=== PATIENT | male | born 1955 | race African-American/Black ===

== ENCOUNTER 2018-07-09 00:34 | Observation (INO) | payer OTHER, SELFPAY ==
[2018-07-09] MEDS ORDERED: Nitroglycerin 0.4 MG TAB (25 Tab Bottle) ONE (00:59)
[2018-07-09] MEDS ORDERED: Morphine 4 MG/ML VIAL ONE (01:02)
[2018-07-09] MEDS ORDERED: Clopidogrel Bisulfate 75 MG TAB ONE (01:02)
[2018-07-09 01:05] LABS: #Eosinphils 0.1 thou/uL (0.0-0.7); #Lymphocytes 1.8 thou/uL (1.20-3.40); #Monocytes 0.4 thou/uL (0.11-0.59); #Neutrophils 2.1 thou/uL (1.40-6.50); %Basophils 0.6 % (0.0-1.0); %Eosinophils 1.6 % (0.0-10.0); %Lymphocytes 41.5 % (21.0-51.0); %Monocytes 8.9 % (0.0-10.0); %Neutrophils 47.4 % (42.0-75.0); Hemoglobin 11.4 g/dL (14.0-18.0); Mean Corpuscular HGB CONC 32.1 g/dL (32.0-36.0); Mean Corpuscular Hemoglobin 27.7 pg (27.0-31.0); Mean Corpuscular Volume 86.1 fL (78.0-98.0); Mean Platelet Volume 6.5 fL (7.4-10.4); Platelet Count 224 thou/uL (130-400); Red Blood Cell (RBC) Count 4.12 mill/uL (4.70-6.10); White Blood Cell (WBC) Count 4.4 thou/uL (4.8-10.8)
[2018-07-09 01:28] LABS: ALT (SGPT) Less than 7 U/L (8-55); AST (SGOT) 12 U/L (5-34); Albumin 3.5 g/dL (3.5-5.0); Alkaline Phosphatase 55 U/L (40-150); Anion Gap 11 mmol/L (10-20); BUN (Urea Nitrogen) 24 mg/dL (8.4-25.7); Bilirubin, Total 0.3 mg/dL (0.2-1.2); CK (CPK) 67 U/L (30-200); Calc. Creatinine Clearance 0 mL/min (70-130); Calcium 8.9 mg/dL (7.8-10.44); Carbon Dioxide 25 mmol/L (22-29); Chloride 107 mmol/L (98-107); Estimated GFR-MDRD 43; Globulin 3.2 g/dL (2.4-3.5); Glucose 168 mg/dL (70-105); Lipase 33 U/L (8-78); Protein, Total 6.7 g/dL (6.0-8.3); Sodium 139 mmol/L (136-145)
[2018-07-09 01:40] LABS: Troponin I Less than 0.010 ng/mL (< 0.028)
[2018-07-09] MEDS ORDERED: Acetaminophen 325 MG TAB PO PRN ×2 (03:43→09:34)
[2018-07-09] MEDS ORDERED: Nitroglycerin 0.4 MG TAB (25 Tab Bottle) SL PRN (03:44)
[2018-07-09] MEDS ORDERED: Ondansetron HCl/PF 4 MG/2 ML Vial IVP PRN (03:47)
[2018-07-09] MEDS ORDERED: hydrALAZINE 20 MG/ML VIAL SLOW IVP PRN ×2 (03:47→09:48)
[2018-07-09 03:58] VITALS: BMI 27.9
[2018-07-09 04:50] LABS: Cardiac Risk 5.1 (Less than 4.5)
[2018-07-09 04:55] LABS: Troponin I Less than 0.010 ng/mL (< 0.028)
[2018-07-09 07:37] LABS: Troponin I Less than 0.010 ng/mL (< 0.028)
--- NOTE | 2018-07-09 08:26 | RAD ---
CHEST 1 VIEW: HISTORY: Chest pain. COMPARISON: 02/19/17. FINDINGS: Cardiac silhouette is magnified by projection. Pulmonary vasculature upper limits of normal. Medias tinum is midline. No lobar consolidation or evidence of pneumothorax. IMPRESSION: No active cardiopulmonary abnormalities are demonstrated. POS: [facility]
[2018-07-09] MEDS ORDERED: Pantoprazole 40 MG VIAL IVP SCH (09:00)
[2018-07-09] MEDS ORDERED: Nitroglycerin 0.4 MG TAB (25 Tab Bottle) PO PRN (09:34)
[2018-07-09] MEDS ORDERED: Sodium Chloride 0.9% 1,000 ML IV SCH (09:45)
[2018-07-09] MEDS ORDERED: Dextrose 5% in Water 1,000 ML IV PRN (09:45)
[2018-07-09] MEDS ORDERED: HumaLOG 300 UNITS/3 ML VIAL SC PRN (09:45)
[2018-07-09] MEDS ORDERED: Dextrose 50% Abboject 50 ML SYRINGE SLOW IVP PRN (09:45)
[2018-07-09] MEDS: Heparin 5,000 UNITS/ML VIAL SC SCH ×2 (14:37→21:46)
[2018-07-09] MEDS ORDERED: Amlodipine 5 MG TAB PO SCH (14:45)
--- NOTE | 2018-07-09 16:05 | PRG ---
DATE OF SERVICE: 07/09/2018 REASON FOR CONSULTATION: Recurrent chest pain. Mr. Rayshawn Richards is a delightful 62-year-old gentleman. He was seen here in 2017 with chest estrada n, found to have minimal coronary atherosclerosis as will be outlined below. He is readmitted with c hest pain. Mr. Richards recently had a stroke and he was in [place] at that time where he lives primarily. His w gill on the phone tells me that the patient's blood pressure was elevated as well and he was on lisino pril and the dose was increased. He came into the hospital. He has left lower lateral chest pain du plicated with palpation. There is no substernal chest pain, pressure, heaviness or squeezing, really nothing to suggest angina. In view of his past history, he was brought to the hospital for observat ion and possible admission. MEDICATIONS: 1. He takes aspirin 81 mg a day. 2. He is not on a statin. 3. Metoprolol 50 mg twice daily. 4. Lisinopril 40 mg a day. He lists aspirin as an allergy, but he is not allergic as he is taking 81 mg a daily. REVIEW OF SYSTEMS: CONSTITUTIONAL: No significant weight gain or loss. VISION: No changes. HEARING: No changes. PULMONARY: No cough or wheezing. GASTROINTESTINAL: No nausea, vomiting, diarrhea. SKIN: No rashes. NEUROLOGIC: No unilateral weakness or numbness. PSYCHIATRIC: No unusual depression or anxiety. PHYSICAL EXAMINATION: GENERAL: This is a pleasant gentleman, in no distress. VITAL SIGNS: Blood pressure is still high, earlier it was 190/112, now 164/100, pulse 87 regular. EYES: Sclerae nonicteric. Mouth, mucous membranes moist. NECK: Supple. No lymphadenopathy. LUNGS: Clear. CARDIAC: Normal S1, normal S2. There is no murmur, rub or gallop. ABDOMEN: Soft, nontender. EXTREMITIES: No clubbing or cyanosis. He has no edema. He has very strong dorsalis pedis pulses bi laterally. DIAGNOSTIC DATA: EKG sinus rhythm, some nonspecific T-wave changes in V5 and V6, all the cardiac enz ymes were negative. I reviewed cardiac catheterization report, there was a very distal lesion in the distal LAD near the apex. ASSESSMENT: 1. Noncardiac chest pain, rib pain. 2. Recent stroke. 3. Hypertension. 4. Worsening renal function on increased lisinopril dose. PLAN: 1. Continue intravenous hydration. 2. Would add amlodipine 5 mg today, then increase to 10 mg daily if needed. 3. Reduce lisinopril to 10 mg a day. 4. We will be able to release him tomorrow. 5. He needs to be on a statin. 6. He can take aspirin 81 mg a day which he has been taking at home. Dr. Shaw to see if needed tomorrow. The patient should be able to be released home tomorrow. I wo uld also recommend consideration for giving him nitroglycerin if needed. I explained to him that thi s is for substernal squeezing chest pain, not the left lower lateral pain that he has been having. H is coronary artery disease should be treated medically.
--- NOTE | 2018-07-09 16:15 | HP ---
PRIMARY CARE PROVIDER: Dr. Silverio Newman. CHIEF COMPLAINT: Chest pain. HISTORY OF PRESENT ILLNESS: Mr. Richards is a pleasant 62-year-old gentleman who was seen at [facility] on 07/09/2018. He was able to provide some history. His son who was by the bedside was also able to provide some co llateral history. Additional history was obtained from review of medical records and from discussion with the emergency room physician. The pain reportedly started last night while he was sitting at his house. According to the son, the patient kept falling asleep and was lethargic. He also appeared confused at times that has improved since then. The patient describes it as left-sided chest pain, sharp, 10/10, constant, accompanied b y lightheadedness. He denies any cough, fevers or chills. He denies any nausea or vomiting. He den ies any shortness of breath or diaphoresis. The pain was nonradiating. REVIEW OF SYSTEMS: All other systems reviewed and found to be negative. PAST MEDICAL HISTORY: Coronary artery disease, he had a cardiac catheterization in 02/2017, at which time he was found to have severe distal LAD disease, small vessel 1.5 mm, mild left circumflex and R CA disease and elevated LVEDP. He also has a history of diabetes mellitus type 2, hypertension, and cerebrovascular accident. PAST SURGICAL HISTORY: Abscess on the back, status post incision and drainage. FAMILY HISTORY: Coronary artery disease in his parents. SOCIAL HISTORY: The patient denies tobacco use, alcohol use or recreational drug use. ALLERGIES: ASPIRIN. CURRENT MEDICATIONS: Glipizide 10 mg 2 times a day, lisinopril 20 mg daily, metformin 1000 mg 2 time s a day. PHYSICAL EXAMINATION: GENERAL: Mr. Richards is awake and alert, not in acute distress. VITAL SIGNS: Blood pressure is 156/89, pulse 89, respiratory rate 16, and oxygen saturation 94% on r oom air. He is afebrile. EYES: No scleral icterus. No conjunctival pallor. ENT: Dry mucosal membranes. No oropharyngeal erythema or exudates. NECK: Supple, nontender. Trachea is midline. RESPIRATORY: Accessory muscles of breathing are not active. Chest wall movements are symmetric bila terally. LUNGS: Clear to auscultation without wheeze, rhonchi or crepitations. CARDIOVASCULAR: S1 and S2 are heard, regular. Peripheral pulses palpable. No carotid bruit, no per icardial rub. ABDOMEN: Soft, nontender, bowel sounds heard, no hepatomegaly, no splenomegaly. NEUROLOGIC: Cranial nerves II-XII intact. Deep tendon reflexes 2+. MUSCULOSKELETAL: Power is 5/5 in all 4 extremities. SKIN: No rashes or subcutaneous nodules. LYMPHATIC: No cervical lymphadenopathy. PSYCHIATRIC: Normal mood, normal affect. The patient is oriented to person, place, and time. DATABASE: Mr. Richards's labs and investigations were reviewed. I reviewed his electrocardiogram, w hich shows normal sinus rhythm, no ST changes to suggest an acute coronary syndrome. I also reviewed his chest x-ray, which does not show any pulmonary infiltrates. He has a leukopenia with 4400 white cells, normocytic anemia with hemoglobin 11.4, normal platelet count, normal electrolytes, elevated creatinine of 1.92, last known creatinine 1.36 on 02/21/2017, normal blood urea nitrogen, unremarkabl e liver profile and normal lipase. Troponin I is negative x2. ASSESSMENT AND PLAN: Mr. Richards is a pleasant 62-year-old gentleman who was seen at [facility] on 07/09/2018. His problem list includes: 1. Chest pain: Differential is wide at this point. Given the findings from coronary angiography la [facility] May, it is unlikely to be one of the major cardiac vessels. Known coronary artery disease in dist al LAD was not amenable to treatment. I will consult Cardiology Service for opinion and help with kathleen vargas. 2. Acute on chronic kidney disease. He has a normal BUN. I will hold metformin for now. We will a lso hold lisinopril for now. We will recheck creatinine in the morning. We will provide him intrave nous fluids. 3. Hypertension: Monitor vital signs, titrate antihypertensives as needed. As mentioned earlier, l isinopril to be held for now. 4. Leukopenia: No evidence of any infection at this time. He will have his white count rechecked i n the morning. If it is persistent, he will need to be rechecked as an outpatient through his primar y care provider's office in a week or two and further management depending on the result. Many thanks for allowing me to participate in your patient's care. Please feel free to contact me wi th any questions or concerns. LEVEL OF RISK: High. LEVEL OF COMPLEXITY: High.
[2018-07-09] MEDS: Sodium Chloride 0.9% 1,000 ML IV SCH ×2 (16:44→21:45)
[2018-07-09] MEDS ORDERED: Atorvastatin Calcium 20 MG TAB PO SCH (21:00)
[2018-07-09] MEDS: Metoprolol Tartrate 50 MG TAB PO SCH (21:46)
[2018-07-10] MEDS ORDERED: Labetalol HCl 100 MG/20 ML VIAL SLOW IVP PRN (01:29)
[2018-07-10 05:40] LABS: #Eosinphils 0.1 thou/uL (0.0-0.7); #Lymphocytes 1.6 thou/uL (1.20-3.40); #Monocytes 0.3 thou/uL (0.11-0.59); #Neutrophils 2.9 thou/uL (1.40-6.50); %Basophils 0.5 % (0.0-1.0); %Eosinophils 1.4 % (0.0-10.0); %Lymphocytes 32.3 % (21.0-51.0); %Monocytes 6.8 % (0.0-10.0); %Neutrophils 59.1 % (42.0-75.0); Hemoglobin 11.8 g/dL (14.0-18.0); Mean Corpuscular HGB CONC 32.6 g/dL (32.0-36.0); Mean Corpuscular Hemoglobin 27.8 pg (27.0-31.0); Mean Corpuscular Volume 85.4 fL (78.0-98.0); Mean Platelet Volume 6.4 fL (7.4-10.4); Platelet Count 248 thou/uL (130-400); Red Blood Cell (RBC) Count 4.24 mill/uL (4.70-6.10)
[2018-07-10 05:49] LABS: Anion Gap 11 mmol/L (10-20); BUN (Urea Nitrogen) 14 mg/dL (8.4-25.7); Calc. Creatinine Clearance 80 mL/min (70-130); Calcium 8.7 mg/dL (7.8-10.44); Carbon Dioxide 23 mmol/L (22-29); Chloride 109 mmol/L (98-107); Estimated GFR-MDRD 73; Glucose 95 mg/dL (70-105); Potassium 3.5 mmol/L (3.5-5.1); Sodium 139 mmol/L (136-145)
[2018-07-10] MEDS: Metoprolol Tartrate 50 MG TAB PO SCH (06:35)
[2018-07-10] MEDS: Heparin 5,000 UNITS/ML VIAL SC SCH (08:07)
[2018-07-10 08:18] VITALS: BP 133/70; TEMP 98.3
[2018-07-10] MEDS ORDERED: Amlodipine 5 MG TAB PO SCH (09:00)
[2018-07-10] MEDS ORDERED: Lisinopril 10 MG TAB PO SCH (09:00)
[2018-07-10] MEDS ORDERED: Aspirin 81 mg Enteric Coated Tablet PO SCH (09:00)
[2018-07-10] MEDS ORDERED: Pioglitazone HCl 15 MG TAB PO SCH (09:00)
[2018-07-10] MEDS: Sodium Chloride 0.9% 1,000 ML IV SCH (10:33)
--- NOTE | 2018-07-10 12:49 | DIS ---
PRIMARY CARE PHYSICIAN: Dr. Silverio Newman in [place] DATE OF ADMISSION: 07/09/2018 DATE OF DISCHARGE: 07/10/2018 DISCHARGE DIAGNOSES: 1. Chest pain. 2. Probable musculoskeletal etiology for chest pain. 3. Acute renal insufficiency. CONDITION OF PATIENT ON THE DAY OF DISCHARGE: Stable. I assessed Mr. Richards on the day of dischar . He denies any chest pain at this time. Vital signs are stable. S1 and S2 are heard, regular. Lungs are clear to auscultation bilaterally. DISCHARGE MEDICATIONS: Glipizide 10 mg 2 times a day, metformin 1000 mg 2 times daily, Lopressor 50 mg 2 times a day, pioglitazone 30 mg daily, nitroglycerin 0.4 mg every 5 minutes as needed, patient t o seek medical help if not improving after 3 doses, amlodipine 5 mg daily, can be increased to 10 mg daily, started during this hospitalization, aspirin 81 mg daily, Lipitor 20 mg at bedtime, started du ring this hospitalization, lisinopril dose decreased to 10 mg daily. CONSULTATIONS DURING THIS HOSPITALIZATION: Dr. Taylor from Cardiology. HOSPITAL COURSE: Mr. Richards is a pleasant 62-year-old gentleman who was admitted to [facility] on 07/09/2018 for chest pain and acute renal insufficiency. Please refer to my h istory and physical note dated 07/09/2018 for further details. He was seen by Cardiology Service. I t was felt that his chest pain was likely musculoskeletal. He has been started on statin. His lisin opril dose was decreased due to renal insufficiency. He also received intravenous hydration. Creati nine improved to 1.23 on 07/10/2018, down from 1.92 on the day of admission. He had triglycerides 14 7, cholesterol 152, LDL cholesterol 93 and his total cholesterol 30. He has been started on statin. He had a D-dimer that was less than 0.27. His chest pain resolved. He is being discharged home in a stable condition. He had unremarkable ko er function test during this hospitalization. He is advised to follow up with his primary care provi delvin for monitoring of LFTs and for side effects from statin. On the day of discharge, he has white count 5000, hemoglobin 11.8, and platelet count 248,000. Sodiu m is 139, potassium 3.5, creatinine 1.23. Many thanks for allowing me to participate in your patient's care. Please feel free to contact me wi th any questions or concerns. DISCHARGE DESTINATION: Home.
--- NOTE | 2018-07-11 17:37 | EKG ---
Test Reason : CHESTPAIN Blood Pressure : / mmHG Vent. Rate : 080 BPM Atrial Rate : 080 BPM P-R Int : 148 ms QRS Dur : 082 ms QT Int : 378 ms P-R-T Axes : 036 -10 157 degrees QTc Int : 435 ms Normal sinus rhythm Abnormal ECG Confirmed by BIMAL VILLARREAL, WALT ([id number]), multimedia editor SOHAN HURST ([id number]) on 07/11/2018 5:36:53 PM Referred By: BIMAL Confirmed By:WALT WALLIS MD
== END 2018-07-10 14:30 | disposition home or self-care (01) ==
LOC: ERS 00:34 → 2SW 01:52
PROVIDERS: ADMIT Internal Medicine; ATTEND Internal Medicine
DX: R07.89 Other chest pain (principal); I12.9 Hypertensive chronic kidney disease with stage 1 through stage 4 chronic kidney disease, or unspecified chronic kidney disease; E11.22 Type 2 diabetes mellitus with diabetic chronic kidney disease; N18.9 Chronic kidney disease, unspecified; N17.9 Acute kidney failure, unspecified; I25.10 Atherosclerotic heart disease of native coronary artery without angina pectoris; D72.819 Decreased white blood cell count, unspecified; Z86.73 Personal history of transient ischemic attack (TIA), and cerebral infarction without residual deficits; Z79.82 Long term (current) use of aspirin; Z79.84 Long term (current) use of oral hypoglycemic drugs; Z79.899 Other long term (current) drug therapy
CPT/HCPCS: 36415; 36416; 71045; 80048; 80053; 80061; 82550; 83690; 83880; 84484; 85025; 85379; 90471; 90686; 93005; 96361; 96374; 96375; 96376; C9113; G0008; G0378; J0360; J1644; J2270; J2405

== ENCOUNTER 2018-09-16 18:37 | Emergency (ER) | payer OTHER ==
[2018-09-16] MEDS ORDERED: Fentanyl 100 MCG/2 ML VIAL ONE (18:47)
[2018-09-16] MEDS ORDERED: Ondansetron PF 4 MG/2 ML Vial ONE (18:47)
[2018-09-16 19:07] LABS: #Eosinphils 0.1 thou/uL (0.0-0.7); #Lymphocytes 2.4 thou/uL (1.20-3.40); #Monocytes 0.4 thou/uL (0.11-0.59); #Neutrophils 2.7 thou/uL (1.40-6.50); %Basophils 0.5 % (0.0-1.0); %Eosinophils 1.5 % (0.0-10.0); %Lymphocytes 43.1 % (21.0-51.0); %Monocytes 6.3 % (0.0-10.0); %Neutrophils 48.6 % (42.0-75.0); Hemoglobin 12.1 g/dL (14.0-18.0); Mean Corpuscular HGB CONC 31.5 g/dL (32.0-36.0); Mean Corpuscular Hemoglobin 27.2 pg (27.0-31.0); Mean Corpuscular Volume 86.5 fL (78.0-98.0); Mean Platelet Volume 6.8 fL (7.4-10.4); Platelet Count 313 thou/uL (130-400); Red Blood Cell (RBC) Count 4.45 mill/uL (4.70-6.10); White Blood Cell (WBC) Count 5.5 thou/uL (4.8-10.8)
[2018-09-16 19:16] LABS: Prothrombin Time 13.4 SEC (12.0-14.7)
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
[2018-09-16 20:01] LABS: ALT (SGPT) 11 U/L (8-55); AST (SGOT) 16 U/L (5-34); Alkaline Phosphatase 108 U/L (40-150); Anion Gap 14 mmol/L (10-20); BUN (Urea Nitrogen) 21 mg/dL (8.4-25.7); Bilirubin, Total 0.3 mg/dL (0.2-1.2); Calc. Creatinine Clearance 0 mL/min (70-130); Calcium 9.1 mg/dL (7.8-10.44); Carbon Dioxide 22 mmol/L (22-29); Chloride 108 mmol/L (98-107); Estimated GFR-MDRD 41; Globulin 4.3 g/dL (2.4-3.5); Glucose 190 mg/dL (70-105); Potassium 4.3 mmol/L (3.5-5.1); Protein, Total 8.3 g/dL (6.0-8.3); Sodium 140 mmol/L (136-145)
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
[2018-09-16] MEDS ORDERED: Lisinopril 10 MG TAB ONE (20:31)
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
--- NOTE | 2018-09-19 13:36 | EKG ---
Test Reason : TRAUMA Blood Pressure : / mmHG Vent. Rate : 091 BPM Atrial Rate : 091 BPM P-R Int : 192 ms QRS Dur : 082 ms QT Int : 356 ms P-R-T Axes : 053 017 -22 degrees QTc Int : 437 ms Normal sinus rhythm Confirmed by MARIO MCGUIRE DO ([id number]), acquisitions editor CANELO CARBONE ([id number]) on 09/19/2018 1:35:30 PM Referred By: MAYNOR Confirmed By:MARIO MCGUIRE DO
== END 2018-09-16 23:56 | disposition home or self-care (01) ==
LOC: ERS 18:37
DX: S70.02XA Contusion of left hip, initial encounter (principal); S70.311A Abrasion, right thigh, initial encounter; S80.212A Abrasion, left knee, initial encounter; E11.9 Type 2 diabetes mellitus without complications; I10 Essential (primary) hypertension; Z79.84 Long term (current) use of oral hypoglycemic drugs; Z79.899 Other long term (current) drug therapy; W17.89XA Other fall from one level to another, initial encounter
CPT/HCPCS: 36415; 70450; 71260; 72125; 72170; 74177; 80053; 85025; 85610; 86850; 86900; 86901; 93005; 96361; 96374; 96375; G0390; J2405; J3010

== ENCOUNTER 2020-03-31 20:00 | Inpatient (IN) | payer MEDICARE, MEDICAID, OTHER ==
[2020-03-31] MEDS ORDERED: Morphine 4 MG/ML VIAL ONE (21:15)
[2020-03-31] MEDS ORDERED: Ondansetron PF 4 MG/2 ML Vial ONE (21:15)
[2020-03-31 21:33] LABS: #Lymphocytes 0.9 thou/uL (1.20-3.40); #Monocytes 0.3 thou/uL (0.11-0.59); #Neutrophils 2.7 thou/uL (1.40-6.50); %Basophils 1.1 % (0.0-1.0); %Eosinophils 0.3 % (0.0-10.0); %Monocytes 8.5 % (0.0-10.0); Hemoglobin 11.1 g/dL (14.0-18.0); Mean Corpuscular HGB CONC 32.1 g/dL (32.0-36.0); Mean Corpuscular Hemoglobin 27.4 pg (27.0-31.0); Mean Corpuscular Volume 85.2 fL (78.0-98.0); Platelet Count 135 thou/uL (130-400); RBC Distribution Width 12.6 % (11.5-14.5); Red Blood Cell (RBC) Count 4.03 mill/uL (4.70-6.10)
[2020-03-31 21:55] LABS: ALT (SGPT) 11 U/L (8-55); AST (SGOT) 17 U/L (5-34); Albumin 3.1 g/dL (3.4-4.8); Alkaline Phosphatase 67 U/L (40-110); Anion Gap 11 mmol/L (10-20); BUN (Urea Nitrogen) 46 mg/dL (8.4-25.7); Bilirubin, Total 0.3 mg/dL (0.2-1.2); Calc. Creatinine Clearance 0 mL/min (70-130); Calcium 7.7 mg/dL (7.8-10.44); Carbon Dioxide 23 mmol/L (23-31); Chloride 106 mmol/L (98-107); Estimated GFR-MDRD 11; Globulin 3.6 g/dL (2.4-3.5); Glucose 145 mg/dL (80-115); Lipase 77 U/L (8-78); Potassium 4.3 mmol/L (3.5-5.1); Protein, Total 6.7 g/dL (5.8-8.1); Sodium 136 mmol/L (136-145)
[2020-03-31 22:19] LABS: Bacteria/HPF None Seen HPF (None Seen); Bilirubin Negative (Negative); Blood, Urine 2+ (Negative); Clarity Clear (Clear); Glucose, Urine (Dipstick) 200 mg/dL (Negative); Ketone, Urine Negative (Negative); Leukocyte Negative Leu/uL (Negative); Nitrite Negative (Negative); Protein, Urine (Dipstick) 600 mg/dL (Neg-Trace); Specific Gravity, Urine 1.021 (1.002-1.036); Squamous Epithelial 0-3 HPF (0-3); Urobilinogen Normal mg/dL (Less than 2); WBC/HPF 0-3 HPF (0-3); pH, Urine 6.5 (5.0-9.0)
--- NOTE | 2020-03-31 22:22 | CT ---
CT OF THE ABDOMEN AND PELVIS WITHOUT IV CONTRAST INDICATION: Generalized abdominal pain COMPARISON: January 11, 2020 FINDINGS: The lack of IV contrast limits evaluation of the solid organs of the abdomen and pelvis. ABDOMEN: Lung bases: There are patchy peripheral airspace opacities within both lungs suspicious for pneumonia . Liver: No focal lesion. Gallbladder: Normal appearing. Pancreas: Normal. Adrenal glands: Normal. Spleen: Normal. Kidneys and ureters: Normal. No hydronephrosis. Vasculature: There are mild vascular calcifications seen involving the visualized vasculature. Lymph nodes:No lymphadenopathy. Free fluid in abdomen:No free fluid is evident. PELVIS: Small and large bowel: There is a moderate amount retained stool within the colon. The small bowel is of normal caliber. Appendix:Normal Bladder: Small amount of intraluminal gas is seen within the bladder. Rectal and perirectal soft tissues:Normal. Reproductive structures: Normal. Free fluid in pelvis: No free fluid is evident. Lymphadenopathy pelvis: No lymphadenopathy is evident. Osseous structures: There is a hemangioma within the right aspect of L3. There is scattered degenera tive and osteoarthritic changes. Soft tissues:Normal. IMPRESSION: 1. Patchy peripheral subpleural groundglass opacities are suspicious for pneumonia. This is a pattern that can be seen with atypical infectious processes such as viral pneumonia. Would recommend consideration for Covid testing as this is a pattern that can be seen with a Covid respiratory illnes s. 2. Small amount of intraluminal gas within the bladder. Recommend correlation for recent instrumentat ion. UTIs not excluded. Recommend correlation clinical examination and urinary laboratories.
[2020-04-01] MEDS ORDERED: hydrALAZINE 20 MG/ML VIAL ONE (01:52)
[2020-04-01] MEDS ORDERED: cefTRIAXone\\ROCEPHIN 1 GM VIAL ONE (01:52)
[2020-04-01] MEDS ORDERED: Azithromycin 500 MG VIAL ONE (02:30)
[2020-04-01] MEDS ORDERED: HYDROcodone/Acetaminophen 5/325 mg Tablet PO PRN (02:30)
[2020-04-01] MEDS ORDERED: Acetaminophen 325 MG TAB PO PRN ×2 (02:30→04:29)
[2020-04-01] MEDS ORDERED: Labetalol HCl 100 MG/20 ML VIAL SLOW IVP PRN ×2 (02:30→04:30)
[2020-04-01] MEDS ORDERED: Ondansetron PF 4 MG/2 ML Vial IVP PRN ×3 (02:30→04:30)
[2020-04-01] MEDS ORDERED: Promethazine HCl 12.5 MG in Sodium Chloride 0.9% 50 ML IVPB PRN (02:30)
[2020-04-01] MEDS ORDERED: Azithromycin 500 MG in Syringe 0 ML IVPB ONE (02:30)
[2020-04-01] MEDS ORDERED: cloNIDine 0.1 MG TAB PO PRN (02:30)
[2020-04-01] MEDS ORDERED: hydrALAZINE 20 MG/ML VIAL SLOW IVP PRN (02:30)
[2020-04-01] MEDS ORDERED: Guaifenesin DM 100-10/5 ML UDCUP PO PRN ×2 (02:30→04:30)
[2020-04-01] MEDS ORDERED: Dextrose 5% in Water 1,000 ML IV PRN ×2 (02:32→04:31)
[2020-04-01] MEDS ORDERED: Dextrose 50% Abboject 50 ML SYRINGE SLOW IVP PRN ×2 (02:32→04:32)
[2020-04-01] MEDS ORDERED: Insulin Regular 300 UNITS/3 ML VIAL SC PRN (02:32)
--- NOTE | 2020-04-01 02:33 | PDOC.HHP ---
Hospitalist HPI - History of Present Illness Abdominal pain History of Present Illness: Patient is a 64 year old male with PMH HTN, CKD who presents to the ED for abdominal pain beginning today, he reports it is diffuse but worse in the RLQ and he admits to nausea and vomiting, denies diarrhea, denies chest pain or shortness of breath or fever. Denies dysuria, denies flank pain or back tenderness. He has been unable to take PO. NTG and zofran given by EMS without relief. He does not have a PCP. He has CKD, normal baseline Cr in 3-4 range, in ED labs revealed Cr of 6.13, with CO2 and K within normal limits. UA positve for erythrocytes, glucose, protein. He was febrile in ED to 100.3. He has recent exposure to covid, his sister [address] abdomen in ED concerning for bilateral pneumonia/COVID based on visible sections of lungs, CXR ordered and pending. Hospitalist ROS - Review of Systems Constitutional: denies: fever, chills, sweats, weakness, malaise, other Eyes: denies: pain, vision change, conjunctivae inflammation, eyelid inflammation, redness, other Respiratory: denies: cough, dry, shortness of breath, hemoptysis, SOB with excertion, pleuritic pain, sputum, wheezing, other Cardiovascular: denies: chest pain, palpitations, orthopnea, paroxysmal noc. dyspnea, edema, light headedness, other Gastrointestinal: reports: nausea, vomiting, abdominal pain. denies: diarrhea, constipation, melena, hematochezia, other Genitourinary: denies: dysuria, frequency, incontinence, hematuria, retention, other Musculoskeletal: denies: neck pain, shoulder pain, arm pain, back pain, hand pain, leg pain, foot pain, other Skin: denies: rash, lesions, santosh, bruising, other Neurological: denies: weakness, numbness, incoordination, change in speech, confusion, seizures, other All other systems reviewed; all pertinent +/- noted in HPI/Subj Hospitalist History - Past Medical History Other Medical History: HTN CKD DM stroke 2016 - Past Surgical History Other Surgical History: back surgery - Family History Family History: reports: no pertinent history - Social History Smoking Status: Never smoker Alcohol: reports: None Drugs: reports: none - Exam General Appearance: NAD, awake alert Eye: PERRL, anicteric sclera ENT: normocephalic atraumatic, no oropharyngeal lesions, moist mucosa Neck: supple, symmetric, no JVD, no thyromegaly, no lymphadenopathy, no carotid bruit Heart: RRR, no murmur, no gallops, no rubs, normal peripheral pulses Respiratory: CTAB, no wheezes, no rales, no ronchi, normal chest expansion, no tachypnea, normal percussion Gastrointestinal: soft, non-distended, normal bowel sounds, no palpable masses, no hepatomegaly, no splenomegaly, no bruit Gastrointestinal - other findings: TTP in RLQ, no guarding or rebound Extremities: no cyanosis, no clubbing, no edema Skin: normal turgor, no lesions, no rashes Neurological: cranial nerve grossly intact, normal sensation to touch, no weakness, no focal deficits, no new deficit Musculoskeletal: normal tone, normal strength, no muscle wasting Psychiatric: normal affect, normal behavior, A&O x 3 Hospitalist Results - Labs Result Diagrams: 03/31/20 21:19 03/31/20 21:19 Lab results: WBC 4.0 thou/uL (4.8-10.8) L 03/31/20 21:19 Hgb 11.1 g/dL (14.0-18.0) L 03/31/20 21:19 Hct 34.4 % (42.0-52.0) L 03/31/20 21:19 MCV 85.2 fL (78.0-98.0) 03/31/20 21:19 Plt Count 135 thou/uL (130-400) 03/31/20 21:19 Neutrophils % 68.0 % (42.0-75.0) 03/31/20 21:19 Sodium 136 mmol/L (136-145) 03/31/20 21:19 Potassium 4.3 mmol/L (3.5-5.1) 03/31/20 21:19 Chloride 106 mmol/L (98-107) 03/31/20 21:19 Carbon Dioxide 23 mmol/L (23-31) 03/31/20 21:19 BUN 46 mg/dL (8.4-25.7) H 03/31/20 21:19 Creatinine 6.13 mg/dL (0.7-1.3) H 03/31/20 21:19 Glucose 145 mg/dL (80-115) H 03/31/20 21:19 Calcium 7.7 mg/dL (7.8-10.44) L 03/31/20 21:19 Total Bilirubin 0.3 mg/dL (0.2-1.2) 03/31/20 21:19 AST 17 U/L (5-34) 03/31/20 21: ALT 11 U/L (8-55) 03/31/20 21:19 Alkaline Phosphatase 67 U/L (40-110) 03/31/20 21:19 Serum Total Protein 6.7 g/dL (5.8-8.1) 03/31/20 21: Albumin 3.1 g/dL (3.4-4.8) L 03/31/20 21: Lipase 77 U/L (8-78) 03/31/20 21:19 Urine Ketones Negative mg/dL (Negative) 03/31/20 22:02 Urine Blood 2+ (Negative) A 03/31/20 22:02 Urine Nitrite Negative (Negative) 03/31/20 22:02 Ur Leukocyte Esterase Negative Tad/uL (Negative) 03/31/20 22:02 Urine RBC 7-10 HPF (0-3) A 03/31/20 22:02 Urine WBC 0-3 HPF (0-3) 03/31/20 22:02 Ur Squamous Epith Cells 0-3 HPF (0-3) 03/31/20 22:02 Urine Bacteria None Seen HPF (None Seen) 03/31/20 22:02 Additional comment: VITAL SIGNS Sat Apr 01, 2020 02:31 DINH Oleary, Becka BP: 178/104 Pulse: 89 Resp: 16 Temp: 98.6 (Oral) Pain: 7 O2 sat: 97 on (Room Air) Time: 04/01/2020 02:31. VITAL SIGNS Sat Apr 01, 2020 03:00 DINH Oleary Rachel BP: 169/104 Pulse: 89 Resp: 17 O2 sat: 97 on (Room Air) Time: 04/01/2020 03:00. Imaging reveiwed including abdominal CT report Hospitalist H&P A/P - Plan Plan: Patient is a 64 year old male with PMH HTN, CKD who presents to the ED for abdominal pain beginning today. # acute renal failure on CKD 4 - baseline Cr in 2-3 range, now 6.13, possibly secondary to uncontrolled HTN vs sepsis - treat HTN as below - trend BMP - I/Os, bladder scan to rule out retention - consult nephrology # abdominal pain, borderline febrile, concern for developing sepsis - suspect etiology COVID or other pneumonia given lung findings seen on abdominal CT - covid test ordered, follow up results and final CXR findings, will start empiric azithromycin and ceftriaxone in the meantime # HTN - resume home meds, prn medications ordered as well. # DM - continue glipizide, hold other home meds, SSI # history of stroke - noted, no focal changes neurologically # DVT ppx - heparin # GI ppx
[2020-04-01] MEDS ORDERED: Ondansetron ODT 4 MG TAB SL PRN (03:49)
[2020-04-01] MEDS: HYDROcodone/Acetaminophen 5/325 mg Tablet PO PRN ×2 (04:37→08:32)
[2020-04-01] MEDS: hydrALAZINE 20 MG/ML VIAL SLOW IVP PRN ×2 (04:38→11:49)
--- NOTE | 2020-04-01 07:40 | RAD ---
PORTABLE CHEST: HISTORY: Fever. COMPARISON: 07/09/2018. FINDINGS: Lungs are well aerated. There is a questioned hazy infiltrate in the left lower lung which may be si gnificant given history of possible COVID. No confluent consolidation. Lungs otherwise are clear an d unchanged. Heart and mediastinum unremarkable and stable. IMPRESSION: Hazy ground-glass infiltrate in the left lower lung cannot be excluded. POS: [facility]
[2020-04-01] MEDS: Polyethylene Glycol 3350 17 GM Packet PO SCH (08:24)
[2020-04-01] MEDS: Amlodipine 5 MG TAB PO SCH (08:28)
[2020-04-01] MEDS: Heparin 5,000 UNITS/ML VIAL SC SCH ×2 (08:28→19:27)
[2020-04-01] MEDS: Azithromycin 250 MG TAB PO SCH (08:28)
[2020-04-01] MEDS: Metoprolol Tartrate 50 MG TAB PO SCH ×2 (08:28→19:27)
[2020-04-01] MEDS: Famotidine 20 MG TAB PO SCH (08:32)
[2020-04-01] MEDS ORDERED: Famotidine 20 MG TAB PO SCH (09:00)
[2020-04-01] MEDS ORDERED: Polyethylene Glycol 3350 17 GM Packet PO SCH (09:00)
[2020-04-01] MEDS ORDERED: Azithromycin 250 MG TAB PO SCH (09:00)
[2020-04-01] MEDS ORDERED: Heparin 5,000 UNITS/ML VIAL SC SCH (09:00)
[2020-04-01 09:05] LABS: #Lymphocytes 0.8 thou/uL (1.20-3.40); #Monocytes 0.3 thou/uL (0.11-0.59); #Neutrophils 3.3 thou/uL (1.40-6.50); %Basophils 0.7 % (0.0-1.0); %Eosinophils 0.2 % (0.0-10.0); %Lymphocytes 17.3 % (21.0-51.0); %Monocytes 7.4 % (0.0-10.0); %Neutrophils 74.4 % (42.0-75.0); Hemoglobin 11.4 g/dL (14.0-18.0); Mean Corpuscular HGB CONC 33.5 g/dL (32.0-36.0); Mean Corpuscular Hemoglobin 28.3 pg (27.0-31.0); Mean Corpuscular Volume 84.3 fL (78.0-98.0); Platelet Count 133 thou/uL (130-400); RBC Distribution Width 12.7 % (11.5-14.5); Red Blood Cell (RBC) Count 4.05 mill/uL (4.70-6.10); White Blood Cell (WBC) Count 4.4 thou/uL (4.8-10.8)
[2020-04-01 09:19] LABS: Anion Gap 16 mmol/L (10-20); BUN (Urea Nitrogen) 47 mg/dL (8.4-25.7); Calc. Creatinine Clearance 16 mL/min (70-130); Calcium 7.8 mg/dL (7.8-10.44); Carbon Dioxide 18 mmol/L (23-31); Chloride 108 mmol/L (98-107); Estimated GFR-MDRD 11; Glucose 160 mg/dL (80-115); Potassium 4.5 mmol/L (3.5-5.1); Sodium 137 mmol/L (136-145)
--- NOTE | 2020-04-01 10:35 | PDOC.HOSPP ---
- Subjective Encounter Date: 04/01/20 (f/u pneumonia) Encounter Time: 10:32 Subjective: Pt was admitted overnight for abdominal pain, and presentation concerning for COVID. Pt reports the nausea now is intermittent, the pain is 6/10 in the RUQ. He had some vomiting earlier and feels hungry now. Some dry cough, denies any cp or dyspnea. - Objective Vital Signs & Weight: Vital Signs (12 hours) Temp Pulse Resp BP Pulse Ox 04/01/20 08:50 98.3 F 99 15 165/101 H 98 04/01/20 04:38 98 04/01/20 03:59 98.2 F 98 25 H 176/106 H 97 Weight Weight 199 lb 8 oz Result Diagrams: 04/01/20 08:43 04/01/20 08:43 Additional Labs: Accuchecks 04/01/20 06:17 POC Glucose 142 H EKG Reviewed by me: Yes (tele -sinus 90-100's) Hospitalist ROS - Medication Medications: Active Medications Generic Name Dose Route Start Last Admin Trade Name Freq PRN Reason Stop Dose Admin Hydrocodone Bitart/Acetaminophen 1 tab 04/01/20 04:30 04/01/20 08:32 [place] 5/325 PO 1 tab Q4H PRN Administration Moderate Pain (4-6) Amlodipine Besylate 5 mg 04/01/20 09:00 04/01/20 08:28 Norvasc PO 5 mg DAILY DIDIER Administration Azithromycin 250 mg 04/01/20 09:00 04/01/20 08:28 Zithromax PO 04/04/20 09:01 250 mg DAILY DIDIER Administration Famotidine 20 mg 04/01/20 09:00 04/01/20 08:32 Pepcid PO 20 mg QAM DIDIER Administration Heparin Sodium (Porcine) 5,000 units 04/01/20 09:00 04/01/20 08:28 Heparin SC 5,000 units BID DIDIER Administration Hydralazine HCl 10 mg 04/01/20 04:30 04/01/20 04:38 Apresoline SLOW IVP 10 mg Q6H PRN Administration SBP GREATER THAN 160 Metoprolol Tartrate 50 mg 04/01/20 09:00 04/01/20 08:28 Lopressor PO 50 mg BID DIDIER Administration Polyethylene Glycol 17 gm 04/01/20 09:00 04/01/20 08:24 Miralax PO Not Given DAILY DIDIER - Exam General Appearance: NAD Heart: RRR, no murmur Respiratory: no wheezes, no rales, no ronchi Respiratory - other findings: decreased BS at bases bilateral Gastrointestinal: soft, non-distended, normal bowel sounds Extremities: no cyanosis, no clubbing, no edema Psychiatric: normal affect Hosp A/P (1) Acute on chronic renal failure Code(s): N17.9 - ACUTE KIDNEY FAILURE, UNSPECIFIED; N18.9 - CHRONIC KIDNEY DISEASE, UNSPECIFIED Status: Acute Qualifiers: Chronic kidney disease stage: stage 4 (severe) (2) Pneumonia Code(s): J18.9 - PNEUMONIA, UNSPECIFIED ORGANISM Status: Acute Qualifiers: Laterality: bilateral Lung location: lower lobe of lung (3) Dyslipidemia Code(s): E78.5 - HYPERLIPIDEMIA, UNSPECIFIED Status: Chronic (4) History of stroke Code(s): Z86.73 - PRSNL HX OF TIA (TIA), AND CEREB INFRC W/O RESID DEFICITS Status: Chronic (5) Diabetes mellitus Code(s): E11.9 - TYPE 2 DIABETES MELLITUS WITHOUT COMPLICATIONS Status: Chronic Qualifiers: Diabetes mellitus type: type 2 Diabetes mellitus complication status: with kidney complications Diabetes mellitus complication detail: with chronic kidney disease Chronic kidney disease stage: stage 4 (severe) (6) HTN (hypertension) Code(s): I10 - ESSENTIAL (PRIMARY) HYPERTENSION Status: Chronic Qualifiers: Hypertension type: essential hypertension Qualified Code(s): I10 - Essential (primary) hypertension (7) Abdominal pain Code(s): R10.9 - UNSPECIFIED ABDOMINAL PAIN Status: Acute Qualifiers: Abdominal location: right upper quadrant Qualified Code(s): R10.11 - Right upper quadrant pain - Plan COVID rule out - sx are suspicious for this infection Acute on Chronic kidney disease - pt with volume depletion - will start low rate IVF - renal diet - clear liquids, advance as tolerated - Nephrology consult - monitor UOP Pneumonia - continue ABX - obtain COVID result DM - d/c glipizide and use ISS for now Dyslipidemia - continue statin and zetia dvt prophy - heparin gi prophy - on famotidine code status full reviewed plan of care with patient, no qustions or further needs at end of eval pt remains at high risk in current condition
[2020-04-01] MEDS: Sodium Chloride 0.9% 1,000 ML IV SCH (11:26)
[2020-04-01] MEDS: Insulin Regular 300 UNITS/3 ML VIAL SC PRN (11:38)
[2020-04-01] MEDS: cloNIDine 0.1 MG TAB PO PRN (13:20)
--- NOTE | 2020-04-01 13:26 | CON ---
DATE OF CONSULTATION: 04/01/2020 CONSULTING PHYSICIAN: Juan Gore MD REASON FOR CONSULTATION: Acute kidney injury. REASON FOR ADMISSION: Abdominal pain. HISTORY OF PRESENT ILLNESS: This is a 64-year-old male with history of hypertension and CKD, who came to the hospital with abdominal pain and is being evaluated. His creatinine was elevated from 3 to 4 range to 6.13. He was started on IV fluids this morning. He is also being tested for COVID and is on isolation. PAST MEDICAL HISTORY: Positive for hypertension, CKD, type 2 diabetes, stroke. PAST SURGICAL HISTORY: Back surgery. HOME MEDICATIONS: Reviewed. ALLERGIES: ASPIRIN. SOCIAL HISTORY: No smoking, alcohol, or illicit drugs. FAMILY HISTORY: No history of kidney disease. REVIEW OF SYSTEMS: Could not be obtained. PHYSICAL EXAMINATION: GENERAL: on COVID isolation. VITAL SIGNS: Temperature 98.3, pulse 85, respiratory rate 20, blood pressure 191/105. LABORATORY DATA: Potassium 4.5, BUN is 47, and creatinine is 6.2. Chest x-ray with hazy ground-glass appearance of the left lower lung. CT abdomen with no hydronephrosis. ASSESSMENT AND PLAN: 1. Acute kidney injury on chronic kidney disease, stage 3. Agree with IV fluids. Avoid nephrotoxins. 2. Chronic anemia. 3. History of hypertension. 4. Acidosis, mild. Avoid nephrotoxins. Renally dose the medications. Continue IV fluids. We will monitor. No hydronephrosis reported. Agree with normal saline at 50 mL/hr. Thank you for the consult. Plan discussed with . Job ID: [id number] ABIMAEL
[2020-04-01] MEDS: Promethazine HCl 12.5 MG in Sodium Chloride 0.9% 50 ML IVPB PRN (18:08)
[2020-04-01] MEDS: Atorvastatin Calcium 40 MG TAB PO SCH (19:27)
[2020-04-01] MEDS ORDERED: Atorvastatin Calcium 20 MG TAB PO SCH (21:00)
[2020-04-02] MEDS ORDERED: cefTRIAXone\\ROCEPHIN 1 GM in Sodium Chloride 0.9% 100 ML IVPB SCH (02:30)
[2020-04-02] MEDS: cefTRIAXone\\ROCEPHIN 1 GM in Sodium Chloride 0.9% 100 ML IVPB SCH (02:48)
[2020-04-02 05:38] LABS: #Lymphocytes 1.1 thou/uL (1.20-3.40); #Monocytes 0.4 thou/uL (0.11-0.59); #Neutrophils 2.8 thou/uL (1.40-6.50); %Basophils 0.4 % (0.0-1.0); %Eosinophils 0.4 % (0.0-10.0); %Lymphocytes 25.5 % (21.0-51.0); %Neutrophils 64.7 % (42.0-75.0); Hemoglobin 10.5 g/dL (14.0-18.0); Mean Corpuscular Hemoglobin 28.1 pg (27.0-31.0); Mean Corpuscular Volume 85.1 fL (78.0-98.0); Mean Platelet Volume 8.1 fL (7.4-10.4); Platelet Count 160 thou/uL (130-400); RBC Distribution Width 12.9 % (11.5-14.5); Red Blood Cell (RBC) Count 3.76 mill/uL (4.70-6.10); White Blood Cell (WBC) Count 4.4 thou/uL (4.8-10.8)
[2020-04-02] MEDS: Sodium Chloride 0.9% 1,000 ML IV SCH ×3 (05:59→19:52)
[2020-04-02 06:00] LABS: Anion Gap 14 mmol/L (10-20); BUN (Urea Nitrogen) 54 mg/dL (8.4-25.7); Calc. Creatinine Clearance 14 mL/min (70-130); Calcium 7.5 mg/dL (7.8-10.44); Carbon Dioxide 20 mmol/L (23-31); Chloride 108 mmol/L (98-107); Estimated GFR-MDRD 9; Glucose 103 mg/dL (80-115); Potassium 4.5 mmol/L (3.5-5.1); Sodium 137 mmol/L (136-145)
[2020-04-02] MEDS: Heparin 5,000 UNITS/ML VIAL SC SCH (08:53)
[2020-04-02] MEDS: Metoprolol Tartrate 50 MG TAB PO SCH ×2 (08:54→19:52)
[2020-04-02] MEDS: Azithromycin 250 MG TAB PO SCH (08:54)
[2020-04-02] MEDS: Ezetimibe 10 MG TAB PO SCH (08:54)
[2020-04-02] MEDS: Amlodipine 5 MG TAB PO SCH (08:54)
[2020-04-02] MEDS: Polyethylene Glycol 3350 17 GM Packet PO SCH (08:55)
[2020-04-02] MEDS: Famotidine 20 MG TAB PO SCH (08:55)
[2020-04-02] MEDS ORDERED: Non-Formulary Item 1 EACH (Atorvastatin Calcium [Lipitor] 80 MG) PO SCH (09:00)
[2020-04-02] MEDS ORDERED: Ezetimibe 10 MG TAB PO SCH (09:00)
[2020-04-02] MEDS: Promethazine HCl 12.5 MG in Sodium Chloride 0.9% 50 ML IVPB PRN (09:16)
[2020-04-02] MEDS ORDERED: Amlodipine 5 MG TAB PO SCH (10:00)
--- NOTE | 2020-04-02 10:01 | PDOC.HOSPP ---
- Subjective Encounter Date: 04/02/20 (f/u EDITH with CKD) Encounter Time: 09:59 Subjective: Pt reports feeling about the same - some nausea/vomiting. Denies abd pain, denies diarrhea. States he had some chest pain associated with abd sx. Denies any cough/difficulty breathing or other new sx. He reports urine output has picked up 'quite a bit', nursing staff recorded about 600 ml in past 24 hours. - Objective Vital Signs & Weight: Vital Signs (12 hours) Temp Pulse Resp BP Pulse Ox 04/02/20 09:20 99.3 F 84 18 176/101 H 95 04/02/20 03:00 98.8 F 77 16 145/89 H 95 04/02/20 00:25 149/93 H Weight Admit Weight 199 lb 8 oz Weight 199 lb 8 oz I&O: 04/01/20 04/02/20 04/03/20 06:59 06:59 06:59 Intake Total 1170 Output Total 350 Balance 820 Result Diagrams: 04/02/20 05:13 04/02/20 05:13 Additional Labs: Accuchecks 04/02/20 04/01/20 04/01/20 06:09 19:44 18:16 POC Glucose 96 124 H 134 H 04/01/20 11:41 POC Glucose 175 H EKG Reviewed by me: Yes (tele - sinus 80's, pvcs) Hospitalist ROS - Medication Medications: Active Medications Generic Name Dose Route Start Last Admin Trade Name Freq PRN Reason Stop Dose Admin Hydrocodone Bitart/Acetaminophen 1 tab 04/01/20 04:30 04/01/20 08:32 [place] 5/325 PO 1 tab Q4H PRN Administration Moderate Pain (4-6) Atorvastatin Calcium 80 mg 04/01/20 21:00 04/01/20 19:27 Lipitor PO 80 mg HS DIDIER Administration Azithromycin 250 mg 04/01/20 09:00 04/02/20 08:54 Zithromax PO 04/04/20 09:01 250 mg DAILY DIDIER Administration Clonidine 0.1 mg 04/01/20 04:30 04/01/20 13:20 Catapres PO 0.1 mg BID PRN Administration SBP > 160 use second Ezetimibe 10 mg 04/02/20 09:00 04/02/20 08:54 Zetia PO 10 mg DAILY DIDIER Administration Famotidine 20 mg 04/01/20 09:00 04/02/20 08:55 Pepcid PO 20 mg QAM DIDIER Administration Heparin Sodium (Porcine) 5,000 units 04/01/20 09:00 04/02/20 08:53 Heparin SC 5,000 units BID DIDIER Administration Hydralazine HCl 10 mg 04/01/20 04:30 04/01/20 11:49 Apresoline SLOW IVP 10 mg Q6H PRN Administration SBP GREATER THAN 160 Promethazine HCl 12.5 mg/ 50.5 mls @ 202 mls/hr 04/01/20 04:31 04/02/20 09:16 Sodium Chloride IVPB 50.5 mls Q6H PRN Administration Nausea/vomiting use second Ceftriaxone Sodium 1 gm/ 100 mls @ 200 mls/hr 04/02/20 02:30 04/02/20 02:48 Sodium Chloride IVPB 04/05/20 04:30 100 mls Q24HR DIDIER Administration Insulin Human Regular 0 units 04/01/20 04:32 04/01/20 11:38 Humulin R SC 2 unit .MILD SLIDING SCALE PRN Administration Mild Correctional Scale Labetalol HCl 20 mg 04/01/20 04:30 04/01/20 14:51 Normodyne SLOW IVP 4 ml Q4H PRN Administration SBP > 160 use third Metoprolol Tartrate 50 mg 04/01/20 09:00 04/02/20 08:54 Lopressor PO 50 mg BID DIDIER Administration Polyethylene Glycol 17 gm 04/01/20 09:00 04/02/20 08:55 Miralax PO 17 gm DAILY DIDIER Administration Sodium Chloride 10 ml 04/01/20 04:32 04/01/20 19:28 Flush - Normal Saline IVF 10 ml PRN PRN Administration Saline Flush - Exam General Appearance: NAD Heart: RRR, no murmur Respiratory: CTAB, no wheezes, no rales, no ronchi Gastrointestinal: soft, non-tender, non-distended, normal bowel sounds Extremities: no cyanosis, no clubbing, no edema Psychiatric: normal affect Hosp A/P (1) Acute on chronic renal failure Code(s): N17.9 - ACUTE KIDNEY FAILURE, UNSPECIFIED; N18.9 - CHRONIC KIDNEY DISEASE, UNSPECIFIED Status: Acute Qualifiers: Chronic kidney disease stage: stage 4 (severe) (2) Pneumonia Code(s): J18.9 - PNEUMONIA, UNSPECIFIED ORGANISM Status: Acute Qualifiers: Laterality: bilateral Lung location: lower lobe of lung (3) Dyslipidemia Code(s): E78.5 - HYPERLIPIDEMIA, UNSPECIFIED Status: Chronic (4) History of stroke Code(s): Z86.73 - PRSNL HX OF TIA (TIA), AND CEREB INFRC W/O RESID DEFICITS Status: Chronic (5) Diabetes mellitus Code(s): E11.9 - TYPE 2 DIABETES MELLITUS WITHOUT COMPLICATIONS Status: Chronic Qualifiers: Diabetes mellitus type: type 2 Diabetes mellitus complication status: with kidney complications Diabetes mellitus complication detail: with chronic kidney disease Chronic kidney disease stage: stage 4 (severe) (6) HTN (hypertension) Code(s): I10 - ESSENTIAL (PRIMARY) HYPERTENSION Status: Chronic Qualifiers: Hypertension type: essential hypertension Qualified Code(s): I10 - Essential (primary) hypertension (7) Abdominal pain Code(s): R10.9 - UNSPECIFIED ABDOMINAL PAIN Status: Acute Qualifiers: Abdominal location: right upper quadrant Qualified Code(s): R10.11 - Right upper quadrant pain (8) Anemia Code(s): D64.9 - ANEMIA, UNSPECIFIED Status: Chronic Qualifiers: Anemia type: due to chronic kidney disease - Plan COVID rule out - sx are suspicious for this infection Acute on Chronic kidney disease - pt continues to appear volume depleted - appreciate Neprhology recs - increase NS to 100 ml/hr and monitor UOP - obtain renal US - advance diet to carb consistent/renal HTN - not optimally controlled - increase amlodipine and continue metoprolol Pneumonia - continue ABX - obtain COVID result DM - ISS for now, hold home meds Dyslipidemia - continue statin and zetia dvt prophy - heparin gi prophy - on famotidine code status full reviewed plan of care with patient, no qustions or further needs at end of eval pt remains at high risk in current condition
[2020-04-02] MEDS ORDERED: Nitroglycerin 0.4 MG TAB (25 Tab Bottle) SL PRN (12:41)
--- NOTE | 2020-04-02 12:44 | PDOC.EVN ---
Event Note - Event Note Event Note: Called by RN for pt c/o chest pain 05/15 that started after coughing. Current bp 170's systolic. Ordered nitroglycerin tabs, stat ecg and troponin x 3. Pt is on telemetry monitoring now. ECG reviewed - sinus rhythm, normal axis, normal UT and QRS intervals. QTc 488. T wave inversions in V3-V6. Will repeat ecg when pain free to evaluate for dynamic changes. With prolonged QT interval - d/c zofran and phenergan and use prn reglan instead. Troponin x 3 pending. RN reports resolution of chest pain with 1 dose of nitro SL Addendum at 14:24 - reviewed pain free ECG and essentially unchanged. Reviewed chart and pt has an aspirin allergy, is already on a beta-nette. Holding on formal cardiology consult due to high suspicion for COVID and test is pending. Informal discussion - will fully anti-coagulate with heparin gtt/ cardiac protocol due to risk of hypercoagulable state with COVID. Hold on plavix as pt has been c/o n/v/abd pain. Blood pressures are elevated - will add nitropaste and monitor bp's and patient's ability to tolerate medication. D/c azithromycin as well due to prolonged QT interval. Will continue Rocephin.
[2020-04-02 15:04] LABS: SARS-CoV-2 MS2 Positive; SARS-CoV-2 N Gene Positive; SARS-CoV-2 S Gene Positive; SARS-CoV-2 orf1ab Positive
[2020-04-02] MEDS ORDERED: Nitroglycerin 2% Ointment 1 INCH/1 GM Packet TOP SCH (15:15)
[2020-04-02 16:14] LABS: Hemoglobin 11.1 g/dL (14.0-18.0); Platelet Count 146 thou/uL (130-400)
--- NOTE | 2020-04-02 16:15 | PRG ---
DATE OF SERVICE: SUBJECTIVE: The patient is on COVID isolation. OBJECTIVE: VITAL SIGNS: Temperature 98.4, pulse 82, respiratory rate 18, blood pressure 182/90. LABORATORY DATA: Potassium 4.5, bicarb 20, BUN 54, creatinine is 7.1. ASSESSMENT AND PLAN: 1. Acute kidney injury on chronic kidney disease stage 3. Worsening labs with poor prognosis. He is COVID positive too. 2. COVID-19 infection. 3. Acidosis. 4. Edema. 5. History of hypertension. 6. Anemia of chronic disease. 7. No acute indication for dialysis, but if renal function continues to get worse, might need renal replacement therapy. No acute indication for dialysis today. Job ID: [id number]
[2020-04-02 16:30] LABS: Troponin I 0.227 ng/mL (< 0.028)
[2020-04-02] MEDS: hydrALAZINE 20 MG/ML VIAL SLOW IVP PRN (16:53)
[2020-04-02] MEDS: Heparin 25,000 units/D5W 500 ML IVPB SCH (16:54)
[2020-04-02] MEDS: Heparin 10,000 UNITS/ 10 ML VIAL SLOW IVP SCH (16:58)
[2020-04-02 18:47] LABS: Troponin I 0.197 ng/mL (< 0.028)
[2020-04-02] MEDS: Atorvastatin Calcium 40 MG TAB PO SCH (19:51)
[2020-04-02] MEDS: Nitroglycerin 2% Ointment 1 INCH/1 GM Packet TOP SCH (19:52)
[2020-04-02] MEDS: cloNIDine 0.1 MG TAB PO PRN (19:52)
[2020-04-02 23:03] LABS: PTT 201.6 sec (22.9-36.1)
[2020-04-03] MEDS: hydrALAZINE 20 MG/ML VIAL SLOW IVP PRN (00:18)
[2020-04-03 01:05] LABS: PTT 133.8 sec (22.9-36.1)
[2020-04-03] MEDS: cefTRIAXone\\ROCEPHIN 1 GM in Sodium Chloride 0.9% 100 ML IVPB SCH (01:31)
[2020-04-03 04:32] LABS: #Lymphocytes 0.8 thou/uL (1.20-3.40); #Monocytes 0.3 thou/uL (0.11-0.59); #Neutrophils 3.7 thou/uL (1.40-6.50); %Eosinophils 0.3 % (0.0-10.0); %Lymphocytes 16.2 % (21.0-51.0); %Monocytes 6.4 % (0.0-10.0); %Neutrophils 77.1 % (42.0-75.0); Hemoglobin 10.4 g/dL (14.0-18.0); Mean Corpuscular HGB CONC 31.9 g/dL (32.0-36.0); Mean Corpuscular Volume 84.4 fL (78.0-98.0); Mean Platelet Volume 7.9 fL (7.4-10.4); Platelet Count 165 thou/uL (130-400); RBC Distribution Width 12.9 % (11.5-14.5); Red Blood Cell (RBC) Count 3.84 mill/uL (4.70-6.10); White Blood Cell (WBC) Count 4.8 thou/uL (4.8-10.8)
[2020-04-03 04:48] LABS: Anion Gap 12 mmol/L (10-20); BUN (Urea Nitrogen) 55 mg/dL (8.4-25.7); Calc. Creatinine Clearance 13 mL/min (70-130); Calcium 6.8 mg/dL (7.8-10.44); Carbon Dioxide 19 mmol/L (23-31); Chloride 109 mmol/L (98-107); Estimated GFR-MDRD 9; Glucose 126 mg/dL (80-115); Potassium 4.1 mmol/L (3.5-5.1); Sodium 136 mmol/L (136-145)
[2020-04-03] MEDS: Nitroglycerin 2% Ointment 1 INCH/1 GM Packet TOP SCH ×2 (05:20→15:13)
[2020-04-03] MEDS: Sodium Chloride 0.9% 1,000 ML IV SCH (05:30)
[2020-04-03] MEDS: Ezetimibe 10 MG TAB PO SCH (08:54)
[2020-04-03] MEDS: Famotidine 20 MG TAB PO SCH (08:54)
[2020-04-03] MEDS: Metoprolol Tartrate 50 MG TAB PO SCH ×2 (08:54→19:31)
[2020-04-03] MEDS: Polyethylene Glycol 3350 17 GM Packet PO SCH (08:54)
[2020-04-03] MEDS ORDERED: Amlodipine 5 MG TAB PO SCH (09:00)
--- NOTE | 2020-04-03 14:00 | PRG ---
DATE OF SERVICE: 04/03/2020 SUBJECTIVE: A 64-year-old gentleman, being seen for acute kidney injury. The patient denied any nausea, vomiting, or chest pain. OBJECTIVE: GENERAL: The patient is awake and alert. VITAL SIGNS: Afebrile, pulse 84, breathing at 16, blood pressure 132/79. HEENT: Head normocephalic and atraumatic. Eyes intact, no ulcers. Nose intact, no ulcers. Ears intact, no ulcers. NECK: Supple. No JVD. CHEST: Symmetrical and clear. CARDIOVASCULAR: Shows S1 and S2, no rub, no murmur. GASTROINTESTINAL: Abdomen is soft, bowel sounds positive. EXTREMITIES: Show no edema or ulcers. SKIN: Shows no rash or petechiae. MUSCULOSKELETAL: Shows no joint swelling or stiffness. GENITOURINARY: Shows no Waterman or CVA tenderness. NEUROLOGIC: Motor intact. Cranial nerves intact. LABORATORY DATA: Labs showed hemoglobin 10.4. Creatinine 7.4. ASSESSMENT AND PLAN: 1. Chronic kidney disease, stage 5 with acute kidney injury. Plan dialysis. 2. Hypertension, stable. 3. Anemia, stable. 4. Medication based on GFR appropriate. COVID positive. Job ID: [id number]
[2020-04-03] MEDS ORDERED: Sodium Chloride 0.9% 1,000 ML IV SCH (14:53)
--- NOTE | 2020-04-03 14:55 | PDOC.HOSPP ---
- Subjective Encounter Date: 04/03/20 (f/u COVID pneumonia) Encounter Time: 14:53 Subjective: Pt today states he feels a little better. Denies any further chest pain. Denies SOB, n/.v/abd pain. Denies any other new sx. - Objective Vital Signs & Weight: Vital Signs (12 hours) Temp Pulse Resp BP Pulse Ox 04/03/20 12:00 97.5 F L 84 16 132/79 93 L 04/03/20 08:53 93 04/03/20 08:45 99.4 F 90 20 178/91 H 94 L 04/03/20 04:15 99.2 F 93 20 151/84 H 93 L Weight Admit Weight 199 lb 8 oz Weight 199 lb 8 oz I&O: 04/02/20 04/03/20 04/04/20 06:59 06:59 06:59 Intake Total 1170 3140 Output Total 350 950 Balance 820 2190 Result Diagrams: 04/03/20 03:53 04/03/20 03:53 Additional Labs: Accuchecks 04/02/20 04/02/20 04/02/20 20:02 16:21 11:42 POC Glucose 171 H 111 H 87 COVID positive EKG Reviewed by me: Yes (tele - sinus 70-100's) Hospitalist ROS - Medication Medications: Active Medications Generic Name Dose Route Start Last Admin Trade Name Freq PRN Reason Stop Dose Admin Acetaminophen 650 mg 04/01/20 04:29 04/02/20 18:25 Tylenol PO 650 mg Q4H PRN Administration Headache/Fever/Mild Pain (1-3) Hydrocodone Bitart/Acetaminophen 1 tab 04/01/20 04:30 04/01/20 08:32 [place] 5/325 PO 1 tab Q4H PRN Administration Moderate Pain (4-6) Amlodipine Besylate 10 mg 04/03/20 09:00 04/03/20 08:53 Norvasc PO 10 mg DAILY DIDIER Administration Atorvastatin Calcium 80 mg 04/01/20 21:00 04/02/20 19:51 Lipitor PO 80 mg HS DIDIER Administration Clonidine 0.1 mg 04/01/20 04:30 04/01/20 13:20 Catapres PO 0.1 mg BID PRN Administration SBP > 160 use second Ezetimibe 10 mg 04/02/20 09:00 04/03/20 08:54 Zetia PO 10 mg DAILY DIDIER Administration Famotidine 20 mg 04/01/20 09:00 04/03/20 08:54 Pepcid PO 20 mg QAM DIDIER Administration Heparin Sodium (Porcine) 0 units 04/02/20 15:00 04/02/20 16:58 Heparin 1,000 Units/Ml (10 Ml) SLOW IVP 4 ml ASDIR DIDIER Administration Protocol Hydralazine HCl 10 mg 04/01/20 04:30 04/03/20 00:18 Apresoline SLOW IVP 10 mg Q6H PRN Administration SBP GREATER THAN 160 Heparin Sodium/Dextrose 500 mls @ 0 mls/hr 04/02/20 15:00 04/02/20 16:54 Heparin 25,000 Units/D5w IVPB 500 mls INF DIDIER Administration Protocol Per Protocol Insulin Human Regular 0 units 04/01/20 04:32 04/01/20 11:38 Humulin R SC 2 unit .MILD SLIDING SCALE PRN Administration Mild Correctional Scale Labetalol HCl 20 mg 04/01/20 04:30 04/01/20 14:51 Normodyne SLOW IVP 4 ml Q4H PRN Administration SBP > 160 use third Metoprolol Tartrate 50 mg 04/01/20 09:00 04/03/20 08:54 Lopressor PO 50 mg BID DIDIER Administration Nitroglycerin 0.4 mg 04/02/20 12:41 04/02/20 13:11 Nitrostat SL 0.4 mg Q5MIN PRN Administration Chest Pain Polyethylene Glycol 17 gm 04/01/20 09:00 04/03/20 08:54 Miralax PO 17 gm DAILY DIDIER Administration Sodium Chloride 10 ml 04/01/20 04:32 04/03/20 08:54 Flush - Normal Saline IVF 10 ml PRN PRN Administration Saline Flush - Exam General Appearance: NAD Heart: RRR, no murmur Respiratory: no wheezes, no rales, no ronchi Respiratory - other findings: decreased breath sounds at the bases Gastrointestinal: soft, non-tender, non-distended, normal bowel sounds Extremities: no cyanosis, no clubbing, no edema Psychiatric: normal affect Hosp A/P (1) COVID-19 Code(s): U07.1 - COVID-19 Status: Acute (2) Acute on chronic renal failure Code(s): N17.9 - ACUTE KIDNEY FAILURE, UNSPECIFIED; N18.9 - CHRONIC KIDNEY DISEASE, UNSPECIFIED Status: Acute Qualifiers: Chronic kidney disease stage: stage 4 (severe) (3) Pneumonia Code(s): J18.9 - PNEUMONIA, UNSPECIFIED ORGANISM Status: Acute Qualifiers: Laterality: bilateral Lung location: lower lobe of lung (4) Dyslipidemia Code(s): E78.5 - HYPERLIPIDEMIA, UNSPECIFIED Status: Chronic (5) History of stroke Code(s): Z86.73 - PRSNL HX OF TIA (TIA), AND CEREB INFRC W/O RESID DEFICITS Status: Chronic (6) Diabetes mellitus Code(s): E11.9 - TYPE 2 DIABETES MELLITUS WITHOUT COMPLICATIONS Status: Chronic Qualifiers: Diabetes mellitus type: type 2 Diabetes mellitus complication status: with kidney complications Diabetes mellitus complication detail: with chronic kidney disease Chronic kidney disease stage: stage 4 (severe) (7) HTN (hypertension) Code(s): I10 - ESSENTIAL (PRIMARY) HYPERTENSION Status: Chronic Qualifiers: Hypertension type: essential hypertension Qualified Code(s): I10 - Essential (primary) hypertension (8) Abdominal pain Code(s): R10.9 - UNSPECIFIED ABDOMINAL PAIN Status: Acute Qualifiers: Abdominal location: right upper quadrant Qualified Code(s): R10.11 - Right upper quadrant pain (9) Anemia Code(s): D64.9 - ANEMIA, UNSPECIFIED Status: Chronic Qualifiers: Anemia type: due to chronic kidney disease (10) Chest pain Code(s): R07.9 - CHEST PAIN, UNSPECIFIED Status: Acute Qualifiers: Chest pain type: unspecified Qualified Code(s): R07.9 - Chest pain, unspecified (11) Prolonged QT interval Code(s): R94.31 - ABNORMAL ELECTROCARDIOGRAM [ECG] [EKG] Status: Acute - Plan COVID positive with pneumonia. - was on Rocephin/azithro - azithro d/c yesterday due to prolonged QT interval - plan for 5 days total of antibiotics - no indication for steroids Chest pain with indeterminant troponin - started on heparin gtt for cardiac protocol = pt may have hypercoagulable state with COVID Acute on Chronic kidney disease - improved volume status - appreciate Neprhology recs - lower NS rate to 50 ml/hr and monitor UOP - unable to obtain ultrasound at this time - no emergency situation requiring it HTN - change nitropaste to Imdur and monitor - if still elevated, will add hydralazine DM - ISS for now, hold home meds Dyslipidemia - continue statin and zetia Prolonged qt interval - avoid medications which can worsen this. Anti-emetic changed to reglan dvt prophy - heparin/cardiac protocol for concern of hypercoagulable state gi prophy - on famotidine code status full reviewed plan of care with patient, no qustions or further needs at end of eval pt remains at high risk in current condition
[2020-04-03] MEDS: Heparin 25,000 units/D5W 500 ML IVPB SCH (16:01)
[2020-04-03] MEDS: Atorvastatin Calcium 40 MG TAB PO SCH (19:31)
[2020-04-03] MEDS: cloNIDine 0.1 MG TAB PO PRN (19:31)
[2020-04-03] MEDS: hydrALAZINE 10 MG TAB PO SCH (20:23)
[2020-04-04 04:56] LABS: #Lymphocytes 1.1 thou/uL (1.20-3.40); #Monocytes 0.3 thou/uL (0.11-0.59); #Neutrophils 3.5 thou/uL (1.40-6.50); %Basophils 0.1 % (0.0-1.0); %Eosinophils 0.1 % (0.0-10.0); %Lymphocytes 21.5 % (21.0-51.0); %Monocytes 6.8 % (0.0-10.0); %Neutrophils 71.4 % (42.0-75.0); Hemoglobin 9.6 g/dL (14.0-18.0); Mean Corpuscular HGB CONC 32.8 g/dL (32.0-36.0); Mean Corpuscular Hemoglobin 27.6 pg (27.0-31.0); Mean Corpuscular Volume 84.3 fL (78.0-98.0); Mean Platelet Volume 7.7 fL (7.4-10.4); Platelet Count 168 thou/uL (130-400); RBC Distribution Width 12.8 % (11.5-14.5); Red Blood Cell (RBC) Count 3.48 mill/uL (4.70-6.10); White Blood Cell (WBC) Count 4.9 thou/uL (4.8-10.8)
[2020-04-04 05:18] LABS: Anion Gap 15 mmol/L (10-20); BUN (Urea Nitrogen) 61 mg/dL (8.4-25.7); Calc. Creatinine Clearance 13 mL/min (70-130); Carbon Dioxide 15 mmol/L (23-31); Chloride 107 mmol/L (98-107); Estimated GFR-MDRD 9; Glucose 117 mg/dL (80-115); Potassium 4.2 mmol/L (3.5-5.1); Sodium 133 mmol/L (136-145)
[2020-04-04] MEDS: hydrALAZINE 10 MG TAB PO SCH ×3 (09:33→22:13)
[2020-04-04] MEDS: Amlodipine 10 MG TAB PO SCH (09:33)
[2020-04-04] MEDS: Famotidine 20 MG TAB PO SCH (09:34)
[2020-04-04] MEDS: cefTRIAXone\\ROCEPHIN 1 GM in Sodium Chloride 0.9% 100 ML IVPB SCH (09:34)
[2020-04-04] MEDS: Ezetimibe 10 MG TAB PO SCH (09:34)
[2020-04-04] MEDS: Metoprolol Tartrate 50 MG TAB PO SCH ×2 (09:34→22:13)
[2020-04-04] MEDS: Polyethylene Glycol 3350 17 GM Packet PO SCH (09:35)
--- NOTE | 2020-04-04 09:40 | PDOC.HOSPP ---
- Subjective Encounter Date: 04/04/20 (f/u COVID pneumonia) Encounter Time: 09:37 Subjective: 64 y/o male with CKD admitted for worsening renal function, found to be COVID positive, and experienced chest pain with indeterminant troponins now on heparin gtt. Pt without complaints today - reports his energy feels a little better. He reports his urine output is low - maybe 1/2 urinal yesterday. He denies any sob /n/v/abd pain/cough. - Objective Vital Signs & Weight: Vital Signs (12 hours) Temp Pulse Resp BP BP Pulse Ox 04/04/20 03:18 99.6 F 82 20 139/77 93 L 04/03/20 23:50 99.8 F H 86 20 143/84 H 94 L Weight Admit Weight 199 lb 8 oz Weight 199 lb 8 oz I&O: 04/03/20 04/04/20 04/05/20 06:59 06:59 06:59 Intake Total 3140 2340 Output Total 950 1100 Balance 2190 1240 Result Diagrams: 04/04/20 15:18 04/04/20 04:33 Additional Labs: Accuchecks 04/03/20 04/03/20 04/03/20 21:04 16:16 12:08 POC Glucose 152 H 184 H 140 H 04/03/20 04/03/20 04/03/20 12:08 12:08 12:08 POC Glucose 140 H 140 H 140 H 04/03/20 12:08 POC Glucose 140 H EKG Reviewed by me: Yes (tele - sinus 80-90's) Hospitalist ROS - Medication Medications: Active Medications Generic Name Dose Route Start Last Admin Trade Name Freq PRN Reason Stop Dose Admin Acetaminophen 650 mg 04/01/20 04:29 04/02/20 18:25 Tylenol PO 650 mg Q4H PRN Administration Headache/Fever/Mild Pain (1-3) Hydrocodone Bitart/Acetaminophen 1 tab 04/01/20 04:30 04/01/20 08:32 [place] 5/325 PO 1 tab Q4H PRN Administration Moderate Pain (4-6) Amlodipine Besylate 10 mg 04/04/20 09:00 04/04/20 09:33 Norvasc PO 10 mg DAILY DIDIER Administration Atorvastatin Calcium 80 mg 04/01/20 21:00 04/03/20 19:31 Lipitor PO 80 mg HS DIDIER Administration Clonidine 0.1 mg 04/01/20 04:30 04/03/20 19:31 Catapres PO 0.1 mg BID PRN Administration SBP > 160 use second Ezetimibe 10 mg 04/02/20 09:00 04/04/20 09:34 Zetia PO 10 mg DAILY DIDIER Administration Famotidine 20 mg 04/01/20 09:00 04/04/20 09:34 Pepcid PO 20 mg QAM DIDIER Administration Heparin Sodium (Porcine) 0 units 04/02/20 15:00 04/02/20 16:58 Heparin 1,000 Units/Ml (10 Ml) SLOW IVP 4 ml ASDIR DIDIER Administration Protocol Hydralazine HCl 10 mg 04/01/20 04:30 04/03/20 00:18 Apresoline SLOW IVP 10 mg Q6H PRN Administration SBP GREATER THAN 160 Hydralazine HCl 10 mg 04/03/20 21:00 04/04/20 09:33 Apresoline PO 10 mg TID DIDIER Administration Heparin Sodium/Dextrose 500 mls @ 0 mls/hr 04/02/20 15:00 04/03/20 16:01 Heparin 25,000 Units/D5w IVPB 500 mls INF DIDIER Administration Protocol Per Protocol Ceftriaxone Sodium 1 gm/ 100 mls @ 200 mls/hr 04/04/20 09:00 04/04/20 09:34 Sodium Chloride IVPB 04/05/20 12:00 100 mls 0900 DIDIER Administration Sodium Chloride 1,000 mls @ 50 mls/hr 04/03/20 14:53 04/03/20 16:01 Normal Saline 0.9% IV 1,000 mls .Q20H DIDIER Administration Insulin Human Regular 0 units 04/01/20 04:32 04/01/20 11:38 Humulin R SC 2 unit .MILD SLIDING SCALE PRN Administration Mild Correctional Scale Isosorbide Mononitrate 30 mg 04/04/20 09:00 04/04/20 09:33 Imdur Er PO 30 mg DAILY DIDIER Administration Labetalol HCl 20 mg 04/01/20 04:30 04/01/20 14:51 Normodyne SLOW IVP 4 ml Q4H PRN Administration SBP > 160 use third Metoprolol Tartrate 50 mg 04/01/20 09:00 04/04/20 09:34 Lopressor PO 50 mg BID DIDIER Administration Nitroglycerin 0.4 mg 04/02/20 12:41 04/02/20 13:11 Nitrostat SL 0.4 mg Q5MIN PRN Administration Chest Pain Polyethylene Glycol 17 gm 04/01/20 09:00 04/04/20 09:35 Miralax PO 17 gm DAILY DIDIER Administration Sodium Chloride 10 ml 04/01/20 04:32 04/04/20 09:33 Flush - Normal Saline IVF 10 ml PRN PRN Administration Saline Flush - Exam General Appearance: NAD Heart: RRR, no murmur Respiratory: no wheezes, no rales, no ronchi Respiratory - other findings: decreased breath sounds at the bases Hosp A/P (1) COVID-19 Code(s): U07.1 - COVID-19 Status: Acute (2) Acute on chronic renal failure Code(s): N17.9 - ACUTE KIDNEY FAILURE, UNSPECIFIED; N18.9 - CHRONIC KIDNEY DISEASE, UNSPECIFIED Status: Acute Qualifiers: Chronic kidney disease stage: stage 4 (severe) (3) Pneumonia Code(s): J18.9 - PNEUMONIA, UNSPECIFIED ORGANISM Status: Acute Qualifiers: Laterality: bilateral Lung location: lower lobe of lung (4) Dyslipidemia Code(s): E78.5 - HYPERLIPIDEMIA, UNSPECIFIED Status: Chronic (5) History of stroke Code(s): Z86.73 - PRSNL HX OF TIA (TIA), AND CEREB INFRC W/O RESID DEFICITS Status: Chronic (6) Diabetes mellitus Code(s): E11.9 - TYPE 2 DIABETES MELLITUS WITHOUT COMPLICATIONS Status: Chronic Qualifiers: Diabetes mellitus type: type 2 Diabetes mellitus complication status: with kidney complications Diabetes mellitus complication detail: with chronic kidney disease Chronic kidney disease stage: stage 4 (severe) (7) HTN (hypertension) Code(s): I10 - ESSENTIAL (PRIMARY) HYPERTENSION Status: Chronic Qualifiers: Hypertension type: essential hypertension Qualified Code(s): I10 - Essential (primary) hypertension (8) Abdominal pain Code(s): R10.9 - UNSPECIFIED ABDOMINAL PAIN Status: Acute Qualifiers: Abdominal location: right upper quadrant Qualified Code(s): R10.11 - Right upper quadrant pain (9) Anemia Code(s): D64.9 - ANEMIA, UNSPECIFIED Status: Chronic Qualifiers: Anemia type: due to chronic kidney disease (10) Chest pain Code(s): R07.9 - CHEST PAIN, UNSPECIFIED Status: Acute Qualifiers: Chest pain type: unspecified Qualified Code(s): R07.9 - Chest pain, unspecified (11) Prolonged QT interval Code(s): R94.31 - ABNORMAL ELECTROCARDIOGRAM [ECG] [EKG] Status: Acute - Plan COVID positive with pneumonia - pt with minimal respiratory symptoms. - Azithro d/c due to Prolonged QT interval - Continue rocephin for 5 days total Chest pain with indeterminant troponin 2 days ago - continue heparin gtt for cardiac protocol = pt may have hypercoagulable state with COVID - echo and Cards consult on hold for now due to COVID status Acute on Chronic kidney disease - improved volume status - appreciate Neprhology recs - on NS rate to 50 ml/hr - will ask about adding bicarb to fluids as worsening metabolic acidosis today. HTN - improved with addition of Imdur and hydralazine - will continue to titrate DM - ISS for now, hold home meds Dyslipidemia - continue statin and zetia Prolonged qt interval - avoid medications which can worsen this. Reglan prn nausea. dvt prophy - heparin/cardiac protocol for concern of hypercoagulable state gi prophy - on famotidine code status full reviewed plan of care with patient, no qustions or further needs at end of eval pt remains at high risk in current condition
[2020-04-04] MEDS: Sodium Bicarbonate 150 MEQ in Dextrose 5% in Water 1,000 ML IV SCH (11:41)
[2020-04-04] MEDS: Insulin Regular 300 UNITS/3 ML VIAL SC PRN ×2 (11:55→16:37)
--- NOTE | 2020-04-04 13:47 | PRG ---
DATE OF SERVICE: 04/04/2020 SUBJECTIVE: A 64-year-old male, being seen for acute kidney injury. The patient denies any nausea, vomiting, or chest pain. OBJECTIVE: GENERAL: The patient is awake and alert. VITAL SIGNS: Afebrile, pulse 82, breathing at 16, blood pressure 139/77. HEENT: Head normocephalic and atraumatic. Eyes intact, no ulcers. Nose intact, no ulcers. Ears intact, no ulcers. NECK: Supple. No JVD. CHEST: Symmetrical and clear. CARDIOVASCULAR: Shows S1 and S2, no rub, no murmur. GASTROINTESTINAL: Abdomen is soft, bowel sounds positive. EXTREMITIES: Show no edema or ulcers. SKIN: Shows no rash or petechiae. MUSCULOSKELETAL: Shows no joint swelling or stiffness. GENITOURINARY: Shows no Waterman or CVA tenderness. NEUROLOGIC: Motor intact. Cranial nerves intact. LABORATORY DATA: Show hemoglobin 9.6. Creatinine 7.69. ASSESSMENT AND PLAN: 1. Acute kidney injury with chronic kidney disease, stage 5. No urgent indication for dialysis. 2. Hypertension, stable. 3. Anemia, stable. 4. Medication based on GFR, appropriate. We will follow the patient's renal function closely. Job ID: [id number]
[2020-04-04 15:33] LABS: Platelet Count 168 thou/uL (130-400)
[2020-04-04] MEDS: Atorvastatin Calcium 40 MG TAB PO SCH (22:12)
[2020-04-05] MEDS: Heparin 25,000 units/D5W 500 ML IVPB SCH (03:30)
[2020-04-05] MEDS: Metoclopramide HCl 10 MG/2 ML VIAL IVP PRN ×2 (03:31→15:49)
[2020-04-05 05:13] LABS: #Lymphocytes 0.8 thou/uL (1.20-3.40); #Monocytes 0.4 thou/uL (0.11-0.59); #Neutrophils 3.6 thou/uL (1.40-6.50); %Eosinophils 0.3 % (0.0-10.0); %Lymphocytes 16.9 % (21.0-51.0); %Monocytes 8.5 % (0.0-10.0); %Neutrophils 74.4 % (42.0-75.0); Hemoglobin 10.4 g/dL (14.0-18.0); Mean Corpuscular HGB CONC 31.8 g/dL (32.0-36.0); Mean Corpuscular Hemoglobin 26.6 pg (27.0-31.0); Mean Corpuscular Volume 83.5 fL (78.0-98.0); Mean Platelet Volume 7.7 fL (7.4-10.4); Platelet Count 201 thou/uL (130-400); RBC Distribution Width 12.8 % (11.5-14.5); Red Blood Cell (RBC) Count 3.92 mill/uL (4.70-6.10); White Blood Cell (WBC) Count 4.8 thou/uL (4.8-10.8)
[2020-04-05 05:29] LABS: Anion Gap 15 mmol/L (10-20); BUN (Urea Nitrogen) 64 mg/dL (8.4-25.7); Calc. Creatinine Clearance 13 mL/min (70-130); Calcium 7.2 mg/dL (7.8-10.44); Carbon Dioxide 18 mmol/L (23-31); Chloride 104 mmol/L (98-107); Estimated GFR-MDRD 9; Glucose 142 mg/dL (80-115); Potassium 3.9 mmol/L (3.5-5.1); Sodium 133 mmol/L (136-145)
[2020-04-05] MEDS: cefTRIAXone\\ROCEPHIN 1 GM in Sodium Chloride 0.9% 100 ML IVPB SCH (08:25)
[2020-04-05] MEDS: Metoprolol Tartrate 50 MG TAB PO SCH ×2 (08:26→21:12)
[2020-04-05] MEDS: hydrALAZINE 10 MG TAB PO SCH (08:26)
[2020-04-05] MEDS: Ezetimibe 10 MG TAB PO SCH (08:26)
[2020-04-05] MEDS: Polyethylene Glycol 3350 17 GM Packet PO SCH (08:26)
[2020-04-05] MEDS: Famotidine 20 MG TAB PO SCH (08:26)
[2020-04-05] MEDS: Amlodipine 10 MG TAB PO SCH (08:26)
--- NOTE | 2020-04-05 10:32 | PRG ---
DATE OF SERVICE: 04/05/2020 SUBJECTIVE: A 64-year-old gentleman, being seen for acute kidney injury. The patient denies any nausea, vomiting, or chest pain OBJECTIVE: GENERAL: The patient is awake and alert. VITAL SIGNS: Afebrile, pulse 93, breathing at 16, blood pressure 146/76. Urine output is 99 mL. HEENT: Head normocephalic and atraumatic. Eyes intact, no ulcers. Nose intact, no ulcers. Ears intact, no ulcers. NECK: Supple. No JVD. CHEST: Symmetrical and clear. CARDIOVASCULAR: Shows S1 and S2, no rub, no murmur. GASTROINTESTINAL: Abdomen is soft, bowel sounds positive. EXTREMITIES: Show no edema or ulcers. SKIN: Shows no rash or petechiae. MUSCULOSKELETAL: Shows no joint swelling or stiffness. GENITOURINARY: Shows no Waterman or CVA tenderness. NEUROLOGIC: Motor intact. Cranial nerves intact. LABORATORY DATA: Show hemoglobin 10.4. Creatinine 7.7. ASSESSMENT AND RECOMMENDATIONS: 1. Chronic kidney disease, stage 5, stable. 2. Acute kidney injury, nonoliguric, stable. 3. Metabolic acidosis, improved. 4. No indication for dialysis. Job ID: [id number]
[2020-04-05] MEDS: Sodium Bicarbonate 150 MEQ in Dextrose 5% in Water 1,000 ML IV SCH (10:41)
[2020-04-05] MEDS: Insulin Regular 300 UNITS/3 ML VIAL SC PRN ×2 (13:03→18:12)
--- NOTE | 2020-04-05 13:11 | PDOC.HOSPP ---
- Subjective Encounter Date: 04/05/20 (f/u covid pneumonia) Encounter Time: 13:08 Subjective: Pt was admitted for acute on chronic renal failure, found to be COVID positive. During this hospitalization, he experienced chest pain, had indeterminant troponins, and was placed on a heparin gtt. His renal function has slightly worsened, and he continues to produce urine. Nephrology following. Cardiology has not been consulted formally due to COVID. Pt is without complaints today. Nursing staff reports that he is coughing up thick secretions and gagging on it. Pt reports some n/v earlier that resolved. He denies any n/v/abd pain now. Denies any cp/sob. - Objective Vital Signs & Weight: Vital Signs (12 hours) Temp Pulse Resp BP BP Pulse Ox 04/05/20 10:56 98.3 F 73 18 143/85 H 92 L 04/05/20 08:26 93 L 04/05/20 07:10 98.7 F 83 17 146/76 H 93 L 04/05/20 04:00 98 F 88 18 175/92 H 92 L Weight Admit Weight 199 lb 8 oz Weight 199 lb 8 oz I&O: 04/04/20 04/05/20 04/06/20 06:59 06:59 06:59 Intake Total 2340 2327.5 Output Total 1100 1930 Balance 1240 397.5 Result Diagrams: 04/05/20 04:51 04/05/20 04:51 Additional Labs: Accuchecks 04/05/20 04/04/20 04/04/20 12:45 22:23 16:34 POC Glucose 199 H 138 H 216 H EKG Reviewed by me: Yes (tele - sinus 70-80's) Hospitalist ROS - Medication Medications: Active Medications Generic Name Dose Route Start Last Admin Trade Name Freq PRN Reason Stop Dose Admin Acetaminophen 650 mg 04/01/20 04:29 04/02/20 18:25 Tylenol PO 650 mg Q4H PRN Administration Headache/Fever/Mild Pain (1-3) Hydrocodone Bitart/Acetaminophen 1 tab 04/01/20 04:30 04/01/20 08:32 [place] 5/325 PO 1 tab Q4H PRN Administration Moderate Pain (4-6) Amlodipine Besylate 10 mg 04/04/20 09:00 04/05/20 08:26 Norvasc PO 10 mg DAILY DIDIER Administration Atorvastatin Calcium 80 mg 04/01/20 21:00 04/04/20 22:12 Lipitor PO 80 mg HS DIDIER Administration Clonidine 0.1 mg 04/01/20 04:30 04/03/20 19:31 Catapres PO 0.1 mg BID PRN Administration SBP > 160 use second Ezetimibe 10 mg 04/02/20 09:00 04/05/20 08:26 Zetia PO 10 mg DAILY DIDIER Administration Famotidine 20 mg 04/01/20 09:00 04/05/20 08:26 Pepcid PO 20 mg QAM DIDIER Administration Heparin Sodium (Porcine) 0 units 04/02/20 15:00 04/02/20 16:58 Heparin 1,000 Units/Ml (10 Ml) SLOW IVP 4 ml ASDIR DIDIER Administration Protocol Hydralazine HCl 10 mg 04/01/20 04:30 04/03/20 00:18 Apresoline SLOW IVP 10 mg Q6H PRN Administration SBP GREATER THAN 160 Hydralazine HCl 10 mg 04/03/20 21:00 04/05/20 08:26 Apresoline PO 10 mg TID DIDIER Administration Heparin Sodium/Dextrose 500 mls @ 0 mls/hr 04/02/20 15:00 04/05/20 03:30 Heparin 25,000 Units/D5w IVPB 500 mls INF DIDIER Administration Protocol Per Protocol Sodium Bicarbonate 150 meq/ 1,150 mls @ 50 mls/hr 04/04/20 10:00 04/05/20 10: 41 Dextrose/Water IV 1,150 mls .Q23H DIDIER Administration Insulin Human Regular 0 units 04/01/20 04:32 04/05/20 13:03 Humulin R SC 2 unit .MILD SLIDING SCALE PRN Administration Mild Correctional Scale Isosorbide Mononitrate 30 mg 04/04/20 09:00 04/05/20 08:26 Imdur Er PO 30 mg DAILY DIDIER Administration Labetalol HCl 20 mg 04/01/20 04:30 04/01/20 14:51 Normodyne SLOW IVP 4 ml Q4H PRN Administration SBP > 160 use third Metoclopramide HCl 10 mg 04/02/20 13:31 04/05/20 03:31 Reglan IVP 10 mg Q6H PRN Administration Nausea/Vomiting Metoprolol Tartrate 50 mg 04/01/20 09:00 04/05/20 08:26 Lopressor PO 50 mg BID DIDIER Administration Nitroglycerin 0.4 mg 04/02/20 12:41 04/02/20 13:11 Nitrostat SL 0.4 mg Q5MIN PRN Administration Chest Pain Polyethylene Glycol 17 gm 04/01/20 09:00 04/05/20 08:26 Miralax PO 17 gm DAILY DIDIER Administration Sodium Chloride 10 ml 04/01/20 04:32 04/05/20 08:27 Flush - Normal Saline IVF 10 ml PRN PRN Administration Saline Flush - Exam General Appearance: NAD Heart: RRR, no murmur Respiratory - other findings: decreased breath sounds at bases, no audible w/r/r Gastrointestinal: soft, non-tender, non-distended, normal bowel sounds Psychiatric: normal affect Hosp A/P (1) COVID-19 Code(s): U07.1 - COVID-19 Status: Acute (2) Acute on chronic renal failure Code(s): N17.9 - ACUTE KIDNEY FAILURE, UNSPECIFIED; N18.9 - CHRONIC KIDNEY DISEASE, UNSPECIFIED Status: Acute Qualifiers: Chronic kidney disease stage: stage 4 (severe) (3) Pneumonia Code(s): J18.9 - PNEUMONIA, UNSPECIFIED ORGANISM Status: Acute Qualifiers: Laterality: bilateral Lung location: lower lobe of lung (4) Dyslipidemia Code(s): E78.5 - HYPERLIPIDEMIA, UNSPECIFIED Status: Chronic (5) History of stroke Code(s): Z86.73 - PRSNL HX OF TIA (TIA), AND CEREB INFRC W/O RESID DEFICITS Status: Chronic (6) Diabetes mellitus Code(s): E11.9 - TYPE 2 DIABETES MELLITUS WITHOUT COMPLICATIONS Status: Chronic Qualifiers: Diabetes mellitus type: type 2 Diabetes mellitus complication status: with kidney complications Diabetes mellitus complication detail: with chronic kidney disease Chronic kidney disease stage: stage 4 (severe) (7) HTN (hypertension) Code(s): I10 - ESSENTIAL (PRIMARY) HYPERTENSION Status: Chronic Qualifiers: Hypertension type: essential hypertension Qualified Code(s): I10 - Essential (primary) hypertension (8) Abdominal pain Code(s): R10.9 - UNSPECIFIED ABDOMINAL PAIN Status: Acute Qualifiers: Abdominal location: right upper quadrant Qualified Code(s): R10.11 - Right upper quadrant pain (9) Anemia Code(s): D64.9 - ANEMIA, UNSPECIFIED Status: Chronic Qualifiers: Anemia type: due to chronic kidney disease (10) Chest pain Code(s): R07.9 - CHEST PAIN, UNSPECIFIED Status: Acute Qualifiers: Chest pain type: unspecified Qualified Code(s): R07.9 - Chest pain, unspecified (11) Prolonged QT interval Code(s): R94.31 - ABNORMAL ELECTROCARDIOGRAM [ECG] [EKG] Status: Acute - Plan COVID positive with pneumonia - pt with minimal respiratory symptoms. - Azithro d/c due to Prolonged QT interval - pt received 2 doses (04/01-04/02) - 5 days of Rocephin - completed today - add guafenisin for prn use Chest pain with indeterminant troponin now 3 days ago - continue heparin gtt for cardiac protocol = pt may have hypercoagulable state with COVID - echo and Cards consult on hold for now due to COVID status Acute on Chronic kidney disease - improved volume status - appreciate Nephrology recs - Fluids changed to D5 with 3 amps bicarb yesterday for metabolic acidosis, running at low rate. HTN - bp 140's systolic now - goal is around 130 systolic for both heart and kidneys. Will continue to adjust medications DM - ISS for now, hold home meds - pt has a device in his left arm. He states it was placed by his diabetes doctor and is to be on for a few weeks. I asked if we can remove it - he declines. Monitor for any changes in the skin. pt is uncertain of what this device is intended to do. Dyslipidemia - continue statin and zetia Prolonged qt interval - avoid medications which can worsen this. Reglan prn nausea. dvt prophy - heparin/cardiac protocol for concern of hypercoagulable state gi prophy - on famotidine code status full reviewed plan of care with patient, no qustions or further needs at end of eval pt remains at high risk in current condition Addendum- this evening, pt's nurse stated that when he is up and moving around, he vomits x 1. Noticed with PT, and getting up to the shower. Monitor this - uncertain etiology, and may be related to his heart. Will start a PPI. If this persists, may need evaluation or recommendations from GI vs Cardiology.
[2020-04-05] MEDS: Diabetic Tussin 200 MG/10 ML UDCUP PO PRN ×2 (15:28→21:11)
[2020-04-05] MEDS: hydrALAZINE 25 MG TAB PO SCH ×2 (15:28→21:11)
[2020-04-05] MEDS: Atorvastatin Calcium 40 MG TAB PO SCH (21:11)
[2020-04-06 05:16] LABS: #Monocytes 0.5 thou/uL (0.11-0.59); #Neutrophils 3.4 thou/uL (1.40-6.50); %Basophils 0.5 % (0.0-1.0); %Eosinophils 0.3 % (0.0-10.0); %Lymphocytes 19.7 % (21.0-51.0); %Monocytes 9.4 % (0.0-10.0); %Neutrophils 70.1 % (42.0-75.0); Hemoglobin 11.2 g/dL (14.0-18.0); Mean Corpuscular HGB CONC 32.6 g/dL (32.0-36.0); Mean Corpuscular Volume 82.8 fL (78.0-98.0); Mean Platelet Volume 7.3 fL (7.4-10.4); Platelet Count 242 thou/uL (130-400); RBC Distribution Width 12.9 % (11.5-14.5); Red Blood Cell (RBC) Count 4.13 mill/uL (4.70-6.10); White Blood Cell (WBC) Count 4.9 thou/uL (4.8-10.8)
[2020-04-06 05:42] LABS: Anion Gap 17 mmol/L (10-20); BUN (Urea Nitrogen) 63 mg/dL (8.4-25.7); Calc. Creatinine Clearance 13 mL/min (70-130); Calcium 7.2 mg/dL (7.8-10.44); Carbon Dioxide 19 mmol/L (23-31); Chloride 102 mmol/L (98-107); Estimated GFR-MDRD 8; Glucose 142 mg/dL (80-115); Potassium 3.5 mmol/L (3.5-5.1); Sodium 134 mmol/L (136-145)
[2020-04-06] MEDS: Polyethylene Glycol 3350 17 GM Packet PO SCH (07:59)
[2020-04-06] MEDS: Metoprolol Tartrate 50 MG TAB PO SCH ×2 (08:00→19:57)
[2020-04-06] MEDS: Amlodipine 10 MG TAB PO SCH (08:00)
[2020-04-06] MEDS: Ezetimibe 10 MG TAB PO SCH (08:00)
[2020-04-06] MEDS: hydrALAZINE 25 MG TAB PO SCH ×3 (08:00→19:57)
--- NOTE | 2020-04-06 08:21 | PDOC.HOSPP ---
- Subjective Encounter Date: 04/06/20 Encounter Time: 11:00 Subjective: Patient a bit nauseated. Able to eat some breakfast but spit up some mucus later. Lots of post nasal drip. Getting some medication right now. - Objective Vital Signs & Weight: Vital Signs (12 hours) Temp Pulse Resp BP BP BP Pulse Ox 04/06/20 04:38 98.6 F 87 18 153/78 H 95 04/05/20 23:53 98.3 F 83 16 150/88 H 95 04/05/20 21:21 98.3 F 88 16 157/95 H 92 L Weight Admit Weight 199 lb 8 oz Weight 208 lb 14.4 oz I&O: 04/05/20 04/06/20 04/07/20 06:59 06:59 06:59 Intake Total 2327.5 2014.5 Output Total 1930 600 Balance 397.5 1414.5 Result Diagrams: 04/06/20 04:59 04/06/20 04:59 Additional Labs: Accuchecks 04/05/20 04/05/20 04/05/20 21:21 16:05 12:45 POC Glucose 156 H 184 H 199 H Hospitalist ROS - Review of Systems Constitutional: denies: fever, chills Respiratory: denies: cough, shortness of breath Cardiovascular: denies: chest pain, palpitations Gastrointestinal: reports: nausea. denies: abdominal pain - Medication Medications: Active Medications Generic Name Dose Route Start Last Admin Trade Name Freq PRN Reason Stop Dose Admin Acetaminophen 650 mg 04/01/20 04:29 04/02/20 18:25 Tylenol PO 650 mg Q4H PRN Administration Headache/Fever/Mild Pain (1-3) Hydrocodone Bitart/Acetaminophen 1 tab 04/01/20 04:30 04/01/20 08:32 [place] 5/325 PO 1 tab Q4H PRN Administration Moderate Pain (4-6) Amlodipine Besylate 10 mg 04/04/20 09:00 04/06/20 08:00 Norvasc PO 10 mg DAILY DIDIER Administration Atorvastatin Calcium 80 mg 04/01/20 21:00 04/05/20 21:11 Lipitor PO 80 mg HS DIDIER Administration Clonidine 0.1 mg 04/01/20 04:30 04/03/20 19:31 Catapres PO 0.1 mg BID PRN Administration SBP > 160 use second Ezetimibe 10 mg 04/02/20 09:00 04/06/20 08:00 Zetia PO 10 mg DAILY DIDIER Administration Guaifenesin 200 mg 04/05/20 13:08 04/05/20 21:11 Robitussin Sf PO 200 mg Q4H PRN Administration Cough Heparin Sodium (Porcine) 0 units 04/02/20 15:00 04/02/20 16:58 Heparin 1,000 Units/Ml (10 Ml) SLOW IVP 4 ml ASDIR DIDIER Administration Protocol Hydralazine HCl 10 mg 04/01/20 04:30 04/03/20 00:18 Apresoline SLOW IVP 10 mg Q6H PRN Administration SBP GREATER THAN 160 Hydralazine HCl 25 mg 04/05/20 15:00 04/06/20 08:00 Apresoline PO 25 mg TID DIDIER Administration Heparin Sodium/Dextrose 500 mls @ 0 mls/hr 04/02/20 15:00 04/05/20 03:30 Heparin 25,000 Units/D5w IVPB 500 mls INF DIDIER Administration Protocol Per Protocol Sodium Bicarbonate 150 meq/ 1,150 mls @ 50 mls/hr 04/04/20 10:00 04/05/20 10: 41 Dextrose/Water IV 1,150 mls .Q23H DIDIER Administration Insulin Human Regular 0 units 04/01/20 04:32 04/05/20 18:12 Humulin R SC 2 unit .MILD SLIDING SCALE PRN Administration Mild Correctional Scale Isosorbide Mononitrate 30 mg 04/04/20 09:00 04/06/20 08:00 Imdur Er PO 30 mg DAILY DIDIER Administration Labetalol HCl 20 mg 04/01/20 04:30 04/01/20 14:51 Normodyne SLOW IVP 4 ml Q4H PRN Administration SBP > 160 use third Metoclopramide HCl 10 mg 04/02/20 13:31 04/05/20 15:49 Reglan IVP 10 mg Q6H PRN Administration Nausea/Vomiting Metoprolol Tartrate 50 mg 04/01/20 09:00 04/06/20 08:00 Lopressor PO 50 mg BID DIDIER Administration Nitroglycerin 0.4 mg 04/02/20 12:41 04/02/20 13:11 Nitrostat SL 0.4 mg Q5MIN PRN Administration Chest Pain Pantoprazole Sodium 40 mg 04/06/20 09:00 04/06/20 08:00 Protonix PO 40 mg DAILY DIDIER Administration Polyethylene Glycol 17 gm 04/01/20 09:00 04/06/20 07:59 Miralax PO 17 gm DAILY DIDIER Administration Sodium Chloride 10 ml 04/01/20 04:32 04/05/20 08:27 Flush - Normal Saline IVF 10 ml PRN PRN Administration Saline Flush - Exam General Appearance: NAD, awake alert ENT: moist mucosa Heart: RRR, no murmur, no gallops, no rubs Respiratory: CTAB, no wheezes, no rales, no ronchi Gastrointestinal: soft, non-tender, non-distended, normal bowel sounds Psychiatric: normal affect, normal behavior, A&O x 3 Hosp A/P (1) Pneumonia due to COVID-19 virus Code(s): U07.1 - COVID-19; J12.89 - OTHER VIRAL PNEUMONIA Status: Acute (2) Acute on chronic renal failure Code(s): N17.9 - ACUTE KIDNEY FAILURE, UNSPECIFIED; N18.9 - CHRONIC KIDNEY DISEASE, UNSPECIFIED Status: Acute Qualifiers: Chronic kidney disease stage: stage 4 (severe) (3) Abdominal pain Code(s): R10.9 - UNSPECIFIED ABDOMINAL PAIN Status: Acute Qualifiers: Abdominal location: right upper quadrant Qualified Code(s): R10.11 - Right upper quadrant pain (4) Chest pain Code(s): R07.9 - CHEST PAIN, UNSPECIFIED Status: Acute Qualifiers: Chest pain type: unspecified Qualified Code(s): R07.9 - Chest pain, unspecified (5) Prolonged QT interval Code(s): R94.31 - ABNORMAL ELECTROCARDIOGRAM [ECG] [EKG] Status: Acute (6) Dyslipidemia Code(s): E78.5 - HYPERLIPIDEMIA, UNSPECIFIED Status: Chronic (7) History of stroke Code(s): Z86.73 - PRSNL HX OF TIA (TIA), AND CEREB INFRC W/O RESID DEFICITS Status: Chronic (8) DM type 2 (diabetes mellitus, type 2) Status: Chronic (9) HTN (hypertension) Code(s): I10 - ESSENTIAL (PRIMARY) HYPERTENSION Status: Chronic Qualifiers: Hypertension type: essential hypertension Qualified Code(s): I10 - Essential (primary) hypertension - Plan COVID positive with pneumonia - pt with minimal respiratory symptoms. - Azithro d/c due to Prolonged QT interval - pt received 2 doses (04/01-04/02) - 5 days of Rocephin - completed - added guaifenesin for prn use Chest pain with indeterminant troponin now 4 days ago - continue heparin gtt for cardiac protocol = pt may have hypercoagulable state with COVID - echo and Cards consult on hold for now due to COVID status Acute on Chronic kidney disease - improved volume status - appreciate Nephrology recs - Fluids changed to D5 with 3 amps bicarb yesterday for metabolic acidosis, running at low rate. HTN - bp 150's systolic now - goal is around 130 systolic for both heart and kidneys. Will continue to adjust medications DM - ISS for now, hold home meds - pt has a device in his left arm. He states it was placed by his diabetes doctor and is to be on for a few weeks. I asked if we can remove it - he declines. Monitor for any changes in the skin. pt is uncertain of what this device is intended to do. Dyslipidemia - continue statin and zetia Prolonged qt interval - avoid medications which can worsen this. Reglan prn nausea. dvt prophy - heparin/cardiac protocol for concern of hypercoagulable state gi prophy - on famotidine code status full reviewed plan of care with patient, no qustions or further needs at end of eval pt remains at high risk in current condition
--- NOTE | 2020-04-06 10:55 | PRG ---
DATE OF SERVICE: 04/06/2020 SUBJECTIVE: A 64-year-old gentleman being seen for acute kidney injury. The patient denies any nausea, vomiting or chest pain. PHYSICAL EXAMINATION: General: The patient is awake and alert. Vital Signs: Afebrile, pulse 92, breathing at 16, blood pressure 122/67. HEENT: Head normocephalic and atraumatic. Eyes intact, no ulcers. Nose intact, no ulcers. Ears intact, no ulcers. Neck: Supple. No JVD. Chest: Symmetrical and clear. Cardiovascular: Shows S1 and S2, no rub, no murmur. Gastrointestinal: Abdomen is soft, bowel sounds positive. Extremities: Show no edema or ulcers. Skin: Shows no rash or petechiae. Musculoskeletal: Shows no joint swelling or stiffness. Genitourinary: Shows no Waterman or CVA tenderness. Neurologic: Motor intact. Cranial nerves intact. LABORATORY DATA: Labs reviewed. IMPRESSION: 1. Acute kidney injury with chronic kidney disease stage 5. The patient is nonoliguric. No indication for dialysis. 2. Hypertension, stable. 3. Anemia, stable. We will follow renal function closely and we will evaluate dialysis. Job ID: [id number]
[2020-04-06] MEDS: Metoclopramide HCl 10 MG/2 ML VIAL IVP PRN (11:35)
[2020-04-06] MEDS: Heparin 25,000 units/D5W 500 ML IVPB SCH (11:35)
[2020-04-06] MEDS: Sodium Bicarbonate 150 MEQ in Dextrose 5% in Water 1,000 ML IV SCH (11:35)
[2020-04-06] MEDS: Insulin Regular 300 UNITS/3 ML VIAL SC PRN ×2 (11:49→16:13)
[2020-04-06 13:01] LABS: 24 Hr Creatinine 670.88 mg/24 hr (950-2490); Creatinine, Urine 107.34 mg/dL (63-166)
[2020-04-06 14:53] LABS: Platelet Count 278 thou/uL (130-400)
[2020-04-06] MEDS: Diabetic Tussin 200 MG/10 ML UDCUP PO PRN (19:55)
[2020-04-06] MEDS: Atorvastatin Calcium 40 MG TAB PO SCH (19:57)
[2020-04-07] MEDS: Heparin 10,000 UNITS/ 10 ML VIAL SLOW IVP SCH (07:59)
[2020-04-07] MEDS: hydrALAZINE 25 MG TAB PO SCH ×3 (08:01→20:36)
[2020-04-07] MEDS: Ezetimibe 10 MG TAB PO SCH (08:01)
[2020-04-07] MEDS: Metoprolol Tartrate 50 MG TAB PO SCH ×2 (08:01→20:36)
[2020-04-07] MEDS: Amlodipine 10 MG TAB PO SCH (08:01)
[2020-04-07] MEDS: Polyethylene Glycol 3350 17 GM Packet PO SCH (08:02)
[2020-04-07 09:30] LABS: Anion Gap 19 mmol/L (10-20); BUN (Urea Nitrogen) 62 mg/dL (8.4-25.7); Calc. Creatinine Clearance 12 mL/min (70-130); Calcium 6.9 mg/dL (7.8-10.44); Carbon Dioxide 21 mmol/L (23-31); Chloride 98 mmol/L (98-107); Estimated GFR-MDRD 8; Glucose 171 mg/dL (80-115); Potassium 3.5 mmol/L (3.5-5.1); Sodium 134 mmol/L (136-145)
[2020-04-07] MEDS: Sodium Bicarbonate 150 MEQ in Dextrose 5% in Water 1,000 ML IV SCH (11:31)
[2020-04-07] MEDS: Metoclopramide HCl 10 MG/2 ML VIAL IVP PRN (11:35)
--- NOTE | 2020-04-07 11:42 | PRG ---
DATE OF SERVICE: 04/07/2020 SUBJECTIVE: A 64-year-old male, being seen for acute kidney injury. Denies nausea, vomiting, or chest pain. OBJECTIVE: GENERAL: The patient is awake and alert. VITAL SIGNS: Afebrile, pulse 99, breathing at 16, blood pressure 149/89. HEENT: Head normocephalic and atraumatic. Eyes intact, no ulcers. Nose intact, no ulcers. Ears intact, no ulcers. NECK: Supple. No JVD. CHEST: Symmetrical and clear. CARDIOVASCULAR: Shows S1 and S2, no rub, no murmur. GASTROINTESTINAL: Abdomen is soft, bowel sounds positive. EXTREMITIES: Show no edema or ulcers. SKIN: Shows no rash or petechiae. MUSCULOSKELETAL: Shows no joint swelling or stiffness. GENITOURINARY: Shows no Waterman or CVA tenderness. NEUROLOGIC: Motor intact. Cranial nerves intact. LABORATORY DATA: Show hemoglobin 11. Creatinine 8.5. ASSESSMENT AND RECOMMENDATIONS: 1. Acute kidney injury with chronic kidney disease, stage 5. Creatinine is worsening. The patient is nonoliguric. Continue gentle hydration. We will follow renal function closely. 2. Metabolic acidosis, stable. 3. Anemia, stable. 4. No urgent indication for dialysis, but if the patient becomes anuric, we will consider dialysis. Job ID: [id number]
--- NOTE | 2020-04-07 12:43 | PDOC.HOSPP ---
- Subjective Encounter Date: 04/07/20 Subjective: Patient seen and examined bedside this morning report feeling somewhat better denying any chest pain fever chills or vomiting no significant overnight events patient remains on heparin drip complaint of nonproductive cough - Objective Vital Signs & Weight: Vital Signs (12 hours) Temp Pulse Resp BP BP BP Pulse Ox 04/07/20 10:52 130/72 04/07/20 08:29 98.3 F 99 20 185/91 H 95 04/07/20 03:01 97.4 F L 94 17 149/89 H 95 Weight Admit Weight 199 lb 8 oz Weight 210 lb 11.2 oz I&O: 04/06/20 04/07/20 04/08/20 06:59 06:59 06:59 Intake Total 2014.5 3817.6 Output Total 600 240 Balance 1414.5 3577.6 Result Diagrams: 04/06/20 14:46 04/07/20 08:53 Additional Labs: Accuchecks 04/07/20 04/07/20 04/06/20 12:05 06:01 20:10 POC Glucose 198 H 147 H 195 H 04/06/20 16:15 POC Glucose 191 H Hospitalist ROS - Medication Medications: Active Medications Generic Name Dose Route Start Last Admin Trade Name Freq PRN Reason Stop Dose Admin Acetaminophen 650 mg 04/01/20 04:29 04/02/20 18:25 Tylenol PO 650 mg Q4H PRN Administration Headache/Fever/Mild Pain (1-3) Hydrocodone Bitart/Acetaminophen 1 tab 04/01/20 04:30 04/01/20 08:32 [place] 5/325 PO 1 tab Q4H PRN Administration Moderate Pain (4-6) Amlodipine Besylate 10 mg 04/04/20 09:00 04/07/20 08:01 Norvasc PO 10 mg DAILY DIDIER Administration Atorvastatin Calcium 80 mg 04/01/20 21:00 04/06/20 19:57 Lipitor PO 80 mg HS DIDIER Administration Clonidine 0.1 mg 04/01/20 04:30 04/03/20 19:31 Catapres PO 0.1 mg BID PRN Administration SBP > 160 use second Ezetimibe 10 mg 04/02/20 09:00 04/07/20 08:01 Zetia PO 10 mg DAILY DIDIER Administration Guaifenesin 200 mg 04/05/20 13:08 04/06/20 19:55 Robitussin Sf PO 200 mg Q4H PRN Administration Cough Heparin Sodium (Porcine) 0 units 04/02/20 15:00 04/07/20 07:59 Heparin 1,000 Units/Ml (10 Ml) SLOW IVP 2.7 ml ASDIR DIDIER Administration Protocol Hydralazine HCl 10 mg 04/01/20 04:30 04/03/20 00:18 Apresoline SLOW IVP 10 mg Q6H PRN Administration SBP GREATER THAN 160 Hydralazine HCl 50 mg 04/06/20 15:00 04/07/20 08:01 Apresoline PO 50 mg TID DIDIER Administration Heparin Sodium/Dextrose 500 mls @ 0 mls/hr 04/02/20 15:00 04/06/20 11:35 Heparin 25,000 Units/D5w IVPB 500 mls INF DIDIER Administration Protocol Per Protocol Sodium Bicarbonate 150 meq/ 1,150 mls @ 50 mls/hr 04/04/20 10:00 04/07/20 11: 31 Dextrose/Water IV 1,150 mls .Q23H DIDIER Administration Insulin Human Regular 0 units 04/01/20 04:32 04/06/20 16:13 Humulin R SC 2 unit .MILD SLIDING SCALE PRN Administration Mild Correctional Scale Isosorbide Mononitrate 30 mg 04/04/20 09:00 04/07/20 08:01 Imdur Er PO 30 mg DAILY DIDIER Administration Labetalol HCl 20 mg 04/01/20 04:30 04/01/20 14:51 Normodyne SLOW IVP 4 ml Q4H PRN Administration SBP > 160 use third Metoclopramide HCl 10 mg 04/02/20 13:31 04/07/20 11:35 Reglan IVP 10 mg Q6H PRN Administration Nausea/Vomiting Metoprolol Tartrate 50 mg 04/01/20 09:00 04/07/20 08:01 Lopressor PO 50 mg BID DIDIER Administration Nitroglycerin 0.4 mg 04/02/20 12:41 04/02/20 13:11 Nitrostat SL 0.4 mg Q5MIN PRN Administration Chest Pain Pantoprazole Sodium 40 mg 04/06/20 09:00 04/07/20 08:02 Protonix PO 40 mg DAILY DIDIER Administration Polyethylene Glycol 17 gm 04/01/20 09:00 04/07/20 08:02 Miralax PO 17 gm DAILY DIDIER Administration Sodium Chloride 10 ml 04/01/20 04:32 04/07/20 11:36 Flush - Normal Saline IVF 10 ml PRN PRN Administration Saline Flush - Exam General Appearance: NAD, awake alert Eye: PERRL, anicteric sclera ENT: normocephalic atraumatic, no oropharyngeal lesions Neck: supple Heart: RRR, no murmur Respiratory: no tachypnea, rhonchi Gastrointestinal: soft, non-tender Skin: normal turgor Psychiatric: normal affect Hosp A/P (1) COVID-19 Code(s): U07.1 - COVID-19 Status: Acute (2) Pneumonia Code(s): J18.9 - PNEUMONIA, UNSPECIFIED ORGANISM Status: Acute Qualifiers: Laterality: bilateral Lung location: lower lobe of lung (3) Pneumonia due to COVID-19 virus Code(s): U07.1 - COVID-19; J12.89 - OTHER VIRAL PNEUMONIA Status: Acute (4) Abdominal pain Code(s): R10.9 - UNSPECIFIED ABDOMINAL PAIN Status: Acute Qualifiers: Abdominal location: right upper quadrant Qualified Code(s): R10.11 - Right upper quadrant pain (5) CKD (chronic kidney disease) stage 2, GFR 60-89 ml/min Code(s): N18.2 - CHRONIC KIDNEY DISEASE, STAGE 2 (MILD) Status: Chronic (6) DM hyperosmolarity type II, uncontrolled Code(s): E11.00 - TYPE 2 DIAB W HYPROSM W/O NONKET HYPRGLY-HYPROS COMA ([facility]); E11.65 - TYPE 2 DIABETES MELLITUS WITH HYPERGLYCEMIA Status: Chronic - Plan COVID positive with pneumonia - pt with minimal respiratory symptoms. - Azithro d/c due to Prolonged QT interval - pt received 2 doses (04/01-04/02) - 5 days of Rocephin - completed - added guaifenesin for prn use -Patient currently saturating well on room air reporting some cough will encourage mobility Chest pain with indeterminant troponin now -Patient has been on heparin gtt for cardiac protocol received over 5 days of heparin will go ahead and discontinue today - echo and Cards consult on hold for now due to COVID status Continue with medical management for now -Continue with beta-nette statin and . Patient is allergic to aspirin Acute on Chronic kidney disease - improved volume status - appreciate Nephrology recs - Fluids changed to D5 with 3 amps bicarbfor metabolic acidosis, running at low rate. HTN - bp 150's systolic now - goal is around 130 systolic for both heart and kidneys. Will continue to adjust medications DM - ISS for now, hold home meds - pt has a device in his left arm. He states it was placed by his diabetes doctor and is to be on for a few weeks. I asked if we can remove it - he declines. Monitor for any changes in the skin. pt is uncertain of what this device is intended to do. Dyslipidemia - continue statin and zetia Prolonged qt interval - avoid medications which can worsen this. Reglan prn nausea. dvt prophy - heparin/cardiac protocol for concern of hypercoagulable state gi prophy - on famotidine code status full reviewed plan of care with patient, no qustions or further needs at end of eval pt remains at high risk in current condition We will continue to monitor for now
[2020-04-07 14:03] LABS: #Lymphocytes 0.8 thou/uL (1.20-3.40); #Monocytes 0.5 thou/uL (0.11-0.59); #Neutrophils 5.7 thou/uL (1.40-6.50); %Basophils 0.1 % (0.0-1.0); %Lymphocytes 11.7 % (21.0-51.0); %Monocytes 7.3 % (0.0-10.0); %Neutrophils 80.9 % (42.0-75.0); Hemoglobin 10.5 g/dL (14.0-18.0); Mean Corpuscular HGB CONC 33.4 g/dL (32.0-36.0); Mean Corpuscular Hemoglobin 27.5 pg (27.0-31.0); Mean Corpuscular Volume 82.4 fL (78.0-98.0); Mean Platelet Volume 7.3 fL (7.4-10.4); Platelet Count 307 thou/uL (130-400); RBC Distribution Width 12.8 % (11.5-14.5); Red Blood Cell (RBC) Count 3.81 mill/uL (4.70-6.10)
[2020-04-07 14:24] LABS: Anion Gap 18 mmol/L (10-20); BUN (Urea Nitrogen) 62 mg/dL (8.4-25.7); Calc. Creatinine Clearance 12 mL/min (70-130); Calcium 6.9 mg/dL (7.8-10.44); Carbon Dioxide 23 mmol/L (23-31); Chloride 97 mmol/L (98-107); Estimated GFR-MDRD 8; Glucose 206 mg/dL (80-115); Potassium 3.7 mmol/L (3.5-5.1); Sodium 134 mmol/L (136-145)
[2020-04-07] MEDS: Heparin 5,000 UNITS/ML VIAL SC SCH ×2 (15:17→20:37)
[2020-04-07] MEDS: Atorvastatin Calcium 40 MG TAB PO SCH (20:36)
[2020-04-07] MEDS: Diabetic Tussin 200 MG/10 ML UDCUP PO PRN (20:37)
[2020-04-08] MEDS: Heparin 5,000 UNITS/ML VIAL SC SCH ×3 (07:56→20:09)
[2020-04-08] MEDS: hydrALAZINE 25 MG TAB PO SCH ×3 (07:56→20:09)
[2020-04-08] MEDS: Ezetimibe 10 MG TAB PO SCH (07:56)
[2020-04-08] MEDS: Amlodipine 10 MG TAB PO SCH (07:57)
[2020-04-08] MEDS: Polyethylene Glycol 3350 17 GM Packet PO SCH (07:57)
[2020-04-08] MEDS: Metoprolol Tartrate 50 MG TAB PO SCH ×2 (07:57→20:09)
[2020-04-08] MEDS: Metoclopramide HCl 10 MG/2 ML VIAL IVP PRN ×2 (08:22→16:24)
[2020-04-08 10:47] LABS: Anion Gap 20 mmol/L (10-20); BUN (Urea Nitrogen) 65 mg/dL (8.4-25.7); Calc. Creatinine Clearance 11 mL/min (70-130); Calcium 7.1 mg/dL (7.8-10.44); Carbon Dioxide 22 mmol/L (23-31); Chloride 96 mmol/L (98-107); Estimated GFR-MDRD 7; Glucose 193 mg/dL (80-115); Potassium 3.4 mmol/L (3.5-5.1); Sodium 135 mmol/L (136-145)
[2020-04-08 10:54] LABS: Band 1 % (5-11); Hemoglobin 10.5 g/dL (14.0-18.0); Lymphocytes 24 % (21-51); MDiff Complete? YES; Mean Corpuscular HGB CONC 33.2 g/dL (32.0-36.0); Mean Corpuscular Hemoglobin 27.5 pg (27.0-31.0); Mean Corpuscular Volume 82.9 fL (78.0-98.0); Mean Platelet Volume 7.3 fL (7.4-10.4); Metamyelocyte 1 % (0-0); Monocytes 4 % (0-10); Neutrophil 70 % (42-75); Platelet Count 349 thou/uL (130-400); RBC Distribution Width 12.9 % (11.5-14.5); Red Blood Cell (RBC) Count 3.81 mill/uL (4.70-6.10); White Blood Cell (WBC) Count 7.3 thou/uL (4.8-10.8)
[2020-04-08] MEDS ORDERED: Potassium Chloride 10 MEQ TAB PO SCH (11:00)
[2020-04-08] MEDS ORDERED: Heparin 10,000 UNITS/ 10 ML VIAL ONE (11:13)
--- NOTE | 2020-04-08 12:48 | PRG ---
DATE OF SERVICE: 04/08/2020 SUBJECTIVE: A 64-year-old gentleman, being seen for acute kidney injury with rising creatinine and increasing edema. The patient has dyspnea on exertion. PHYSICAL EXAMINATION: General: The patient is awake. Vital Signs: Afebrile, pulse 93, breathing at 16, blood pressure 143/70. HEENT: Head normocephalic and atraumatic. Eyes intact, no ulcers. Nose intact, no ulcers. Ears intact, no ulcers. Neck: Supple. No JVD. Chest: Symmetrical and clear. Cardiovascular: Shows S1 and S2, no rub, no murmur. Gastrointestinal: Abdomen is soft, bowel sounds positive. Extremities: The patient has 2+ edema. Skin: Shows no rash or petechiae. Musculoskeletal: Shows no joint swelling or stiffness. Genitourinary: Shows no Waterman or CVA tenderness. Neurologic: Motor intact. Cranial nerves intact. LABORATORY DATA: Show hemoglobin 10.5. Potassium 3.4, creatinine 9.74. IMPRESSION: 1. Chronic kidney disease, stage 5 with progressive uremia. Plan dialysis. 2. Edema, plan dialysis. 3. Anemia, stable. 4. Hypokalemia, we will use a 4K bath. Risks versus benefits of dialysis were discussed. Surgical consult will be placed for temporary dialysis catheter placement. Job ID: [id number]
[2020-04-08 14:26] LABS: Hemoglobin 10.3 g/dL (14.0-18.0); Platelet Count 332 thou/uL (130-400)
[2020-04-08 15:06] LABS: HBSAg Index 0.18 S/CO (0-0.99); Hep B Surf Ag Non-Reactive S/CO (NonReactive)
--- NOTE | 2020-04-08 17:00 | PDOC.HOSPP ---
- Subjective Encounter Date: 04/08/20 Encounter Time: 14:00 Subjective: The patient is sitting up in bed with no real complaints. Appears drowsy. No significant cough. Per nursing staff he is eating some. He get dialysis catheter this morning and there is plan for dialysis today - Objective Vital Signs & Weight: Vital Signs (12 hours) Temp Pulse Resp BP BP Pulse Ox 04/08/20 11:10 97.5 F L 77 22 H 138/75 97 04/08/20 08:10 98.6 F 93 22 H 148/66 H 92 L Weight Admit Weight 199 lb 8 oz Weight 210 lb 8 oz I&O: 04/07/20 04/08/20 04/09/20 06:59 06:59 06:59 Intake Total 3817.6 1747 Output Total 240 150 Balance 3577.6 1597 Result Diagrams: 04/08/20 14:09 04/08/20 10:13 Additional Labs: Accuchecks 04/08/20 04/08/20 04/07/20 16:40 04:20 20:50 POC Glucose 218 H 158 H 174 H Hospitalist ROS - Review of Systems Constitutional: denies: fever, chills - Medication Medications: Active Medications Generic Name Dose Route Start Last Admin Trade Name Freq PRN Reason Stop Dose Admin Acetaminophen 650 mg 04/01/20 04:29 04/02/20 18:25 Tylenol PO 650 mg Q4H PRN Administration Headache/Fever/Mild Pain (1-3) Hydrocodone Bitart/Acetaminophen 1 tab 04/01/20 04:30 04/01/20 08:32 [place] 5/325 PO 1 tab Q4H PRN Administration Moderate Pain (4-6) Amlodipine Besylate 10 mg 04/04/20 09:00 04/08/20 07:57 Norvasc PO 10 mg DAILY DIDIER Administration Atorvastatin Calcium 80 mg 04/01/20 21:00 04/07/20 20:36 Lipitor PO 80 mg HS DIDIER Administration Clonidine 0.1 mg 04/01/20 04:30 04/03/20 19:31 Catapres PO 0.1 mg BID PRN Administration SBP > 160 use second Ezetimibe 10 mg 04/02/20 09:00 04/08/20 07:56 Zetia PO 10 mg DAILY DIDIER Administration Guaifenesin 200 mg 04/05/20 13:08 04/07/20 20:37 Robitussin Sf PO 200 mg Q4H PRN Administration Cough Heparin Sodium (Porcine) 5,000 units 04/07/20 15:00 04/08/20 16:24 Heparin SC 5,000 units TID DIDIER Administration Hydralazine HCl 10 mg 04/01/20 04:30 04/03/20 00:18 Apresoline SLOW IVP 10 mg Q6H PRN Administration SBP GREATER THAN 160 Hydralazine HCl 50 mg 04/06/20 15:00 04/08/20 16:24 Apresoline PO 50 mg TID DIDIER Administration Sodium Bicarbonate 150 meq/ 1,150 mls @ 50 mls/hr 04/04/20 10:00 04/07/20 11: 31 Dextrose/Water IV 1,150 mls .Q23H DIDIER Administration Insulin Human Regular 0 units 04/01/20 04:32 04/06/20 16:13 Humulin R SC 2 unit .MILD SLIDING SCALE PRN Administration Mild Correctional Scale Isosorbide Mononitrate 30 mg 04/04/20 09:00 04/08/20 07:56 Imdur Er PO 30 mg DAILY [facility] Administration Labetalol HCl 20 mg 04/01/20 04:30 04/01/20 14:51 Normodyne SLOW IVP 4 ml Q4H PRN Administration SBP > 160 use third Metoclopramide HCl 10 mg 04/02/20 13:31 04/08/20 16:24 Reglan IVP 10 mg Q6H PRN Administration Nausea/Vomiting Metoprolol Tartrate 50 mg 04/01/20 09:00 04/08/20 07:57 Lopressor PO 50 mg BID DIDIER Administration Nitroglycerin 0.4 mg 04/02/20 12:41 04/02/20 13:11 Nitrostat SL 0.4 mg Q5MIN PRN Administration Chest Pain Pantoprazole Sodium 40 mg 04/06/20 09:00 04/08/20 07:56 Protonix PO 40 mg DAILY DIDIER Administration Polyethylene Glycol 17 gm 04/01/20 09:00 04/08/20 07:57 Miralax PO Not Given DAILY DIDIER Sodium Chloride 10 ml 04/01/20 04:32 04/07/20 11:36 Flush - Normal Saline IVF 10 ml PRN PRN Administration Saline Flush - Exam General Appearance: NAD General - other findings: intermittently drowsy Eye: PERRL, anicteric sclera ENT: normocephalic atraumatic, no oropharyngeal lesions Neck: no JVD Heart: RRR, no murmur, no gallops, no rubs, normal peripheral pulses Respiratory: CTAB, no wheezes, no ronchi Respiratory - other findings: mild rales Gastrointestinal: soft, non-tender, non-distended, normal bowel sounds Extremities: no cyanosis, no clubbing, no edema Skin: normal turgor, no lesions, no rashes Neurological: cranial nerve grossly intact, normal sensation to touch, no focal deficits, no new deficit Musculoskeletal: normal tone, normal strength, no muscle wasting Psychiatric: normal affect, normal behavior, A&O x 3 Hosp A/P - Plan This is 64 year old male with past medical history of CKD, hypertension, diabetes presenting with COVID pneumonia COVID positive with pneumonia - - Azithro d/c due to Prolonged QT interval - pt received 2 doses (04/01-04/02) - s/p 5 days of Rocephin Chest pain with indeterminant troponin - s/p heparin drip for five days Acute on Chronic kidney disease - improved volume status - will discontinue D5 with sodium bicarbonate - plan for dialysis today HTN - controlled - continue metoprolol, hydralazine, amlodipine DM - continue insulin sliding scale Dyslipidemia - continue statin and zetia Prolonged qt interval - avoid medications which can worsen this. Reglan prn nausea. Dispo: plan to start dialysis today
[2020-04-08] MEDS: Sodium Bicarbonate 150 MEQ in Dextrose 5% in Water 1,000 ML IV SCH (19:17)
--- NOTE | 2020-04-08 20:02 | OP ---
DATE OF PROCEDURE: 04/08/2020 PREOPERATIVE DIAGNOSIS: Acute renal failure. POSTOPERATIVE DIAGNOSES: Acute renal failure. PROCEDURE PERFORMED: 1. Placement of left femoral Trialysis catheter for hemodialysis. INDICATION FOR PROCEDURE: A 64-year-old man with acute renal failure requiring dialysis. I was asked to place a temporary dialysis catheter to facilitate emergent dialysis. DESCRIPTION OF PROCEDURE: Informed consent was obtained from the patient's family. The patient is placed in supine position. Right groin was sterilely prepped and draped in usual fashion. Right femoral artery palpated and the skin medial to this was anesthetized one 1 % lidocaine. An 18-gauge introducer needle was inserted into the right femoral vein, returning dark venous blood. A guidewire was passed through the needle and was able to advance only half way prior to meeting resistance. Attempt to manipulate the guidewire was unsuccessful. This area was abandoned. Next, I turned my attention to the left groin which was sterilely prepped and draped in usual fashion. Using a different set, the left femoral artery was palpated and the skin medial to this was anesthetized with 1% lidocaine. The introducer needle was inserted through the left femoral vein, returning dark venous blood. Guidewire was passed through the needle and advanced into the left femoral vein without resistance. Needle was withdrawn over the guidewire. A stab incision was made adjacent to the guidewire using 11 scalpel. A dilator was passed over the guidewire dilating the subcutaneous tissues. Dilator was removed and a triple-lumen Trialysis catheter was advanced over the guidewire and placed in the left femoral vein without resistance down to the hub. Guidewire was removed. Dark venous blood aspirated from all three ports which were individually flushed with saline followed by heparin. Catheter was secured to the left groin using 3-0 nylon suture at two points. Sterile dressings were applied. The patient tolerated the procedures without any apparent complication and remains hemodynamically stable following completion of the procedure. Job ID: [id number] [facility]
[2020-04-08] MEDS: Atorvastatin Calcium 40 MG TAB PO SCH (20:09)
[2020-04-09 00:59] LABS: Actual Bicarbonate (HCO3a) 20.4 mEq/L (22-28); Base Excess (BEa) -3.1 mEq/L (-2.0 to +3.0); CO2 Tension 31.2 mmHg (35.0-45.0); Calcium, Ionized (arterial) 0.92 mmol/L (1.12-1.30); Carboxyhemoglobin (COHb) 0.3 gm% (0.0-3.0); Hemoglobin (Hb) 9.7 g/dL (14.0-18.0); O2 Tension (PaO2), arterial 81.3 mmHg (> 80.0); Potassium - ABG Lab 4.07 mmol/L (3.70-5.30); pH, Arterial 7.43 (7.35-7.45)
[2020-04-09 01:06] LABS: #Lymphocytes 0.7 thou/uL (1.20-3.40); #Monocytes 0.7 thou/uL (0.11-0.59); #Neutrophils 9.2 thou/uL (1.40-6.50); %Basophils 0.1 % (0.0-1.0); %Eosinophils 0.1 % (0.0-10.0); %Lymphocytes 6.5 % (21.0-51.0); %Monocytes 6.4 % (0.0-10.0); Hemoglobin 9.5 g/dL (14.0-18.0); Mean Corpuscular HGB CONC 33.1 g/dL (32.0-36.0); Mean Corpuscular Hemoglobin 27.5 pg (27.0-31.0); Mean Corpuscular Volume 83.1 fL (78.0-98.0); Mean Platelet Volume 6.9 fL (7.4-10.4); Platelet Count 272 thou/uL (130-400); RBC Distribution Width 12.9 % (11.5-14.5); Red Blood Cell (RBC) Count 3.47 mill/uL (4.70-6.10); White Blood Cell (WBC) Count 10.5 thou/uL (4.8-10.8)
[2020-04-09 01:09] LABS: Puncture Site R RADIAL
[2020-04-09 01:23] LABS: Anion Gap 22 mmol/L (10-20); BUN (Urea Nitrogen) 54 mg/dL (8.4-25.7); Calc. Creatinine Clearance 12 mL/min (70-130); Calcium 7.1 mg/dL (7.8-10.44); Carbon Dioxide 22 mmol/L (23-31); Chloride 96 mmol/L (98-107); Estimated GFR-MDRD 7; Glucose 186 mg/dL (80-115); Potassium 4.2 mmol/L (3.5-5.1); Sodium 136 mmol/L (136-145)
[2020-04-09 01:28] LABS: Troponin I 0.055 ng/mL (< 0.028)
[2020-04-09] MEDS ORDERED: Clopidogrel Bisulfate 75 MG TAB PO SCH ×2 (02:15→21:00)
--- NOTE | 2020-04-09 02:18 | PDOC.EVN ---
Event Note - Event Note Event Note: called by RN re: patient is more lethargic then what is reflected in the notes during the day. I presented to the bedside and examined the patient, he is moving all his 4 extremities with no apparent focal deficit, he does have a slight right facial droop when he tries to smile. He is slow to response and not engaging in conversation, he is not verbalizing any complaints, he went back to sleep after returning form CAT scan. His labs were unrevealing, his CT head showed no acute findings. I plan to give one dose of Plavix ( since he is allergic to ASA ) I also plan to do an MRI brain without contrast and further management as per results and clinical progression.
[2020-04-09] MEDS: Heparin 5,000 UNITS/ML VIAL SC SCH ×3 (09:51→20:07)
[2020-04-09] MEDS: Amlodipine 10 MG TAB PO SCH ×2 (10:35→13:06)
[2020-04-09] MEDS: Ezetimibe 10 MG TAB PO SCH (10:35)
[2020-04-09] MEDS: hydrALAZINE 25 MG TAB PO SCH ×4 (10:35→20:16)
[2020-04-09] MEDS: Polyethylene Glycol 3350 17 GM Packet PO SCH (10:36)
[2020-04-09] MEDS: Metoprolol Tartrate 50 MG TAB PO SCH ×3 (10:36→20:16)
--- NOTE | 2020-04-09 11:03 | CT ---
PRELIMINARY REPORT/DIRECT RADIOLOGY/EMERGENCY AFTER HOURS PROCEDURE EXAM: CT Head Without Intravenous Contrast. CLINICAL HISTORY: RIGHT SIDE FACIAL DROOP TECHNIQUE: Axial computed tomography images of the head/brain without intravenous contrast. COMPARISON: CT\SR - CT BRAIN WO CON - 09/16/2018 07:02 PM [employer] FINDINGS: BRAIN: No acute intraparenchymal hemorrhage. No mass lesion. No CT evidence for acute territorial inf arct. No midline shift or extra-axial collection. There is mild global parenchymal atrophy. There is deep white matter areas of hypodensity, some of which are confluent, likely representing sequela of microvascular ischemic disease. VENTRICLES: No hydrocephalus. ORBITS: The orbits are unremarkable. SINUSES AND MASTOIDS: The paranasal sinuses and mastoid air cells are clear. SOFT TISSUES: No significant facial or scalp soft tissue swelling evident. No radiopaque foreign body is seen. BONES: No acute skull fracture. IMPRESSION: No acute intracranial hemorrhage. Multiple areas of new confluent deep white matter hypod ensity compared back to September 2018. These are most consistent with areas of microvascular ischemic disease. If there is concern for an acute stroke, recommend a CT head and neck angiogram. ELECTRONICALLY SIGNED BY: Joe Ardon MD Apr 09, 2020 12:39:18 AM CDT FINAL REPORT EMERGENT AFTER HOURS CT BRAIN: IMPRESSION: Agree with the preliminary interpretation. There is no evidence for intracranial hemorrhage or mass effect. Extensive chronic microvascular ischemic changes are demonstrated, similar to 09/16/2018. POS: ANTONIA
--- NOTE | 2020-04-09 11:22 | PRG ---
DATE OF SERVICE: 04/09/2020 SUBJECTIVE: A 64-year-old gentleman, being seen for acute kidney injury, dialysis dependent. The patient had dialysis yesterday. PHYSICAL EXAMINATION: General: The patient is awake and alert. Vital Signs: Afebrile, pulse 90, breathing at 16, blood pressure 144/78. HEENT: Head normocephalic and atraumatic. Eyes intact, no ulcers. Nose intact, no ulcers. Ears intact, no ulcers. Neck: Supple. No JVD. Chest: Symmetrical and clear. Cardiovascular: Shows S1 and S2, no rub, no murmur. Gastrointestinal: Abdomen is soft, bowel sounds positive. Extremities: Show no edema or ulcers. Skin: Shows no rash or petechiae. Musculoskeletal: Shows no joint swelling or stiffness. Genitourinary: Shows no Waterman or CVA tenderness. Neurologic: Motor intact. Cranial nerves intact. LABORATORY DATA: Showed hemoglobin 9.5. Creatinine is 8.8, potassium is 4.4. ASSESSMENT AND PLAN: 1. Chronic kidney disease, stage 5 with acute kidney injury. Plan dialysis. 2. Hypertension, stable. 3. Anemia, stable. Medication based on GFR appropriate. Job ID: [id number]
--- NOTE | 2020-04-09 15:21 | PDOC.HOSPP ---
- Subjective Encounter Date: 04/09/20 Encounter Time: 13:00 Subjective: The patient was noted to be alert today. Speech therapy was in at the time and he was swallowing different textures. Patient denies significant SOB, chest pain or cough . Per nursing staff, he pulled out his trialysis catheter this morning and it had to be replaced - Objective Vital Signs & Weight: Vital Signs (12 hours) Temp Pulse Resp BP BP Pulse Ox 04/09/20 12:50 98.4 F 101 H 22 H 145/82 H 95 04/09/20 08:00 98.5 F 101 H 25 H 158/77 H 95 Weight Admit Weight 199 lb 8 oz Weight 209 lb 14.081 oz I&O: 04/08/20 04/09/20 04/10/20 06:59 06:59 06:59 Intake Total 1747 320 Output Total 150 Balance 1597 320 Result Diagrams: 04/09/20 00:54 04/09/20 00:54 Additional Labs: Accuchecks 04/09/20 04/09/20 04/08/20 10:06 06:26 23:30 POC Glucose 169 H 184 H 178 H 04/08/20 04/08/20 20:17 16:40 POC Glucose 162 H 218 H Hospitalist ROS - Review of Systems Constitutional: denies: fever, chills - Medication Medications: Active Medications Generic Name Dose Route Start Last Admin Trade Name Freq PRN Reason Stop Dose Admin Acetaminophen 650 mg 04/01/20 04:29 04/02/20 18:25 Tylenol PO 650 mg Q4H PRN Administration Headache/Fever/Mild Pain (1-3) Hydrocodone Bitart/Acetaminophen 1 tab 04/01/20 04:30 04/01/20 08:32 [place] 5/325 PO 1 tab Q4H PRN Administration Moderate Pain (4-6) Amlodipine Besylate 10 mg 04/04/20 09:00 04/09/20 13:06 Norvasc PO 10 mg DAILY DIDIER Administration Atorvastatin Calcium 80 mg 04/01/20 21:00 04/08/20 20:09 Lipitor PO Not Given HS DIDIER Clonidine 0.1 mg 04/01/20 04:30 04/03/20 19:31 Catapres PO 0.1 mg BID PRN Administration SBP > 160 use second Ezetimibe 10 mg 04/02/20 09:00 04/09/20 10:35 Zetia PO Not Given DAILY [facility] Guaifenesin 200 mg 04/05/20 13:08 04/07/20 20:37 Robitussin Sf PO 200 mg Q4H PRN Administration Cough Heparin Sodium (Porcine) 5,000 units 04/07/20 15:00 04/09/20 09:51 Heparin SC 5,000 units TID DIDIER Administration Hydralazine HCl 10 mg 04/01/20 04:30 04/03/20 00:18 Apresoline SLOW IVP 10 mg Q6H PRN Administration SBP GREATER THAN 160 Hydralazine HCl 50 mg 04/06/20 15:00 04/09/20 10:35 Apresoline PO Not Given TID [facility] Insulin Human Regular 0 units 04/01/20 04:32 04/06/20 16:13 Humulin R SC 2 unit .MILD SLIDING SCALE PRN Administration Mild Correctional Scale Isosorbide Mononitrate 30 mg 04/04/20 09:00 04/09/20 10:35 Imdur Er PO Not Given DAILY [facility] Labetalol HCl 20 mg 04/01/20 04:30 04/01/20 14:51 Normodyne SLOW IVP 4 ml Q4H PRN Administration SBP > 160 use third Metoclopramide HCl 10 mg 04/02/20 13:31 04/08/20 16:24 Reglan IVP 10 mg Q6H PRN Administration Nausea/Vomiting Metoprolol Tartrate 50 mg 04/01/20 09:00 04/09/20 13:06 Lopressor PO 50 mg BID DIDIER Administration Nitroglycerin 0.4 mg 04/02/20 12:41 04/02/20 13:11 Nitrostat SL 0.4 mg Q5MIN PRN Administration Chest Pain Pantoprazole Sodium 40 mg 04/06/20 09:00 04/09/20 10:36 Protonix PO Not Given DAILY [facility] Polyethylene Glycol 17 gm 04/01/20 09:00 04/09/20 10:36 Miralax PO Not Given DAILY [facility] Sodium Chloride 10 ml 04/01/20 04:32 04/08/20 20:09 Flush - Normal Saline IVF 10 ml PRN PRN Administration Saline Flush - Exam General Appearance: NAD, awake alert General - other findings: obese Eye: PERRL, anicteric sclera ENT: normocephalic atraumatic, no oropharyngeal lesions Neck: no JVD Heart: RRR, no murmur, no gallops, no rubs Respiratory: CTAB, no wheezes, no rales, no ronchi Gastrointestinal: soft, non-tender, non-distended, normal bowel sounds Extremities: no cyanosis, no clubbing, no edema Skin: normal turgor, no lesions Neurological: cranial nerve grossly intact, normal sensation to touch, no focal deficits, no new deficit Musculoskeletal: normal tone, normal strength, no muscle wasting Hosp A/P - Plan This is 64 year old male with past medical history of CKD, hypertension, diabetes presenting with COVID pneumonia COVID positive with pneumonia - - Azithro d/c due to Prolonged QT interval - pt received 2 doses (04/01-04/02) - s/p 5 days of Rocephin Chest pain with indeterminant troponin - s/p heparin drip for five days - started plavix due to aspirin allergy Acute on Chronic kidney disease - improved volume status - continue with dialysis, patient to get it today - he did pull out trialysis catheter, restraints have been ordered Dysphagia - speech saw patient and recommended pureed and nectar thick diet HTN - controlled -missed meds this morning. Advised to continue metoprolol and amlodipine and if BP still > 150, can resume other meds DM - continue insulin sliding scale Dyslipidemia - continue statin and zetia Dispo: plan to start dialysis today
[2020-04-09] MEDS: Insulin Regular 300 UNITS/3 ML VIAL SC PRN ×2 (18:06→22:24)
[2020-04-09] MEDS: Atorvastatin Calcium 40 MG TAB PO SCH (20:07)
[2020-04-10 04:56] LABS: Hemoglobin 8.9 g/dL (14.0-18.0); Mean Corpuscular HGB CONC 31.8 g/dL (32.0-36.0); Mean Corpuscular Hemoglobin 26.6 pg (27.0-31.0); Mean Corpuscular Volume 83.5 fL (78.0-98.0); Mean Platelet Volume 7.6 fL (7.4-10.4); Platelet Count 264 thou/uL (130-400); RBC Distribution Width 12.7 % (11.5-14.5); Red Blood Cell (RBC) Count 3.36 mill/uL (4.70-6.10)
[2020-04-10 05:18] LABS: Anion Gap 17 mmol/L (10-20); BUN (Urea Nitrogen) 71 mg/dL (8.4-25.7); Calc. Creatinine Clearance 10 mL/min (70-130); Calcium 7.1 mg/dL (7.8-10.44); Carbon Dioxide 25 mmol/L (23-31); Chloride 100 mmol/L (98-107); Estimated GFR-MDRD 6; Glucose 110 mg/dL (80-115); Potassium 3.8 mmol/L (3.5-5.1); Sodium 138 mmol/L (136-145)
[2020-04-10] MEDS: Ezetimibe 10 MG TAB PO SCH (09:14)
[2020-04-10] MEDS: Heparin 5,000 UNITS/ML VIAL SC SCH ×3 (09:14→21:16)
[2020-04-10] MEDS: Amlodipine 10 MG TAB PO SCH (09:14)
[2020-04-10] MEDS: Polyethylene Glycol 3350 17 GM Packet PO SCH (09:14)
[2020-04-10] MEDS: hydrALAZINE 25 MG TAB PO SCH ×3 (09:14→21:16)
[2020-04-10] MEDS: Metoprolol Tartrate 50 MG TAB PO SCH ×2 (09:15→21:16)
[2020-04-10] MEDS ORDERED: Heparin 10,000 UNITS/ 10 ML VIAL ONE (09:29)
--- NOTE | 2020-04-10 11:30 | CT ---
Exam: Head CT without contrast HISTORY: Last seen normal at 10:00 AM. Level 1 stroke. COMPARISON: 04/09/2020 FINDINGS: Hemorrhage: No intraparenchymal hemorrhage or extra-axial hematoma. Brain parenchyma: Cortical mayen-white matter differentiation is preserved. No mass effect or midline shift. Basilar cisterns are patent.Stable white matter hypodensities as well as hypoattenuation the deep mayen matter structures suggesting remote lacunar infarcts. Ventricular system: Ventricles and sulci are patent and symmetric. Calvarium: Intact. Sinuses and mastoid air cells: Adequate aeration. IMPRESSION: 1. No acute intracranial process. 2. No significant change since the previous CT. 3. Extensive chronic small vessel ischemic changes white matter 4. Results study discussed with Dr. Parish 04/10/2020 11:27 AM Code CR
[2020-04-10 11:49] LABS: #Monocytes 0.7 thou/uL (0.11-0.59); #Neutrophils 5.9 thou/uL (1.40-6.50); %Basophils 0.2 % (0.0-1.0); %Eosinophils 0.3 % (0.0-10.0); %Lymphocytes 13.4 % (21.0-51.0); %Neutrophils 77.1 % (42.0-75.0); Hemoglobin 9.1 g/dL (14.0-18.0); Mean Corpuscular HGB CONC 31.3 g/dL (32.0-36.0); Mean Corpuscular Hemoglobin 26.7 pg (27.0-31.0); Mean Corpuscular Volume 85.3 fL (78.0-98.0); Mean Platelet Volume 7.4 fL (7.4-10.4); Platelet Count 262 thou/uL (130-400); RBC Distribution Width 12.7 % (11.5-14.5); White Blood Cell (WBC) Count 7.6 thou/uL (4.8-10.8)
--- NOTE | 2020-04-10 11:54 | PRG ---
DATE OF SERVICE: 04/10/2020 SUBJECTIVE: The patient is on COVID isolation. OBJECTIVE: VITAL SIGNS: Temperature 98.6, pulse 90, respiratory rate 20, and blood pressure 156/95. LABORATORY DATA: Potassium 3.8, BUN is 71, creatinine is 10.6. ASSESSMENT: 1. End-stage renal disease. Plan to have dialysis. 2. Hypertension. 3. Anemia of chronic disease. 4. Edema, controlled. 5. Coronavirus disease-19 infection. PLAN: To have dialysis today if tolerated. Job ID: [id number]
[2020-04-10 11:59] LABS: Prothrombin Time 13.3 sec (12.0-14.7)
[2020-04-10 12:00] LABS: PTT 31.3 sec (22.9-36.1)
[2020-04-10 12:04] LABS: ALT (SGPT) 56 U/L (8-55); AST (SGOT) 91 U/L (5-34); Albumin 2.8 g/dL (3.4-4.8); Alkaline Phosphatase 123 U/L (40-110); Anion Gap 16 mmol/L (10-20); BUN (Urea Nitrogen) 75 mg/dL (8.4-25.7); Bilirubin, Total 0.5 mg/dL (0.2-1.2); CK (CPK) 704 U/L (30-200); Calc. Creatinine Clearance 9 mL/min (70-130); Carbon Dioxide 25 mmol/L (23-31); Chloride 100 mmol/L (98-107); Estimated GFR-MDRD 6; Globulin 3.4 g/dL (2.4-3.5); Glucose 207 mg/dL (80-115); Protein, Total 6.2 g/dL (5.8-8.1); Sodium 137 mmol/L (136-145)
[2020-04-10 12:17] LABS: CKMB 3.4 ng/mL (0-6.6)
[2020-04-10 12:26] LABS: Actual Bicarbonate (HCO3a) 20.6 mEq/L (22-28); Base Excess (BEa) -3.2 mEq/L (-2.0 to +3.0); CO2 Tension 31.5 mmHg (35.0-45.0); Calcium, Ionized (arterial) 0.97 mmol/L (1.12-1.30); Carboxyhemoglobin (COHb) 0.3 gm% (0.0-3.0); Hemoglobin (Hb) 8.3 g/dL (14.0-18.0); Potassium - ABG Lab 3.92 mmol/L (3.70-5.30); pH, Arterial 7.43 (7.35-7.45)
[2020-04-10 12:35] LABS: #Monocytes 0.8 thou/uL (0.11-0.59); #Neutrophils 6.1 thou/uL (1.40-6.50); %Basophils 0.2 % (0.0-1.0); %Eosinophils 0.2 % (0.0-10.0); %Lymphocytes 12.9 % (21.0-51.0); %Monocytes 9.5 % (0.0-10.0); %Neutrophils 77.2 % (42.0-75.0); Hemoglobin 8.9 g/dL (14.0-18.0); Mean Corpuscular HGB CONC 31.8 g/dL (32.0-36.0); Mean Corpuscular Hemoglobin 27.2 pg (27.0-31.0); Mean Corpuscular Volume 85.3 fL (78.0-98.0); Mean Platelet Volume 7.1 fL (7.4-10.4); Platelet Count 250 thou/uL (130-400); RBC Distribution Width 12.6 % (11.5-14.5); Red Blood Cell (RBC) Count 3.27 mill/uL (4.70-6.10); White Blood Cell (WBC) Count 7.9 thou/uL (4.8-10.8)
[2020-04-10 12:51] LABS: Lactic Acid 0.8 mmol/L (0.5-2.2)
[2020-04-10 12:53] LABS: Anion Gap 18 mmol/L (10-20); BUN (Urea Nitrogen) 75 mg/dL (8.4-25.7); Calc. Creatinine Clearance 9 mL/min (70-130); Carbon Dioxide 22 mmol/L (23-31); Chloride 100 mmol/L (98-107); Estimated GFR-MDRD 6; Glucose 218 mg/dL (80-115); Sodium 136 mmol/L (136-145)
[2020-04-10 13:06] LABS: ALV-art Gradient 72.265 (0-20); Puncture Site RRA
--- NOTE | 2020-04-10 15:03 | PDOC.HOSPP ---
- Subjective Encounter Date: 04/10/20 Encounter Time: 12:00 Subjective: The patient had episode around 11:00 am where patient was not responsive and following commands. Stroke code was called. WHen I assessed patient he denied headache, tingling or numbness. No chest pain. Feels very drowsy and appeared pale CT head showed no new infarct. Neurology evaluated patient, stated continue medical management. Cardiology also stated no new recommendations unless troponins trend up significantly or anything abnormal on telemetry - Objective Vital Signs & Weight: Vital Signs (12 hours) Temp Temp Pulse Pulse Pulse Pulse Resp 04/10/20 12:00 98.7 F 82 12 04/10/20 11:57 98.4 F 84 87 85 04/10/20 08:50 04/10/20 08:00 98.5 F 94 16 04/10/20 04:02 98.6 F 90 20 Resp Resp Resp BP BP BP BP 04/10/20 12:00 120/73 04/10/20 11:57 16 16 16 156/86 H 165/84 H 151/87 H 04/10/20 08:50 04/10/20 08:00 164/87 H 04/10/20 04:02 156/95 H Pulse Ox Pulse Ox Pulse Ox Pulse Ox 04/10/20 12:00 97 04/10/20 11:57 92 L 87 L 100 04/10/20 08:50 96 04/10/20 08:00 94 L 04/10/20 04:02 96 Weight Admit Weight 199 lb 8 oz Weight 209 lb 7.026 oz I&O: 04/09/20 04/10/20 04/11/20 06:59 06:59 06:59 Intake Total 320 150 Balance 320 150 Result Diagrams: 04/10/20 12:22 04/10/20 12:22 Additional Labs: Accuchecks 04/10/20 04/09/20 04/09/20 11:00 20:15 17:17 POC Glucose 214 H 304 H 260 H Hospitalist ROS - Review of Systems ROS unobtainable: due to mental status - Medication Medications: Active Medications Generic Name Dose Route Start Last Admin Trade Name Freq PRN Reason Stop Dose Admin Acetaminophen 650 mg 04/01/20 04:29 04/02/20 18:25 Tylenol PO 650 mg Q4H PRN Administration Headache/Fever/Mild Pain (1-3) Hydrocodone Bitart/Acetaminophen 1 tab 04/01/20 04:30 04/01/20 08:32 [place] 5/325 PO 1 tab Q4H PRN Administration Moderate Pain (4-6) Amlodipine Besylate 10 mg 04/04/20 09:00 04/10/20 09:14 Norvasc PO 10 mg DAILY DIDIER Administration Clonidine 0.1 mg 04/01/20 04:30 04/03/20 19:31 Catapres PO 0.1 mg BID PRN Administration SBP > 160 use second Ezetimibe 10 mg 04/02/20 09:00 04/10/20 09:14 Zetia PO 10 mg DAILY DIDIER Administration Guaifenesin 200 mg 04/05/20 13:08 04/07/20 20:37 Robitussin Sf PO 200 mg Q4H PRN Administration Cough Heparin Sodium (Porcine) 5,000 units 04/07/20 15:00 04/10/20 09:14 Heparin SC 5,000 units TID DIDIER Administration Hydralazine HCl 10 mg 04/01/20 04:30 04/03/20 00:18 Apresoline SLOW IVP 10 mg Q6H PRN Administration SBP GREATER THAN 160 Hydralazine HCl 50 mg 04/06/20 15:00 04/10/20 13:28 Apresoline PO Not Given TID [facility] Insulin Human Regular 0 units 04/01/20 04:32 04/09/20 18:06 Humulin R SC 4 unit .MILD SLIDING SCALE PRN Administration Mild Correctional Scale Insulin Human Regular 0 units 04/09/20 20:49 04/09/20 22:24 Humulin R SC 4 unit .BEDTIME SLIDING SC PRN Administration BEDTIME SLIDING SCALE Protocol Isosorbide Mononitrate 30 mg 04/04/20 09:00 04/10/20 09:14 Imdur Er PO 30 mg DAILY DIDIER Administration Labetalol HCl 20 mg 04/01/20 04:30 04/01/20 14:51 Normodyne SLOW IVP 4 ml Q4H PRN Administration SBP > 160 use third Metoclopramide HCl 10 mg 04/02/20 13:31 04/08/20 16:24 Reglan IVP 10 mg Q6H PRN Administration Nausea/Vomiting Metoprolol Tartrate 50 mg 04/01/20 09:00 04/10/20 09:15 Lopressor PO 50 mg BID DIDIER Administration Nitroglycerin 0.4 mg 04/02/20 12:41 04/02/20 13:11 Nitrostat SL 0.4 mg Q5MIN PRN Administration Chest Pain Pantoprazole Sodium 40 mg 04/06/20 09:00 04/10/20 10:14 Protonix PO Not Given DAILY DIDIER Polyethylene Glycol 17 gm 04/01/20 09:00 04/10/20 09:14 Miralax PO 17 gm DAILY DIDIER Administration Sodium Chloride 10 ml 04/01/20 04:32 04/08/20 20:09 Flush - Normal Saline IVF 10 ml PRN PRN Administration Saline Flush - Exam General Appearance: NAD General - other findings: drowsy, able to answer yes/no questions. Pale Eye: anicteric sclera ENT: normocephalic atraumatic, no oropharyngeal lesions Neck: no JVD Heart: RRR, no murmur Respiratory: CTAB, no wheezes, no rales, no ronchi Gastrointestinal: soft, non-tender, non-distended, normal bowel sounds Extremities: no cyanosis, no clubbing, no edema Skin: normal turgor, no lesions, no rashes Neurological: cranial nerve grossly intact, normal sensation to touch, no focal deficits, no new deficit Musculoskeletal: normal tone, normal strength, no muscle wasting Hosp A/P - Plan This is 64 year old male with past medical history of CKD, hypertension, diabetes presenting with COVID pneumonia COVID positive with pneumonia - - Azithro d/c due to Prolonged QT interval - pt received 2 doses (04/01-04/02) - s/p 5 days of Rocephin - will repeat chest X ray today Acute encephalopathy - possibly recurrent TIA vs metabolic encephalopathy - has had recurrent unresponsive episodes, but no focal deficits. CT head today normal - check EKG, chest X ray. Labs unchanged, creatinine 11, nephrology is following - neuro was consulted, recommended continuing plavix, statin . Cannot Do MRI since COVID + - will check blood cultures - LFT elevated, check ammonia level Transaminitis - LFT trending up - will reduce statin dose to 40 mg qhs. Repeat LFT tomorrow Chest pain with indeterminant troponin - s/p heparin drip for five days. On plavix due to aspirin allergy - repeat troponin today 0.06. CKMB normal. Will continue to trend. DIscussed with cardiology, re- consult if any arrhythmias noted on tele. Doesn't appear to need cath at this time Acute on Chronic kidney disease - improved volume status - continue with dialysis as needed Dysphagia - speech saw patient and recommended pureed and nectar thick diet HTN - controlled -continue current meds DM - continue insulin sliding scale Dyslipidemia - continue statin and zetia Dispo: pending improvement in fluctuations in mental status
[2020-04-10 15:43] LABS: Hemoglobin 9.2 g/dL (14.0-18.0); Platelet Count 251 thou/uL (130-400)
[2020-04-10 16:25] LABS: CKMB 3.6 ng/mL (0-6.6)
--- NOTE | 2020-04-10 16:36 | RAD ---
CHEST ONE VIEW: History: Encephalopathy Comparison: 03-17-2020 FINDINGS: Minimal increased markings are noted bilaterally. No evidence for confluent process. No significant p leural effusion. Heart size is within normal limits. IMPRESSION: Minimal nonspecific increased bronchovascular markings. No evidence for other acute process. POS: [facility]
[2020-04-10] MEDS: Atorvastatin Calcium 40 MG TAB PO SCH (21:16)
[2020-04-10] MEDS: Pantoprazole 40 MG GRANULES PACKET PO SCH (21:16)
[2020-04-11 04:58] LABS: Mean Corpuscular HGB CONC 32.4 g/dL (32.0-36.0); Mean Corpuscular Hemoglobin 27.2 pg (27.0-31.0); Mean Corpuscular Volume 83.8 fL (78.0-98.0); Mean Platelet Volume 7.1 fL (7.4-10.4); Platelet Count 229 thou/uL (130-400); RBC Distribution Width 12.5 % (11.5-14.5); Red Blood Cell (RBC) Count 2.96 mill/uL (4.70-6.10); White Blood Cell (WBC) Count 6.6 thou/uL (4.8-10.8)
[2020-04-11 05:18] LABS: ALT (SGPT) 82 U/L (8-55); AST (SGOT) 83 U/L (5-34); Albumin 2.8 g/dL (3.4-4.8); Alkaline Phosphatase 136 U/L (40-110); Anion Gap 15 mmol/L (10-20); BUN (Urea Nitrogen) 42 mg/dL (8.4-25.7); Bilirubin, Total 0.5 mg/dL (0.2-1.2); Calc. Creatinine Clearance 13 mL/min (70-130); Calcium 7.5 mg/dL (7.8-10.44); Carbon Dioxide 27 mmol/L (23-31); Chloride 99 mmol/L (98-107); Estimated GFR-MDRD 9; Globulin 3.3 g/dL (2.4-3.5); Glucose 122 mg/dL (80-115); Potassium 3.7 mmol/L (3.5-5.1); Protein, Total 6.1 g/dL (5.8-8.1); Sodium 137 mmol/L (136-145)
[2020-04-11] MEDS: Ezetimibe 10 MG TAB PO SCH (09:26)
[2020-04-11] MEDS: Amlodipine 10 MG TAB PO SCH (09:26)
[2020-04-11] MEDS: Heparin 5,000 UNITS/ML VIAL SC SCH ×4 (09:27→21:34)
[2020-04-11] MEDS: hydrALAZINE 25 MG TAB PO SCH ×3 (09:27→21:34)
[2020-04-11] MEDS: Metoprolol Tartrate 50 MG TAB PO SCH ×2 (09:28→21:34)
[2020-04-11] MEDS: Polyethylene Glycol 3350 17 GM Packet PO SCH (09:28)
--- NOTE | 2020-04-11 13:20 | CON ---
NEUROLOGY CONSULTATION: DATE OF CONSULTATION: 04/10/2020 REASON FOR CONSULTATION: Altered mental status. HISTORY OF PRESENT ILLNESS: Mr. Maurice Lechuga is a 64-year-old male with medical history significant for hypertension, chronic kidney disease, who is admitted to the [facility] in [place], [place], on 04/01/2020 with complaint of abdominal pain. He had recent exposure to COVID because his sister 3 weeks ago from COVID-19. He was tested and was positive for COVID, and his chest x-ray was also positive for bilateral pneumonia. He was admitted for further evaluation and management. There has been a concern since the last 2 days that he was having episodes of increased somnolence. There was a concern that he may have had a new stroke or mini TIA, so Neurology was consulted for further evaluation. He had a head CT done on 04/08/2020, which was negative for acute intracranial pathology. There is an another head CT done after an another episode of somnolence today at 1107 hours, which was reviewed and was negative for acute intracranial process. Nephrology is on board and the patient is scheduled for dialysis. REVIEW OF SYSTEMS: Unobtainable due to the patient's mental status. PAST MEDICAL HISTORY: 1. Hypertension. 2. Chronic kidney disease. 3. Diabetes mellitus. 4. Prior stroke in 2016. PAST SURGICAL HISTORY: Status post back surgery. FAMILY HISTORY: No family history of stroke. SOCIAL HISTORY: There is no documented history of smoking, alcohol, or illegal drug use. ALLERGIES: Aspirin Vital Signs & Weight: Vital Signs (12 hours) Temp Temp Pulse Pulse Pulse Pulse Resp 04/10/20 12:00 98.7 F 82 12 04/10/20 11:57 98.4 F 84 87 85 04/10/20 08:50 04/10/20 08:00 98.5 F 94 16 04/10/20 04:02 98.6 F 90 20 Resp Resp Resp BP BP BP BP 04/10/20 12:00 120/73 04/10/20 11:57 16 16 16 156/86 H 165/84 H 151/87 H 04/10/20 08:50 04/10/20 08:00 164/87 H 04/10/20 04:02 156/95 H Pulse Ox Pulse Ox Pulse Ox Pulse Ox 04/10/20 12:00 97 04/10/20 11:57 92 L 87 L 100 04/10/20 08:50 96 04/10/20 08:00 94 L 04/10/20 04:02 96 Weight Admit Weight 199 lb 8 oz Weight 209 lb 7.026 oz I&O: 04/09/20 04/10/20 04/11/20 06:59 06:59 06:59 Intake Total 320 150 Balance 320 150 Additional Labs: Accuchecks 04/10/20 04/09/20 04/09/20 11:00 20:15 17:17 POC Glucose 214 H 304 H 260 H Active Medications Generic Name Dose Route Start Last Admin Trade Name Freq PRN Reason Stop Dose Admin Acetaminophen 650 mg 04/01/20 04:29 04/02/20 18:25 Tylenol PO 650 mg Q4H PRN Administration Headache/Fever/Mild Pain (1-3) Hydrocodone Bitart/Acetaminophen 1 tab 04/01/20 04:30 04/01/20 08:32 [place] 5/325 PO 1 tab Q4H PRN Administration Moderate Pain (4-6) Amlodipine Besylate 10 mg 04/04/20 09:00 04/10/20 09:14 Norvasc PO 10 mg DAILY DIDIER Administration Clonidine 0.1 mg 04/01/20 04:30 04/03/20 19:31 Catapres PO 0.1 mg BID PRN Administration SBP > 160 use second Ezetimibe 10 mg 04/02/20 09:00 04/10/20 09:14 Zetia PO 10 mg DAILY DIDIER Administration Guaifenesin 200 mg 04/05/20 13:08 04/07/20 20:37 Robitussin Sf PO 200 mg Q4H PRN Administration Cough Heparin Sodium (Porcine) 5,000 units 04/07/20 15:00 04/10/20 09:14 Heparin SC 5,000 units TID DIDIER Administration Hydralazine HCl 10 mg 04/01/20 04:30 04/03/20 00:18 Apresoline SLOW IVP 10 mg Q6H PRN Administration SBP GREATER THAN 160 Hydralazine HCl 50 mg 04/06/20 15:00 04/10/20 13:28 Apresoline PO Not Given TID DIDIER Insulin Human Regular 0 units 04/01/20 04:32 04/09/20 18:06 Humulin R SC 4 unit .MILD SLIDING SCALE PRN Administration Mild Correctional Scale Insulin Human Regular 0 units 04/09/20 20:49 04/09/20 22:24 Humulin R SC 4 unit .BEDTIME SLIDING SC PRN Administration BEDTIME SLIDING SCALE Protocol Isosorbide Mononitrate 30 mg 04/04/20 09:00 04/10/20 09:14 Imdur Er PO 30 mg DAILY DIDIER Administration Labetalol HCl 20 mg 04/01/20 04:30 04/01/20 14:51 Normodyne SLOW IVP 4 ml Q4H PRN Administration SBP > 160 use third Metoclopramide HCl 10 mg 04/02/20 13:31 04/08/20 16:24 Reglan IVP 10 mg Q6H PRN Administration Nausea/Vomiting Metoprolol Tartrate 50 mg 04/01/20 09:00 04/10/20 09:15 Lopressor PO 50 mg BID DIDIER Administration Nitroglycerin 0.4 mg 04/02/20 12:41 04/02/20 13:11 Nitrostat SL 0.4 mg Q5MIN PRN Administration Chest Pain Pantoprazole Sodium 40 mg 04/06/20 09:00 04/10/20 10:14 Protonix PO Not Given DAILY DIDIER Polyethylene Glycol 17 gm 04/01/20 09:00 04/10/20 09:14 Miralax PO 17 gm DAILY DIDIER Administration Sodium Chloride 10 ml 04/01/20 04:32 04/08/20 20:09 Flush - Normal Saline IVF 10 ml PRN PRN Administration Saline Flush PHYSICAL EXAMINATION: GENERAL APPEARANCE: Ill appearing. EYES: Pupils are equal and reactive to light. HENT: Normocephalic, atraumatic. NECK: Supple. CHEST: Regular rate and rhythm. ABDOMEN: Soft. NEUROLOGICAL: Mental status, the patient is extremely somnolent. He opens eyes , but does not track. He does not respond to verbal stimuli. Grimaces to noxious stimuli. Extraocular movements are intact. No gaze preference. Cranial nerves, pupils are equal and reactive to light. Face is symmetric. Tongue in midline. Moves neck in both directions. Motor; muscle tone and bulk are normal. Minimal spontaneous movement of all 4 extremities to nailbed pressure. Sensory, withdraws all 4 extremities to nailbed pressure. Cerebellar, could not be assessed secondary to mental status. Gait deferred due to the patient's safety reasons. DATA REVIEWED: I reviewed the last 2 CT scans, which were negative for acute intracranial pathology. ASSESSMENT AND PLAN: Mr. Maurice Lechuga is consulted for altered mental status. He does have COVID pneumonia, prior stroke, and other risk factors. Repeat head CT reviewed, which was negative for acute intracranial pathology. Altered mental status seems to be multifactorial secondary to more likely infectious and metabolic etiology. Continue Plavix and high-intensity statin for secondary stroke prevention. Telemetry, which revealed arrhythmia . Consider cardiology input. Continue medical management per primary team. Case discussed with the primary attending Dr. Nieto. Job ID: [id number] [facility]
--- NOTE | 2020-04-11 13:34 | PDOC.HOSPP ---
- Subjective Encounter Date: 04/11/20 Encounter Time: 11:00 Subjective: The patient has no complaints. He is noted to be drowsy today. Per nursing staff , patient had pulled his trialysis catheter for second time and was noted to be oozing blood. The patient has mild dry cough, no SOB - Objective Vital Signs & Weight: Vital Signs (12 hours) Temp Pulse Resp BP BP Pulse Ox 04/11/20 13:00 96.1 F L 77 16 134/79 97 04/11/20 10:00 97.2 F L 83 18 164/85 H 99 04/11/20 09:27 82 04/11/20 09:26 82 142/82 H 04/11/20 03:10 98.6 F 82 20 142/82 H 97 Weight Admit Weight 199 lb 8 oz Weight 196 lb 9.6 oz I&O: 04/10/20 04/11/20 04/12/20 06:59 06:59 06:59 Intake Total 150 1640 Balance 150 1640 Result Diagrams: 04/11/20 04:45 04/11/20 04:45 Additional Labs: Accuchecks 04/11/20 04/10/20 04/10/20 12:47 19:44 15:54 POC Glucose 122 H 133 H 119 H Hospitalist ROS - Review of Systems Constitutional: denies: fever, chills - Medication Medications: Active Medications Generic Name Dose Route Start Last Admin Trade Name Freq PRN Reason Stop Dose Admin Acetaminophen 650 mg 04/01/20 04:29 04/02/20 18:25 Tylenol PO 650 mg Q4H PRN Administration Headache/Fever/Mild Pain (1-3) Amlodipine Besylate 10 mg 04/04/20 09:00 04/11/20 09:26 Norvasc PO 10 mg DAILY DIDIER Administration Atorvastatin Calcium 40 mg 04/10/20 21:00 04/10/20 21:16 Lipitor PO 40 mg HS DIDIER Administration Clonidine 0.1 mg 04/01/20 04:30 04/03/20 19:31 Catapres PO 0.1 mg BID PRN Administration SBP > 160 use second Ezetimibe 10 mg 04/02/20 09:00 04/11/20 09:26 Zetia PO 10 mg DAILY DIDIER Administration Guaifenesin 200 mg 04/05/20 13:08 04/07/20 20:37 Robitussin Sf PO 200 mg Q4H PRN Administration Cough Heparin Sodium (Porcine) 5,000 units 04/07/20 15:00 04/11/20 10:36 Heparin SC Not Given TID DIDIER Hydralazine HCl 10 mg 04/01/20 04:30 04/03/20 00:18 Apresoline SLOW IVP 10 mg Q6H PRN Administration SBP GREATER THAN 160 Hydralazine HCl 50 mg 04/06/20 15:00 04/11/20 09:27 Apresoline PO 50 mg TID DIDIER Administration Insulin Human Regular 0 units 04/01/20 04:32 04/09/20 18:06 Humulin R SC 4 unit .MILD SLIDING SCALE PRN Administration Mild Correctional Scale Insulin Human Regular 0 units 04/09/20 20:49 04/09/20 22:24 Humulin R SC 4 unit .BEDTIME SLIDING SC PRN Administration BEDTIME SLIDING SCALE Protocol Isosorbide Mononitrate 30 mg 04/04/20 09:00 04/11/20 09:28 Imdur Er PO 30 mg DAILY DIDIER Administration Labetalol HCl 20 mg 04/01/20 04:30 04/01/20 14:51 Normodyne SLOW IVP 4 ml Q4H PRN Administration SBP > 160 use third Metoclopramide HCl 10 mg 04/02/20 13:31 04/08/20 16:24 Reglan IVP 10 mg Q6H PRN Administration Nausea/Vomiting Metoprolol Tartrate 50 mg 04/01/20 09:00 04/11/20 09:28 Lopressor PO 50 mg BID DIDIER Administration Nitroglycerin 0.4 mg 04/02/20 12:41 04/02/20 13:11 Nitrostat SL 0.4 mg Q5MIN PRN Administration Chest Pain Pantoprazole Sodium 40 mg 04/10/20 21:00 04/10/20 21:16 Protonix PO 40 mg HS DIDIER Administration Polyethylene Glycol 17 gm 04/01/20 09:00 04/11/20 09:28 Miralax PO 17 gm DAILY DIDIER Administration Sodium Chloride 10 ml 04/01/20 04:32 04/08/20 20:09 Flush - Normal Saline IVF 10 ml PRN PRN Administration Saline Flush - Exam General Appearance: NAD, awake alert General - other findings: drowsy intermittently but answers questions Eye: PERRL, anicteric sclera ENT: normocephalic atraumatic, no oropharyngeal lesions Neck: no JVD Heart: RRR, no murmur, no gallops, no rubs Respiratory: CTAB, no wheezes, no rales, no ronchi Gastrointestinal: soft, non-tender, non-distended, normal bowel sounds Extremities: no cyanosis, no clubbing, no edema Extremities - other findings: left groin trialysis catheter in place Skin: normal turgor, no lesions, no rashes Neurological: cranial nerve grossly intact, normal sensation to touch, no focal deficits, no new deficit Hosp A/P - Plan Chest Xray 04/10: minimal increased bronchovascular markings CT brain 04/10: extensive chronic microvascular ischemic disease This is 64 year old male with past medical history of CKD, hypertension, diabetes presenting with COVID pneumonia COVID positive with pneumonia - - Azithro d/c due to Prolonged QT interval - pt received 2 doses (04/01-04/02) - s/p 5 days of Rocephin - repeat chest Xray shows no significant change - continue to wean off oxygen Acute encephalopathy - possibly recurrent TIA vs metabolic encephalopathy - has had recurrent unresponsive episodes, but no focal deficits. CT head today normal - EKG and chest X ray unchanged. Patient received dialysis yesterday, mental status minimally improved - continue plavix, aspirin. Unable to do ECHO, MRI due to COVID status - blood cultures negative - ammonia level normal Transaminitis - LFT trending down with reduced statin dose - hep B serology negative. Will check hep C tomorrow Chest pain with indeterminant troponin - s/p heparin drip for five days. On plavix due to aspirin allergy - repeat troponin trending up x 3, but CKMB normal. Discussed with cardiology, no need for cath at this time given COVID + status. - will repeat troponin in am Acute on Chronic kidney disease - improved volume status - continue dialysis M, W, F - creatinine down to 7 - surgical consult placed for tunneled dialysis catheter Dysphagia - speech saw patient and recommended pureed and nectar thick diet HTN - controlled -continue current meds DM - continue insulin sliding scale. Blood sugars in the 120's Dyslipidemia - continue statin and zetia Dispo: pending improvement in fluctuations in mental status
--- NOTE | 2020-04-11 14:13 | PRG ---
DATE OF SERVICE: 04/11/2020 SUBJECTIVE: The patient is on COVID isolation. OBJECTIVE: VITAL SIGNS: Temperature 96.1, pulse 77, respiratory rate 16, and history of pressure 134/79. LABORATORY DATA: Potassium 3.7, BUN is 42, and creatinine is . ASSESSMENT AND PLAN: 1. End-stage renal disease. Continue on dialysis as tolerated. Labs are much better from yesterday. No dialysis today. We will continue dialysis on Friday, Friday, and Friday. Follow with Case Management for outpatient placement. 2. COVID-19 infection. 3. Hypertension. 4. Anemia of chronic disease. 5. Edema. Continue dialysis as tolerated. Need permanent access once cleared of COVID infection and also need outpatient dialysis placement. Job ID: [id number]
--- NOTE | 2020-04-11 15:54 | EKG ---
Test Reason : AFTER CODE GREEN Blood Pressure : / mmHG Vent. Rate : 085 BPM Atrial Rate : 085 BPM P-R Int : 144 ms QRS Dur : 082 ms QT Int : 460 ms P-R-T Axes : 052 008 175 degrees QTc Int : 547 ms Normal sinus rhythm T wave abnormality, consider anterolateral ischemia Prolonged QT Abnormal ECG Confirmed by DR. Ewa MANTILLA MD ([id number]) on 04/11/2020 3:54:01 PM Referred By: YAN Confirmed By:DR. Ewa MANTILLA MD
--- NOTE | 2020-04-11 20:34 | PDOC.EVN ---
Event Note - Event Note Event Note: Nurse called, blood culture 1/2 gram neg. rods. Gave single dose cefepime. Afebrile, no WBC elevation.
[2020-04-11] MEDS ORDERED: Cefepime 1 GM in Sodium Chloride 0.9% 100 ML IVPB SCH (21:00)
[2020-04-11] MEDS: Atorvastatin Calcium 40 MG TAB PO SCH (21:35)
[2020-04-11] MEDS: Pantoprazole 40 MG GRANULES PACKET PO SCH (21:35)
[2020-04-12] MEDS ORDERED: Ibuprofen 800 MG TAB PO SCH (02:00)
[2020-04-12 04:05] LABS: ALT (SGPT) 61 U/L (8-55); AST (SGOT) 42 U/L (5-34); Albumin 2.7 g/dL (3.4-4.8); Alkaline Phosphatase 112 U/L (40-110); Anion Gap 14 mmol/L (10-20); BUN (Urea Nitrogen) 53 mg/dL (8.4-25.7); Bilirubin, Total 0.5 mg/dL (0.2-1.2); Calc. Creatinine Clearance 11 mL/min (70-130); Calcium 7.5 mg/dL (7.8-10.44); Carbon Dioxide 29 mmol/L (23-31); Chloride 97 mmol/L (98-107); Estimated GFR-MDRD 7; Globulin 3.4 g/dL (2.4-3.5); Glucose 151 mg/dL (80-115); Potassium 3.8 mmol/L (3.5-5.1); Protein, Total 6.1 g/dL (5.8-8.1); Sodium 136 mmol/L (136-145)
[2020-04-12 04:31] LABS: Hemoglobin 6.1 g/dL (14.0-18.0); Platelet Count 264 thou/uL (130-400)
--- NOTE | 2020-04-12 08:36 | CON ---
DATE OF CONSULTATION: HISTORY OF PRESENT ILLNESS: Rayshawn Richards is a 64-year-old black male, COVID positive, admitted by the hospitalist, 04/01/2020 for complaints of abdominal pain. The patient has been suffering nausea and vomiting, but denied diarrhea or chest pain. He denied dysuria. He denied flank pain or back tenderness. He is unable to take oral intake. EMS saw him initially, gave him nitroglycerin and Zofran without relief. The patient is known to have CKD, normal creatinine, baseline 3 to 4, but markedly elevated this admission at 6.13. CO2 and potassium within normal limits. He is febrile to 100.3 in the emergency room, had a recent exposure to COVID and his sister 3 weeks prior to this hospitalization from COVID. CT scan of the abdomen and pelvis demonstrated bilateral pneumonia, COVID based on visible sections of the lungs. COVID was positive. The patient has been in isolation. He has had fluctuating neurological status and has had a CT scan, neurology evaluation without acute findings. The patient has had a right femoral vein Trialysis catheter placed. We removed it and left one had to be replaced. It has been oozing. I have been asked by the Hospitalist Service to see him regarding placement of cuffed tunneled hemodialysis catheter once present. They have identified the long-term they will accept him. Although fluctuating neurological status, he is felt to be stable and could be transferred to COVID Unit. When I am seeing him, he has diminished mental status. He answers sometimes intelligible words, but is confused. Nurse reports that this fluctuates every 30 minutes to 40 minutes. PAST MEDICAL HISTORY: Hypertension, end-stage renal disease, initiated dialysis temporary femoral vein dialysis catheter this hospitalization, diabetes mellitus, previous history of stroke. PAST SURGICAL HISTORY: Back surgery, hemodialysis temporary catheters, right groin, replaced left when he removed it in confusion. SOCIAL HISTORY: Tobacco, never. Alcohol use, none. Drug use, none. PHYSICAL EXAMINATION: VITAL SIGNS: Height 5 feet 6 inches, weight 205 pounds, BMI 32. Temperature 98.2, pulse 82. HEAD EARS, EYES, NOSE AND THROAT: Unremarkable. LUNGS: Clear to auscultation. CARDIAC: Regular rate and rhythm without murmur or gallop. ABDOMEN: Soft, nontender, palpable radial pulses. No ankle edema. LABORATORY DATA: White count 6, hemoglobin 8, BUN 53, creatinine 8, GFR 7, potassium 3.8, CO2 of 29. Chest x-ray, 04/10/2020, minimal bronchovascular markings. No evidence of acute process, markedly improved from admission chest x-ray, 04/01. ASSESSMENT AND PLAN: 1. End-stage renal disease, on dialysis. He will need permanent dialysis. Should avoid IV access above his wrist. At a later time as an outpatient, we will obtain ultrasound vein mapping. Currently needs cuffed tunneled dialysis catheter, which we will place in the next day or two pending administrative approval. 2. Fluctuating mental status changes have been evaluated with two CAT scans of the brain and Neurology consult, encephalopathic. Job ID: [id number]
[2020-04-12] MEDS: hydrALAZINE 25 MG TAB PO SCH ×3 (10:34→20:39)
[2020-04-12] MEDS: Amlodipine 10 MG TAB PO SCH (10:34)
[2020-04-12] MEDS: Ezetimibe 10 MG TAB PO SCH (10:34)
[2020-04-12] MEDS: Polyethylene Glycol 3350 17 GM Packet PO SCH (10:35)
[2020-04-12] MEDS: Heparin 5,000 UNITS/ML VIAL SC SCH ×3 (10:35→21:39)
[2020-04-12] MEDS: Metoprolol Tartrate 50 MG TAB PO SCH ×2 (10:35→20:39)
--- NOTE | 2020-04-12 12:13 | PRG ---
DATE OF SERVICE: 04/12/2020 SUBJECTIVE: The patient is on COVID isolation. OBJECTIVE: VITAL SIGNS: Temperature 99.1, pulse 80, respiratory rate 18, and blood pressure 157/77. LABORATORY DATA: Potassium 3.8, BUN is 53, and creatinine is 8.8. ASSESSMENT AND PLAN: 1. End-stage renal disease. Continue dialysis as tolerated. 2. COVID-19 infection. 3. Hypertension. 4. Anemia of chronic disease. 5. Edema. Continue dialysis as tolerated. Monitor labs. Job ID: [id number]
--- NOTE | 2020-04-12 13:10 | PDOC.HOSPP ---
- Subjective Encounter Date: 04/12/20 Encounter Time: 10:30 Subjective: The patient is drowsy today, not able to answer too many questions. Blood culture positive 1/2 gram negative rods. Received cefepime overnight. No fevers PLan to put tunneled catheter tomorrow. Patient pulled left groin catheter yesterday and some bleeding was evident from there - Objective Vital Signs & Weight: Vital Signs (12 hours) Temp Pulse Resp BP BP Pulse Ox 04/12/20 10:50 93 166/86 H 98 04/12/20 07:46 99.1 F 88 18 157/77 H 95 04/12/20 03:10 98.2 F 82 18 142/72 H 94 L Weight Admit Weight 199 lb 8 oz Weight 205 lb I&O: 04/11/20 04/12/20 04/13/20 06:59 06:59 06:59 Intake Total 1640 320 Balance 1640 320 Result Diagrams: 04/12/20 03:00 04/12/20 03:00 Additional Labs: Accuchecks 04/11/20 04/11/20 04/11/20 19:59 16:02 12:47 POC Glucose 205 H 125 H 122 H Hospitalist ROS - Review of Systems Constitutional: denies: fever, chills - Medication Medications: Active Medications Generic Name Dose Route Start Last Admin Trade Name Freq PRN Reason Stop Dose Admin Acetaminophen 650 mg 04/01/20 04:29 04/02/20 18:25 Tylenol PO 650 mg Q4H PRN Administration Headache/Fever/Mild Pain (1-3) Amlodipine Besylate 10 mg 04/04/20 09:00 04/12/20 10:34 Norvasc PO 10 mg DAILY DIDIER Administration Atorvastatin Calcium 40 mg 04/10/20 21:00 04/11/20 21:35 Lipitor PO 40 mg HS DIDIER Administration Clonidine 0.1 mg 04/01/20 04:30 04/03/20 19:31 Catapres PO 0.1 mg BID PRN Administration SBP > 160 use second Ezetimibe 10 mg 04/02/20 09:00 04/12/20 10:34 Zetia PO 10 mg DAILY DIDIER Administration Guaifenesin 200 mg 04/05/20 13:08 04/07/20 20:37 Robitussin Sf PO 200 mg Q4H PRN Administration Cough Heparin Sodium (Porcine) 5,000 units 04/07/20 15:00 04/12/20 10:35 Heparin SC 5,000 units TID DIDIER Administration Hydralazine HCl 10 mg 04/01/20 04:30 04/03/20 00:18 Apresoline SLOW IVP 10 mg Q6H PRN Administration SBP GREATER THAN 160 Hydralazine HCl 50 mg 04/06/20 15:00 04/12/20 10:34 Apresoline PO 50 mg TID DIDIER Administration Insulin Human Regular 0 units 04/01/20 04:32 04/09/20 18:06 Humulin R SC 4 unit .MILD SLIDING SCALE PRN Administration Mild Correctional Scale Insulin Human Regular 0 units 04/09/20 20:49 04/09/20 22:24 Humulin R SC 4 unit .BEDTIME SLIDING SC PRN Administration BEDTIME SLIDING SCALE Protocol Isosorbide Mononitrate 30 mg 04/04/20 09:00 04/12/20 10:34 Imdur Er PO 30 mg DAILY DIDIER Administration Labetalol HCl 20 mg 04/01/20 04:30 04/01/20 14:51 Normodyne SLOW IVP 4 ml Q4H PRN Administration SBP > 160 use third Metoclopramide HCl 10 mg 04/02/20 13:31 04/08/20 16:24 Reglan IVP 10 mg Q6H PRN Administration Nausea/Vomiting Metoprolol Tartrate 50 mg 04/01/20 09:00 04/12/20 10:35 Lopressor PO 50 mg BID DIDIER Administration Nitroglycerin 0.4 mg 04/02/20 12:41 04/02/20 13:11 Nitrostat SL 0.4 mg Q5MIN PRN Administration Chest Pain Pantoprazole Sodium 40 mg 04/10/20 21:00 04/11/20 21:35 Protonix PO 40 mg HS DIDIER Administration Polyethylene Glycol 17 gm 04/01/20 09:00 04/12/20 10:35 Miralax PO 17 gm DAILY DIDIER Administration Sodium Chloride 10 ml 04/01/20 04:32 04/08/20 20:09 Flush - Normal Saline IVF 10 ml PRN PRN Administration Saline Flush - Exam General - other findings: drowsy, not answering many questions. Obese Eye: PERRL, anicteric sclera ENT: normocephalic atraumatic, no oropharyngeal lesions Neck: no JVD Heart: RRR, no murmur, no gallops, no rubs Respiratory: CTAB, no wheezes, no rales, no ronchi Gastrointestinal: soft, non-tender, non-distended, normal bowel sounds Extremities: no cyanosis, no clubbing, no edema Hosp A/P - Plan Chest Xray 04/10: minimal increased bronchovascular markings CT brain 04/10: extensive chronic microvascular ischemic disease This is 64 year old male with past medical history of CKD, hypertension, diabetes presenting with COVID pneumonia COVID positive with pneumonia - - Azithro d/c due to Prolonged QT interval - pt received 2 doses (04/01-04/02) - s/p 5 days of Rocephin - repeat chest Xray 04/10 shows no significant change - he has been weaned off oxygen Acute encephalopathy - possibly recurrent TIA vs metabolic encephalopathy vs gram negative bacteremia - has had recurrent unresponsive episodes, but no focal deficits. CT head normal, EKG and chest X ray unchanged - blood cultures 1/2 + for gram negative rods. Will add IV zosyn - repeat blood cultures - ammonia level normal - unable to do stroke workup since COVID + Anemia - Hb dropped to 6 today, transfuse 2 units prbc and repeat CBC Transaminitis - LFT trending down with reduced statin dose - hep B serology negative. Will check hep C tomorrow Chest pain with indeterminant troponin - s/p heparin drip for five days. On plavix due to aspirin allergy - repeat troponin trending up x 3, but CKMB normal. Discussed with cardiology, no need for cath at this time given COVID + status. - will repeat troponin in am Acute on Chronic kidney disease - improved volume status - continue dialysis M, W, F - creatinine 8.8 - surgical consult placed for tunneled dialysis catheter, plan to do this tomorrow Dysphagia - patient recommended to be NPO today HTN - controlled -continue current meds DM - continue insulin sliding scale. Blood sugars in the 120's Dyslipidemia - continue statin and zetia Dispo: placement of catheter (dialysis) tomorrow
[2020-04-12] MEDS: Piperacillin/Tazobactam 2.25 GM in Sodium Chloride 0.9% 100 ML IVPB SCH ×2 (13:21→21:14)
[2020-04-12] MEDS: Pantoprazole 40 MG GRANULES PACKET PO SCH (20:39)
[2020-04-12] MEDS: Atorvastatin Calcium 40 MG TAB PO SCH (20:39)
[2020-04-13] MEDS: Piperacillin/Tazobactam 2.25 GM in Sodium Chloride 0.9% 100 ML IVPB SCH ×4 (03:27→16:52)
[2020-04-13 06:10] LABS: ALT (SGPT) 46 U/L (8-55); AST (SGOT) 34 U/L (5-34); Albumin 2.8 g/dL (3.4-4.8); Alkaline Phosphatase 114 U/L (40-110); Anion Gap 17 mmol/L (10-20); BUN (Urea Nitrogen) 58 mg/dL (8.4-25.7); Bilirubin, Total 0.9 mg/dL (0.2-1.2); Calc. Creatinine Clearance 10 mL/min (70-130); Calcium 7.8 mg/dL (7.8-10.44); Carbon Dioxide 24 mmol/L (23-31); Chloride 100 mmol/L (98-107); Estimated GFR-MDRD 7; Globulin 3.6 g/dL (2.4-3.5); Glucose 147 mg/dL (80-115); Protein, Total 6.4 g/dL (5.8-8.1); Sodium 137 mmol/L (136-145)
[2020-04-13 06:25] LABS: Hemoglobin 10.9 g/dL (14.0-18.0); Mean Corpuscular HGB CONC 33.5 g/dL (32.0-36.0); Mean Corpuscular Hemoglobin 28.5 pg (27.0-31.0); Mean Corpuscular Volume 85.2 fL (78.0-98.0); Mean Platelet Volume 7.4 fL (7.4-10.4); Platelet Count 236 thou/uL (130-400); RBC Distribution Width 12.9 % (11.5-14.5); Red Blood Cell (RBC) Count 3.84 mill/uL (4.70-6.10); White Blood Cell (WBC) Count 7.8 thou/uL (4.8-10.8)
[2020-04-13] MEDS ORDERED: Fentanyl 100 MCG/2 ML VIAL ONE (06:31)
[2020-04-13] MEDS ORDERED: Propofol 500 MG/50 ML VIAL ONE (06:31)
[2020-04-13 06:34] LABS: HBCM Index 0.08 S/CO (0-0.79); Hep A IgM AB Non-Reactive (NonReactive); Hep A IgM S/CO 0.31 S/CO (0-0.79); Hep B Surf Ag Non-Reactive S/CO (NonReactive); Hepatitis B Core IgM Abs Non-Reactive (NonReactive)
[2020-04-13 06:43] LABS: Hep C IgG Ab Reflex HepC Qnt (NonReactive); Hep C Index 12.43 S/CO (0-0.79)
[2020-04-13] MEDS ORDERED: Heparin 10,000 UNITS/1 ML VIAL ONE (06:46)
[2020-04-13] MEDS ORDERED: Sodium Chloride 0.9% 30 ML ONE (06:46)
[2020-04-13] MEDS ORDERED: Lidocaine 2% w/Epinephrine 1:200K 20 ML VIAL ONE (06:46)
[2020-04-13] MEDS ORDERED: Bupivacaine PF 0.5% 30 ML VIAL ONE (06:46)
[2020-04-13] MEDS: hydrALAZINE 25 MG TAB PO SCH ×3 (07:58→22:00)
[2020-04-13] MEDS: Heparin 5,000 UNITS/ML VIAL SC SCH ×3 (07:58→22:00)
[2020-04-13] MEDS ORDERED: Ondansetron HCl/PF 4 MG/2 ML Vial IVP PRN (08:33)
[2020-04-13] MEDS ORDERED: Heparin 10,000 UNITS/ 10 ML VIAL ONE (09:22)
[2020-04-13] MEDS: Ezetimibe 10 MG TAB PO SCH (10:39)
[2020-04-13] MEDS: Amlodipine 10 MG TAB PO SCH (10:39)
[2020-04-13] MEDS: Polyethylene Glycol 3350 17 GM Packet PO SCH (10:39)
[2020-04-13] MEDS: Metoprolol Tartrate 50 MG TAB PO SCH ×2 (10:39→22:00)
--- NOTE | 2020-04-13 11:25 | OP ---
DATE OF PROCEDURE: 04/13/2020 PREOPERATIVE DIAGNOSES: End-stage renal disease, COVID positive, encephalopathic, dysfunctional temporary groin catheter. POSTOPERATIVE DIAGNOSES: End-stage renal disease, COVID positive, encephalopathic, dysfunctional temporary groin catheter. PROCEDURES PERFORMED: Right IJ cuffed tunneled hemodialysis catheter, ultrasound and fluoroscopy use. ANESTHESIA: Intravenous sedation with local 0.5% Marcaine with epinephrine 30 mL mixed with 1% Xylocaine with epinephrine 20 mL. DESCRIPTION OF PROCEDURE: The patient was taken to the operating room, where in the supine position, neck and chest prepared with ChloraPrep and draped in routine fashion. Local anesthetic mixture was infiltrated into the skin and subcutaneous tissue about the operative site. Ultrasound guidance was used to cannulate the right internal jugular vein, threading a J-wire, removing the trocar catheter, enlarging skin incision site at the J-wire entrance site of the neck and a stab incision was made over the right chest. Using the tunneling device, the pre-curved [employer] cuffed tunneled hemodialysis catheter tunneled between the 2 incisions, placing the fabric cuff beneath the skin exit site, and catheter was secured with 2 interrupted suture of 3-0 nylon. Sterile dressing applied. Smaller and medium size dilators placed over the J-wire into the internal jugular vein and removed. Dilator and Peel-Away sheath placed over the J-wire into the superior vena cava, and J-wire and dilator removed. Catheter placed with Peel-Away sheath. Peel-Away sheath removed. Platysma was approximated with 4-0 Monocryl, skin with subdermal 4-0 Monocryl, and dermal glue applied. Final fluoroscopic images revealed good line placement. Each port aspirated of blood and flushed with saline solution and heparinized saline solution with 1000 units of heparin per mL, indicating volume of the port. Job ID: [id number]
--- NOTE | 2020-04-13 12:35 | PRG ---
DATE OF SERVICE: 04/13/2020 SUBJECTIVE: The patient is seen in the COVID isolation room and very lethargic. He got the catheter today and dialysis nurse was doing the dialysis. OBJECTIVE: GENERAL: This is a well-built male, lethargic. VITAL SIGNS: Temperature 97.8. Heart Rate 82. Respiratory rate 20. Blood pressure 175/85. HEENT: Atraumatic, normocephalic. NECK: Supple. CVS: S1 and S2 heard. RESPIRATORY: Clear. MUSCULOSKELETAL: 1+ edema. NEUROLOGICAL: Lethargic. LABORATORY DATA: Potassium 4.0, BUN is 58, and creatinine is 9.7. ASSESSMENT AND PLAN: 1. End-stage renal disease. Continue dialysis as tolerated. 2. COVID-19 infection. 3. Hypertension. 4. Anemia of chronic disease. 5. Edema. We will continue on dialysis as tolerated. Follow up with Case Management for outpatient placement. Appreciate help from Surgery for tunneled dialysis catheter placed. Job ID: [id number]
--- NOTE | 2020-04-13 14:24 | RAD ---
XR Chest 1 View Portable HISTORY: Dialysis catheter placement COMPARISON: 04/10/2020 FINDINGS: There has been interval placement of a right internal jugular dialysis catheter with tip in the projection of the right atrium. No pneumothoraces are seen. There is atelectatic change at the right lung base with probable small effusion. The heart size is stable
--- NOTE | 2020-04-13 17:39 | PDOC.HOSPP ---
- Subjective Encounter Date: 04/13/20 Encounter Time: 11:00 Subjective: The patient is still slightly drowsy but more alert than yesterday. Said he feels okay and quickly goes back to sleep. He had tunneled cath placed yesterday Dialysis catheter still in groin however since no other IV access Speech saw him and recommended NPO, however patient aspirated with all textures today. He is on modified diet - Objective Vital Signs & Weight: Vital Signs (12 hours) Temp Pulse Resp BP BP Pulse Ox Pulse Ox 04/13/20 14:29 165/78 H 97 04/13/20 13:14 97.3 F L 76 24 H 163/74 H 98 04/13/20 08:51 97.8 F 83 20 175/85 H 96 Weight Admit Weight 199 lb 8 oz Weight 205 lb 9.6 oz I&O: 04/12/20 04/13/20 04/14/20 06:59 06:59 06:59 Intake Total 320 1485 Balance 320 1485 Result Diagrams: 04/13/20 05:36 04/13/20 05:36 Additional Labs: Accuchecks 04/13/20 04/12/20 04/12/20 13:08 20:49 17:48 POC Glucose 141 H 145 H 167 H Hospitalist ROS - Review of Systems Constitutional: denies: fever, chills - Medication Medications: Active Medications Generic Name Dose Route Start Last Admin Trade Name Freq PRN Reason Stop Dose Admin Acetaminophen 650 mg 04/01/20 04:29 04/02/20 18:25 Tylenol PO 650 mg Q4H PRN Administration Headache/Fever/Mild Pain (1-3) Amlodipine Besylate 10 mg 04/04/20 09:00 04/13/20 10:39 Norvasc PO Not Given DAILY DIDIER Atorvastatin Calcium 40 mg 04/10/20 21:00 04/12/20 20:39 Lipitor PO 40 mg HS DIDIER Administration Clonidine 0.1 mg 04/01/20 04:30 04/03/20 19:31 Catapres PO 0.1 mg BID PRN Administration SBP > 160 use second Ezetimibe 10 mg 04/02/20 09:00 04/13/20 10:39 Zetia PO Not Given DAILY DIDIER Guaifenesin 200 mg 04/05/20 13:08 04/07/20 20:37 Robitussin Sf PO 200 mg Q4H PRN Administration Cough Heparin Sodium (Porcine) 5,000 units 04/07/20 15:00 04/13/20 16:53 Heparin SC 5,000 units TID DIDIER Administration Hydralazine HCl 10 mg 04/01/20 04:30 04/03/20 00:18 Apresoline SLOW IVP 10 mg Q6H PRN Administration SBP GREATER THAN 160 Hydralazine HCl 50 mg 04/06/20 15:00 04/13/20 16:53 Apresoline PO 50 mg TID DIDIER Administration Piperacillin Sod/Tazobactam 100 mls @ 200 mls/hr 04/12/20 21:00 04/13/20 16: 52 Sod 2.25 gm/ Sodium Chloride IVPB 100 mls 0300,0900,1500,2100 DIDIER Administration Insulin Human Regular 0 units 04/01/20 04:32 04/09/20 18:06 Humulin R SC 4 unit .MILD SLIDING SCALE PRN Administration Mild Correctional Scale Insulin Human Regular 0 units 04/09/20 20:49 04/09/20 22:24 Humulin R SC 4 unit .BEDTIME SLIDING SC PRN Administration BEDTIME SLIDING SCALE Protocol Isosorbide Mononitrate 30 mg 04/04/20 09:00 04/13/20 10:39 Imdur Er PO Not Given DAILY ON LICENSE OF [facility] Labetalol HCl 20 mg 04/01/20 04:30 04/01/20 14:51 Normodyne SLOW IVP 4 ml Q4H PRN Administration SBP > 160 use third Metoclopramide HCl 10 mg 04/02/20 13:31 04/08/20 16:24 Reglan IVP 10 mg Q6H PRN Administration Nausea/Vomiting Metoprolol Tartrate 50 mg 04/01/20 09:00 04/13/20 10:39 Lopressor PO Not Given BID ON LICENSE OF [facility] Nitroglycerin 0.4 mg 04/02/20 12:41 04/02/20 13:11 Nitrostat SL 0.4 mg Q5MIN PRN Administration Chest Pain Pantoprazole Sodium 40 mg 04/10/20 21:00 04/12/20 20:39 Protonix PO 40 mg HS DIDIER Administration Polyethylene Glycol 17 gm 04/01/20 09:00 04/13/20 10:39 Miralax PO Not Given DAILY ON LICENSE OF [facility] Sodium Chloride 10 ml 04/01/20 04:32 04/08/20 20:09 Flush - Normal Saline IVF 10 ml PRN PRN Administration Saline Flush - Exam General Appearance: NAD General - other findings: drowsy Eye: PERRL, anicteric sclera ENT: normocephalic atraumatic, no oropharyngeal lesions Neck: no JVD Heart: RRR, no murmur, no gallops, no rubs Respiratory: CTAB, no wheezes, no rales, no ronchi Gastrointestinal: soft, non-tender, non-distended, normal bowel sounds Extremities: no cyanosis, no clubbing, no edema Skin: normal turgor, no lesions, no rashes Neurological: cranial nerve grossly intact, normal sensation to touch, no focal deficits, no new deficit Musculoskeletal: normal tone, normal strength, no muscle wasting Psychiatric: normal affect, normal behavior, not oriented Hosp A/P - Plan Chest Xray 04/10: minimal increased bronchovascular markings CT brain 04/10: extensive chronic microvascular ischemic disease This is 64 year old male with past medical history of CKD, hypertension, diabetes presenting with COVID pneumonia COVID positive with pneumonia - - Azithro d/c due to Prolonged QT interval - pt received 2 doses (04/01-04/02) - s/p 5 days of Rocephin - repeat chest Xray 04/10 shows no significant change - he has been weaned off oxygen Acute encephalopathy - possibly recurrent TIA vs metabolic encephalopathy vs gram negative bacteremia - has had recurrent unresponsive episodes, but no focal deficits. CT head normal, EKG and chest X ray unchanged - blood cultures 1/2 + for gram negative rods. On IV zosyn - repeat blood cultures are negative. - ammonia level normal - unable to do stroke workup since COVID + Anemia - Hb to, transfuse 2 units prbc and repeat CBC #Transaminitis #Hepatitis C - LFT trending down with reduced statin dose - hep B serology negative. Hep C positive - check hep C RNA Chest pain with indeterminant troponin - s/p heparin drip for five days. On plavix due to aspirin allergy - repeat troponin trending up x 3, but CKMB normal. Discussed with cardiology, no need for cath at this time given COVID + status. - repeat troponin normal Acute on Chronic kidney disease - improved volume status - continue dialysis M, W, F - creatinine 8.8 - patient Dysphagia - speech saw patient, recommended NPO - cionsider NG tube to see if he can tolerate tube feeds HTN - controlled -continue current meds DM - continue insulin sliding scale. Blood sugars in the 120's Dyslipidemia - continue statin and zetia Dispo: placement of catheter (dialysis) tomorrow
[2020-04-13] MEDS: Atorvastatin Calcium 40 MG TAB PO SCH (22:00)
[2020-04-13] MEDS: Amoxicillin/Potassium Clav 875 MG TAB PO SCH (22:00)
[2020-04-13] MEDS: Pantoprazole 40 MG GRANULES PACKET PO SCH (22:00)
[2020-04-14 08:56] LABS: Mean Corpuscular HGB CONC 33.4 g/dL (32.0-36.0); Mean Corpuscular Hemoglobin 28.7 pg (27.0-31.0); Mean Platelet Volume 7.7 fL (7.4-10.4); Platelet Count 223 thou/uL (130-400); RBC Distribution Width 13.2 % (11.5-14.5); Red Blood Cell (RBC) Count 3.83 mill/uL (4.70-6.10); White Blood Cell (WBC) Count 8.3 thou/uL (4.8-10.8)
--- NOTE | 2020-04-14 09:04 | RAD ---
Chest one view HISTORY: Central line placement. COMPARISON: 04/13/2020. FINDINGS: Cardiac silhouette is magnified and remains partially secured by parenchymal and pleural op acity at the right base that is similar in appearance to the prior study. Mediastinum is midline. Large caliber right internal jugular catheter remains in place. A new left internal jugular central venous catheter is in place with tip overlying the superior vena cava. No evidence of pneumothorax. Pulmonary vasculature upper limits of normal. IMPRESSION : Left internal jugular central venous catheter is in good radiographic position. Right pleural fluid, basilar atelectasis, and other findings are stable
[2020-04-14 09:27] LABS: ALT (SGPT) 31 U/L (8-55); AST (SGOT) 32 U/L (5-34); Albumin 2.9 g/dL (3.4-4.8); Alkaline Phosphatase 112 U/L (40-110); Anion Gap 16 mmol/L (10-20); BUN (Urea Nitrogen) 43 mg/dL (8.4-25.7); Bilirubin, Total 0.7 mg/dL (0.2-1.2); Calc. Creatinine Clearance 12 mL/min (70-130); Calcium 8.4 mg/dL (7.8-10.44); Carbon Dioxide 26 mmol/L (23-31); Chloride 99 mmol/L (98-107); Estimated GFR-MDRD 8; Globulin 3.8 g/dL (2.4-3.5); Glucose 118 mg/dL (80-115); Potassium 4.2 mmol/L (3.5-5.1); Protein, Total 6.7 g/dL (5.8-8.1); Sodium 137 mmol/L (136-145)
[2020-04-14] MEDS: Heparin 5,000 UNITS/ML VIAL SC SCH ×3 (10:50→20:52)
[2020-04-14] MEDS: hydrALAZINE 25 MG TAB PO SCH ×3 (10:54→20:51)
[2020-04-14] MEDS: Amoxicillin/Potassium Clav 875 MG TAB PO SCH ×2 (10:54→20:51)
[2020-04-14] MEDS: Polyethylene Glycol 3350 17 GM Packet PO SCH (10:54)
[2020-04-14] MEDS: Metoprolol Tartrate 50 MG TAB PO SCH ×2 (10:54→20:51)
[2020-04-14] MEDS: Ezetimibe 10 MG TAB PO SCH (10:54)
[2020-04-14] MEDS: Amlodipine 10 MG TAB PO SCH (10:55)
--- NOTE | 2020-04-14 13:33 | PRG ---
DATE OF SERVICE: 04/14/2020 SUBJECTIVE: The patient is on COVID isolation. OBJECTIVE: VITAL SIGNS: Temperature 97, pulse 70, respiratory rate , and blood pressure 163/86. LABORATORY DATA: Potassium 4.2, BUN is 43, and creatinine is 8.1. ASSESSMENT AND PLAN: 1. End-stage renal disease. Continue dialysis as tolerated, on TTS as tolerated. 2. COVID-19 infection. 3. Hypertension. 4. Anemia of chronic disease. 5. Edema, monitor fluid. Continue dialysis as tolerated. Job ID: [id number]
[2020-04-14] MEDS ORDERED: Clopidogrel Bisulfate 75 MG TAB PO SCH (15:30)
[2020-04-14 15:35] LABS: Hemoglobin 10.8 g/dL (14.0-18.0); Platelet Count 220 thou/uL (130-400)
--- NOTE | 2020-04-14 15:39 | OP ---
DATE OF PROCEDURE: 04/14/2020 PREOPERATIVE DIAGNOSES: 1. Recovering COVID illness. 2. Renal failure with cuffed tunneled dialysis catheter in place. 3. Dysphagia. 4. Malnutrition. 5. Poor IV access. POSTOPERATIVE DIAGNOSES: 1. Recovering COVID illness. 2. Renal failure with cuffed tunneled dialysis catheter in place. 3. Dysphagia. 4. Malnutrition. 5. Poor IV access. PROCEDURE PERFORMED: Left internal jugular triple-lumen catheter, ultrasound used. ANESTHESIA: 1% Xylocaine. DESCRIPTION OF PROCEDURE: At the patient's bedside in his room, using proper PPE, neck and chest were prepared with ChloraPrep and draped in routine fashion. Local anesthetic with 1% Xylocaine was infiltrated in the skin and subcutaneous tissue about the operative site. Using ultrasound guidance, the left internal jugular vein was cannulated with a trocar catheter, J-wire threaded, trocar catheter removed. Skin site enlarged sharply. Seldinger technique used to place a triple-lumen catheter, secured with 3-0 silk suture and J-wire removed. Each port aspirated blood, flushed with saline solution. Sterile dressing applied. The patient tolerated the procedure well. Job ID: [id number]
--- NOTE | 2020-04-14 17:17 | PDOC.HOSPP ---
- Subjective Encounter Date: 04/14/20 Encounter Time: 11:00 Subjective: The patient is more alert today and answers yes or no questions, however drowsy overall . He had his dialysis catheter in femoral area pulled this morning, central line placed this morning by Dr. Kinacid He ate all of his lunch per nursing staff, 1800 calories. Per nurse he did aspirate some. Speech saw him and recommended pureed diet - Objective Vital Signs & Weight: Vital Signs (12 hours) Temp Pulse Resp BP BP Pulse Ox 04/14/20 11:10 98.1 F 82 14 135/84 92 L 04/14/20 10:55 79 04/14/20 10:54 79 04/14/20 08:20 98.7 F 79 12 163/86 H 93 L Weight Admit Weight 199 lb 8 oz Weight 200 lb 2.876 oz I&O: 04/13/20 04/14/20 04/15/20 06:59 06:59 06:59 Intake Total 1485 270 300 Output Total 2600 Balance 1485 -2330 300 Result Diagrams: 04/14/20 15:22 04/14/20 08:31 Additional Labs: Accuchecks 04/14/20 04/14/20 04/13/20 11:08 05:10 22:00 POC Glucose 111 H 117 H 120 H 04/13/20 17:05 POC Glucose 187 H Hospitalist ROS - Medication Medications: Active Medications Generic Name Dose Route Start Last Admin Trade Name Freq PRN Reason Stop Dose Admin Acetaminophen 650 mg 04/01/20 04:29 04/02/20 18:25 Tylenol PO 650 mg Q4H PRN Administration Headache/Fever/Mild Pain (1-3) Amlodipine Besylate 10 mg 04/04/20 09:00 04/14/20 10:55 Norvasc PO 10 mg DAILY DIDIER Administration Amoxicillin/Clavulanate Potassium 875 mg 04/13/20 21:00 04/14/20 10:54 Augmentin PO 875 mg Q12HR DIDIER Administration Atorvastatin Calcium 40 mg 04/10/20 21:00 04/13/20 22:00 Lipitor PO 40 mg HS DIDIER Administration Clonidine 0.1 mg 04/01/20 04:30 04/03/20 19:31 Catapres PO 0.1 mg BID PRN Administration SBP > 160 use second Ezetimibe 10 mg 04/02/20 09:00 04/14/20 10:54 Zetia PO 10 mg DAILY DIDIER Administration Guaifenesin 200 mg 04/05/20 13:08 04/07/20 20:37 Robitussin Sf PO 200 mg Q4H PRN Administration Cough Heparin Sodium (Porcine) 5,000 units 04/07/20 15:00 04/14/20 10:50 Heparin SC 5,000 units TID DIDIER Administration Hydralazine HCl 10 mg 04/01/20 04:30 04/03/20 00:18 Apresoline SLOW IVP 10 mg Q6H PRN Administration SBP GREATER THAN 160 Hydralazine HCl 50 mg 04/06/20 15:00 04/14/20 10:54 Apresoline PO 50 mg TID DIDIER Administration Insulin Human Regular 0 units 04/01/20 04:32 04/09/20 18:06 Humulin R SC 4 unit .MILD SLIDING SCALE PRN Administration Mild Correctional Scale Insulin Human Regular 0 units 04/09/20 20:49 04/09/20 22:24 Humulin R SC 4 unit .BEDTIME SLIDING SC PRN Administration BEDTIME SLIDING SCALE Protocol Isosorbide Mononitrate 30 mg 04/04/20 09:00 04/14/20 10:55 Imdur Er PO 30 mg DAILY DIDIER Administration Labetalol HCl 20 mg 04/01/20 04:30 04/01/20 14:51 Normodyne SLOW IVP 4 ml Q4H PRN Administration SBP > 160 use third Metoclopramide HCl 10 mg 04/02/20 13:31 04/08/20 16:24 Reglan IVP 10 mg Q6H PRN Administration Nausea/Vomiting Metoprolol Tartrate 50 mg 04/01/20 09:00 04/14/20 10:54 Lopressor PO 50 mg BID DIDIER Administration Nitroglycerin 0.4 mg 04/02/20 12:41 04/02/20 13:11 Nitrostat SL 0.4 mg Q5MIN PRN Administration Chest Pain Pantoprazole Sodium 40 mg 04/10/20 21:00 04/13/20 22:00 Protonix PO 40 mg HS DIDIER Administration Polyethylene Glycol 17 gm 04/01/20 09:00 04/14/20 10:54 Miralax PO 17 gm DAILY DIDIER Administration Sodium Chloride 10 ml 04/01/20 04:32 04/14/20 10:55 Flush - Normal Saline IVF 10 ml PRN PRN Administration Saline Flush - Exam General Appearance: NAD, awake alert Eye: PERRL, anicteric sclera ENT: normocephalic atraumatic, no oropharyngeal lesions Neck: supple, symmetric, no JVD Heart: RRR, no murmur, no gallops, no rubs Respiratory: CTAB, no wheezes, no rales, no ronchi Gastrointestinal: soft, non-tender, non-distended, normal bowel sounds Extremities: no cyanosis, no clubbing, no edema Skin: normal turgor, no lesions, no rashes Hosp A/P - Plan Chest Xray 04/10: minimal increased bronchovascular markings CT brain 04/10: extensive chronic microvascular ischemic disease This is 64 year old male with past medical history of CKD, hypertension, diabetes presenting with COVID pneumonia COVID positive with pneumonia - - Azithro d/c due to Prolonged QT interval - pt received 2 doses (04/01-04/02) - s/p 5 days of Rocephin - repeat chest Xray 04/10 shows no significant change - he has been weaned off oxygen Acute encephalopathy - possibly recurrent TIA vs metabolic encephalopathy vs gram negative bacteremia - has had recurrent unresponsive episodes, but no focal deficits. CT head normal, EKG and chest X ray unchanged - blood cultures 1/2 + for gram negative rods. On IV zosyn - repeat blood cultures are negative. - ammonia level normal - unable to do stroke workup since COVID + Anemia - Hb 10, s/p 2 units of PRBC on 04/12 #Transaminitis #Hepatitis C - LFT trending down with reduced statin dose - hep B serology negative. Hep C positive. Hep C RNA pending Chest pain with indeterminant troponin- resolved - s/p heparin drip for five days. Continue plavix due to aspirin allergy - troponins were elevated, but repeat troponin 04/13 normal. No need for cath per cardiology ESRD - continue dialysis M, W, F Dysphagia - speech saw patient, advanced diet to puree and honey liquids HTN - controlled -continue current meds DM - continue insulin sliding scale. Blood sugars in the 120's Dyslipidemia - continue statin and zetia Dispo: will discuss with rehab vs home
[2020-04-14] MEDS: Insulin Regular 300 UNITS/3 ML VIAL SC PRN (18:01)
[2020-04-14] MEDS: Atorvastatin Calcium 40 MG TAB PO SCH (20:51)
[2020-04-14] MEDS: Pantoprazole 40 MG GRANULES PACKET PO SCH (20:52)
[2020-04-15 04:50] LABS: Anion Gap 14 mmol/L (10-20); BUN (Urea Nitrogen) 50 mg/dL (8.4-25.7); Calc. Creatinine Clearance 12 mL/min (70-130); Calcium 7.9 mg/dL (7.8-10.44); Carbon Dioxide 27 mmol/L (23-31); Chloride 103 mmol/L (98-107); Estimated GFR-MDRD 8; Glucose 117 mg/dL (80-115); Potassium 3.9 mmol/L (3.5-5.1); Sodium 140 mmol/L (136-145)
[2020-04-15] MEDS: Polyethylene Glycol 3350 17 GM Packet PO SCH (07:32)
[2020-04-15] MEDS: Heparin 5,000 UNITS/ML VIAL SC SCH ×3 (08:48→19:20)
[2020-04-15] MEDS: Amoxicillin/Potassium Clav 875 MG TAB PO SCH ×2 (08:49→19:19)
[2020-04-15] MEDS: Ezetimibe 10 MG TAB PO SCH (08:49)
[2020-04-15] MEDS: Clopidogrel Bisulfate 75 MG TAB PO SCH (08:49)
[2020-04-15] MEDS: Metoprolol Tartrate 50 MG TAB PO SCH ×2 (08:49→19:19)
[2020-04-15] MEDS: Amlodipine 10 MG TAB PO SCH (08:49)
[2020-04-15] MEDS: hydrALAZINE 25 MG TAB PO SCH ×3 (08:50→19:19)
[2020-04-15] MEDS: Insulin Regular 300 UNITS/3 ML VIAL SC PRN ×2 (11:13→17:49)
[2020-04-15] MEDS ORDERED: Heparin 10,000 UNITS/ 10 ML VIAL ONE (12:53)
--- NOTE | 2020-04-15 14:10 | PRG ---
DATE OF SERVICE: 04/15/2020 SUBJECTIVE: The patient is on COVID isolation. OBJECTIVE: VITAL SIGNS: Temperature 98.6, pulse 77, respiratory rate blood pressure 128/78. LABORATORY DATA: Potassium 3.9, BUN is 50, creatinine is 8.2. ASSESSMENT AND PLAN: 1. End-stage renal disease. Continue dialysis as tolerated. 2. COVID-19 infection. 3. Hypertension. 4. Anemia of chronic disease. 5. Edema. We will remove fluid with dialysis as tolerated. We will continue fluid removal. Continue dialysis if tolerated. Job ID: [id number]
--- NOTE | 2020-04-15 14:18 | PDOC.HOSPP ---
- Subjective Encounter Date: 04/15/20 Subjective: The patient is undergoing dialysis today. He does not have any new complaints. - Objective Vital Signs & Weight: Vital Signs (12 hours) Temp Pulse Resp BP Pulse Ox 04/15/20 11:31 98.6 F 77 16 128/78 100 04/15/20 08:52 98.4 F 93 18 152/83 H 100 04/15/20 08:24 99 04/15/20 04:22 98.6 F 79 14 132/79 99 Weight Admit Weight 199 lb 8 oz Weight 200 lb 9.6 oz I&O: 04/14/20 04/15/20 04/16/20 06:59 06:59 06:59 Intake Total 270 780 Output Total 2600 Balance -2330 780 Result Diagrams: 04/14/20 15:22 04/15/20 03:57 Additional Labs: Accuchecks 04/15/20 04/14/20 04/14/20 10:22 22:04 16:53 POC Glucose 227 H 202 H 278 H Hospitalist ROS - Medication Medications: Active Medications Generic Name Dose Route Start Last Admin Trade Name Freq PRN Reason Stop Dose Admin Acetaminophen 650 mg 04/01/20 04:29 04/02/20 18:25 Tylenol PO 650 mg Q4H PRN Administration Headache/Fever/Mild Pain (1-3) Amlodipine Besylate 10 mg 04/04/20 09:00 04/15/20 08:49 Norvasc PO 10 mg DAILY DIDIER Administration Amoxicillin/Clavulanate Potassium 875 mg 04/13/20 21:00 04/15/20 08:49 Augmentin PO 875 mg Q12HR DIDIER Administration Atorvastatin Calcium 40 mg 04/10/20 21:00 04/14/20 20:51 Lipitor PO 40 mg HS DIDIER Administration Clonidine 0.1 mg 04/01/20 04:30 04/03/20 19:31 Catapres PO 0.1 mg BID PRN Administration SBP > 160 use second Clopidogrel Bisulfate 75 mg 04/15/20 09:00 04/15/20 08:49 Plavix PO 75 mg DAILY DIDIER Administration Ezetimibe 10 mg 04/02/20 09:00 04/15/20 08:49 Zetia PO 10 mg DAILY DIDIER Administration Guaifenesin 200 mg 04/05/20 13:08 04/07/20 20:37 Robitussin Sf PO 200 mg Q4H PRN Administration Cough Heparin Sodium (Porcine) 5,000 units 04/07/20 15:00 04/15/20 08:48 Heparin SC 5,000 units TID DIDIER Administration Hydralazine HCl 10 mg 04/01/20 04:30 04/03/20 00:18 Apresoline SLOW IVP 10 mg Q6H PRN Administration SBP GREATER THAN 160 Hydralazine HCl 50 mg 04/06/20 15:00 04/15/20 08:50 Apresoline PO 50 mg TID DIDIER Administration Insulin Human Regular 0 units 04/01/20 04:32 04/15/20 11:13 Humulin R SC 3 unit .MILD SLIDING SCALE PRN Administration Mild Correctional Scale Insulin Human Regular 0 units 04/09/20 20:49 04/09/20 22:24 Humulin R SC 4 unit .BEDTIME SLIDING SC PRN Administration BEDTIME SLIDING SCALE Protocol Isosorbide Mononitrate 30 mg 04/04/20 09:00 04/15/20 08:49 Imdur Er PO 30 mg DAILY DIDIER Administration Labetalol HCl 20 mg 04/01/20 04:30 04/01/20 14:51 Normodyne SLOW IVP 4 ml Q4H PRN Administration SBP > 160 use third Metoclopramide HCl 10 mg 04/02/20 13:31 04/08/20 16:24 Reglan IVP 10 mg Q6H PRN Administration Nausea/Vomiting Metoprolol Tartrate 50 mg 04/01/20 09:00 04/15/20 08:49 Lopressor PO 50 mg BID DIDIER Administration Nitroglycerin 0.4 mg 04/02/20 12:41 04/02/20 13:11 Nitrostat SL 0.4 mg Q5MIN PRN Administration Chest Pain Pantoprazole Sodium 40 mg 04/10/20 21:00 04/14/20 20:52 Protonix PO 40 mg HS DIDIER Administration Polyethylene Glycol 17 gm 04/01/20 09:00 04/15/20 07:32 Miralax PO Not Given DAILY DIDIER Sodium Chloride 10 ml 04/01/20 04:32 04/15/20 08:51 Flush - Normal Saline IVF 10 ml PRN PRN Administration Saline Flush - Exam General Appearance: awake alert Neck: supple, no JVD Heart: RRR Respiratory: normal chest expansion, no tachypnea Extremities: no cyanosis, no clubbing Neurological: cranial nerve grossly intact, no focal deficits Hosp A/P - Plan 04/14: COVID positive with pneumonia - - Azithro d/c due to Prolonged QT interval - pt received 2 doses (04/01-04/02) - s/p 5 days of Rocephin - repeat chest Xray 04/10 shows no significant change - he has been weaned off oxygen Acute encephalopathy - possibly recurrent TIA vs metabolic encephalopathy vs gram negative bacteremia - has had recurrent unresponsive episodes, but no focal deficits. CT head normal, EKG and chest X ray unchanged - blood cultures 1/2 + for gram negative rods. On IV zosyn - repeat blood cultures are negative. - ammonia level normal - unable to do stroke workup since COVID + Anemia - Hb 10, s/p 2 units of PRBC on 04/12 #Transaminitis #Hepatitis C - LFT trending down with reduced statin dose - hep B serology negative. Hep C positive. Hep C RNA pending Chest pain with indeterminant troponin- resolved - s/p heparin drip for five days. Continue plavix due to aspirin allergy - troponins were elevated, but repeat troponin 04/13 normal. No need for cath per cardiology ESRD - continue dialysis M, W, F Dysphagia - speech saw patient, advanced diet to puree and honey liquids HTN - controlled -continue current meds DM - continue insulin sliding scale. Blood sugars in the 120's Dyslipidemia 04/15: The patient is tolerating dialysis well. No evidence of hypoxia or respiratory distress. He is clinically stable for discharge pending placement. Repeat COVID-19 test will be done today. If negative, that will assist in placing the patient.
[2020-04-15] MEDS: Atorvastatin Calcium 40 MG TAB PO SCH (19:19)
[2020-04-15] MEDS: Pantoprazole 40 MG GRANULES PACKET PO SCH (19:19)
[2020-04-16] MEDS: Ezetimibe 10 MG TAB PO SCH (09:10)
[2020-04-16] MEDS: Metoprolol Tartrate 50 MG TAB PO SCH ×2 (09:10→20:31)
[2020-04-16] MEDS: Amoxicillin/Potassium Clav 875 MG TAB PO SCH ×2 (09:10→20:31)
[2020-04-16] MEDS: Heparin 5,000 UNITS/ML VIAL SC SCH ×3 (09:11→20:32)
[2020-04-16] MEDS: Amlodipine 10 MG TAB PO SCH (09:11)
[2020-04-16] MEDS: hydrALAZINE 25 MG TAB PO SCH ×3 (09:11→20:31)
[2020-04-16] MEDS: Clopidogrel Bisulfate 75 MG TAB PO SCH (09:11)
[2020-04-16] MEDS: Polyethylene Glycol 3350 17 GM Packet PO SCH (10:11)
--- NOTE | 2020-04-16 10:41 | PDOC.HOSPP ---
- Subjective Encounter Date: 04/16/20 Subjective: No new complains - Objective Vital Signs & Weight: Vital Signs (12 hours) Temp Pulse Resp BP BP BP Pulse Ox 04/16/20 09:15 98.3 F 83 16 172/95 H 98 04/16/20 04:15 98.5 F 88 18 136/79 97 04/16/20 00:00 98.9 F 86 18 150/83 H 100 Weight Admit Weight 199 lb 8 oz Weight 200 lb 9.6 oz I&O: 04/15/20 04/16/20 04/17/20 06:59 06:59 06:59 Intake Total 780 920 Balance 780 920 Result Diagrams: 04/14/20 15:22 04/15/20 03:57 Additional Labs: Accuchecks 04/16/20 04/15/20 04/15/20 04:12 19:33 16:44 POC Glucose 115 H 163 H 202 H 04/15/20 10:22 POC Glucose 227 H Hospitalist ROS - Medication Medications: Active Medications Generic Name Dose Route Start Last Admin Trade Name Freq PRN Reason Stop Dose Admin Acetaminophen 650 mg 04/01/20 04:29 04/02/20 18:25 Tylenol PO 650 mg Q4H PRN Administration Headache/Fever/Mild Pain (1-3) Amlodipine Besylate 10 mg 04/04/20 09:00 04/16/20 09:11 Norvasc PO 10 mg DAILY DIDIER Administration Amoxicillin/Clavulanate Potassium 875 mg 04/13/20 21:00 04/16/20 09:10 Augmentin PO 875 mg Q12HR DIDIER Administration Atorvastatin Calcium 40 mg 04/10/20 21:00 04/15/20 19:19 Lipitor PO 40 mg HS DIDIER Administration Clonidine 0.1 mg 04/01/20 04:30 04/03/20 19:31 Catapres PO 0.1 mg BID PRN Administration SBP > 160 use second Clopidogrel Bisulfate 75 mg 04/15/20 09:00 04/16/20 09:11 Plavix PO 75 mg DAILY DIDIER Administration Ezetimibe 10 mg 04/02/20 09:00 04/16/20 09:10 Zetia PO 10 mg DAILY DIDIER Administration Guaifenesin 200 mg 04/05/20 13:08 04/07/20 20:37 Robitussin Sf PO 200 mg Q4H PRN Administration Cough Heparin Sodium (Porcine) 5,000 units 04/07/20 15:00 04/16/20 09:11 Heparin SC 5,000 units TID DIDIER Administration Hydralazine HCl 10 mg 04/01/20 04:30 04/03/20 00:18 Apresoline SLOW IVP 10 mg Q6H PRN Administration SBP GREATER THAN 160 Hydralazine HCl 50 mg 04/06/20 15:00 04/16/20 09:11 Apresoline PO 50 mg TID DIDIER Administration Insulin Human Regular 0 units 04/01/20 04:32 04/15/20 17:49 Humulin R SC 3 unit .MILD SLIDING SCALE PRN Administration Mild Correctional Scale Insulin Human Regular 0 units 04/09/20 20:49 04/09/20 22:24 Humulin R SC 4 unit .BEDTIME SLIDING SC PRN Administration BEDTIME SLIDING SCALE Protocol Isosorbide Mononitrate 30 mg 04/04/20 09:00 04/16/20 09:11 Imdur Er PO 30 mg DAILY DIDIER Administration Labetalol HCl 20 mg 04/01/20 04:30 04/01/20 14:51 Normodyne SLOW IVP 4 ml Q4H PRN Administration SBP > 160 use third Metoclopramide HCl 10 mg 04/02/20 13:31 04/08/20 16:24 Reglan IVP 10 mg Q6H PRN Administration Nausea/Vomiting Metoprolol Tartrate 50 mg 04/01/20 09:00 04/16/20 09:10 Lopressor PO 50 mg BID DIDIER Administration Nitroglycerin 0.4 mg 04/02/20 12:41 04/02/20 13:11 Nitrostat SL 0.4 mg Q5MIN PRN Administration Chest Pain Pantoprazole Sodium 40 mg 04/10/20 21:00 04/15/20 19:19 Protonix PO 40 mg HS DIDIER Administration Polyethylene Glycol 17 gm 04/01/20 09:00 04/16/20 10:11 Miralax PO Not Given DAILY DIDIER Sodium Chloride 10 ml 04/01/20 04:32 04/15/20 08:51 Flush - Normal Saline IVF 10 ml PRN PRN Administration Saline Flush - Exam General Appearance: awake alert ENT: normocephalic atraumatic Neck: supple Respiratory: normal chest expansion, no tachypnea Neurological: cranial nerve grossly intact, no focal deficits Hosp A/P - Plan 04/14: COVID positive with pneumonia - - Azithro d/c due to Prolonged QT interval - pt received 2 doses (04/01-04/02) - s/p 5 days of Rocephin - repeat chest Xray 04/10 shows no significant change - he has been weaned off oxygen Acute encephalopathy - possibly recurrent TIA vs metabolic encephalopathy vs gram negative bacteremia - has had recurrent unresponsive episodes, but no focal deficits. CT head normal, EKG and chest X ray unchanged - blood cultures 1/2 + for gram negative rods. On IV zosyn - repeat blood cultures are negative. - ammonia level normal - unable to do stroke workup since COVID + Anemia - Hb 10, s/p 2 units of PRBC on 04/12 #Transaminitis #Hepatitis C - LFT trending down with reduced statin dose - hep B serology negative. Hep C positive. Hep C RNA pending Chest pain with indeterminant troponin- resolved - s/p heparin drip for five days. Continue plavix due to aspirin allergy - troponins were elevated, but repeat troponin 04/13 normal. No need for cath per cardiology ESRD - continue dialysis M, W, F Dysphagia - speech saw patient, advanced diet to puree and honey liquids HTN - controlled -continue current meds DM - continue insulin sliding scale. Blood sugars in the 120's Dyslipidemia 04/16: Continue HD on TTS. No evidence of hypoxia or respiratory distress. He is clinically stable for discharge pending placement. Repeat COVID-19 test will be done today. If negative, that will assist in placing the patient.
[2020-04-16 12:36] LABS: SARS-CoV-2 MS2 Positive; SARS-CoV-2 N Gene Positive; SARS-CoV-2 S Gene Positive; SARS-CoV-2 orf1ab Positive
--- NOTE | 2020-04-16 12:48 | PRG ---
DATE OF SERVICE: 04/16/2020 SUBJECTIVE: The patient is on COVID isolation. OBJECTIVE: VITAL SIGNS: Temperature 98.3, pulse 83, respiratory rate 16, blood pressure 136/79, oxygen saturation 98% on room air. LABORATORY DATA: Not done today. ASSESSMENT AND PLAN: 1. End-stage renal disease. Continue dialysis as tolerated on Friday, Friday, and Friday. 2. COVID-19 infection. 3. Hypertension. 4. Anemia of chronic disease. 5. Edema. We will remove fluid. 6. Continue dialysis on Friday, Friday, and Friday as tolerated. Job ID: [id number]
[2020-04-16] MEDS: Insulin Regular 300 UNITS/3 ML VIAL SC PRN ×3 (13:05→20:57)
[2020-04-16 15:55] LABS: Hemoglobin 10.6 g/dL (14.0-18.0); Platelet Count 216 thou/uL (130-400)
[2020-04-16] MEDS: Pantoprazole 40 MG GRANULES PACKET PO SCH (20:31)
[2020-04-16] MEDS: Atorvastatin Calcium 40 MG TAB PO SCH (20:31)
[2020-04-17 05:24] LABS: Anion Gap 13 mmol/L (10-20); BUN (Urea Nitrogen) 42 mg/dL (8.4-25.7); Calc. Creatinine Clearance 14 mL/min (70-130); Calcium 8.2 mg/dL (7.8-10.44); Carbon Dioxide 28 mmol/L (23-31); Chloride 101 mmol/L (98-107); Estimated GFR-MDRD 10; Glucose 121 mg/dL (80-115); Sodium 138 mmol/L (136-145)
[2020-04-17] MEDS: Ezetimibe 10 MG TAB PO SCH (07:23)
[2020-04-17] MEDS: Heparin 5,000 UNITS/ML VIAL SC SCH ×3 (07:24→19:38)
[2020-04-17] MEDS: hydrALAZINE 25 MG TAB PO SCH ×3 (07:24→19:37)
[2020-04-17] MEDS: Amoxicillin/Potassium Clav 875 MG TAB PO SCH ×2 (07:24→19:38)
[2020-04-17] MEDS: Clopidogrel Bisulfate 75 MG TAB PO SCH (07:24)
[2020-04-17] MEDS: Metoprolol Tartrate 50 MG TAB PO SCH ×2 (07:24→19:38)
[2020-04-17] MEDS: Amlodipine 10 MG TAB PO SCH (07:24)
[2020-04-17] MEDS: Polyethylene Glycol 3350 17 GM Packet PO SCH (07:25)
--- NOTE | 2020-04-17 11:32 | PRG ---
DATE OF SERVICE: 04/17/2020 SUBJECTIVE: A 64-year-old gentleman being seen for end-stage kidney disease. The patient denied nausea, vomiting, or chest pain. OBJECTIVE: GENERAL: On exam, the patient is awake and alert. VITAL SIGNS: Afebrile, pulse 75, breathing at 16, and blood pressure 141/77. HEENT: Head normocephalic and atraumatic. Eyes intact, no ulcers. Nose intact, no ulcers. Ears intact, no ulcers. NECK: Supple. No JVD. CHEST: Symmetrical and clear. CARDIOVASCULAR: Shows S1 and S2, no rub, no murmur. GASTROINTESTINAL: Abdomen is soft, bowel sounds positive. EXTREMITIES: Show no edema or ulcers. SKIN: Shows no rash or petechiae. MUSCULOSKELETAL: Shows no joint swelling or stiffness. GENITOURINARY: Shows no Waterman or CVA tenderness. NEUROLOGIC: Motor intact. Cranial nerves intact. LABORATORY DATA: Reviewed. ASSESSMENT AND PLAN: 1. Stage 6 chronic kidney disease. Plan dialysis. 2. Hypertension, stable. 3. Anemia, stable. 4. Medications based on glomerular filtration rate are appropriate. Job ID: [id number]
[2020-04-17] MEDS: Insulin Regular 300 UNITS/3 ML VIAL SC PRN ×3 (11:35→20:10)
--- NOTE | 2020-04-17 15:30 | PDOC.HOSPP ---
- Subjective Encounter Date: 04/17/20 - Objective Vital Signs & Weight: Vital Signs (12 hours) Temp Pulse Resp BP BP Pulse Ox 04/17/20 11:50 98.1 F 73 12 133/77 100 04/17/20 07:45 98.3 F 86 12 160/78 H 100 04/17/20 04:35 98.5 F 81 16 141/77 H 95 Weight Admit Weight 199 lb 8 oz Weight 198 lb 6.4 oz I&O: 04/16/20 04/17/20 04/18/20 06:59 06:59 06:59 Intake Total 920 1210 Balance 920 1210 Result Diagrams: 04/16/20 15:26 04/17/20 04:48 Additional Labs: Accuchecks 04/17/20 04/16/20 04/16/20 11:36 20:44 15:47 POC Glucose 178 H 263 H 250 H Hospitalist ROS - Medication Medications: Active Medications Generic Name Dose Route Start Last Admin Trade Name Freq PRN Reason Stop Dose Admin Acetaminophen 650 mg 04/01/20 04:29 04/02/20 18:25 Tylenol PO 650 mg Q4H PRN Administration Headache/Fever/Mild Pain (1-3) Amlodipine Besylate 10 mg 04/04/20 09:00 04/17/20 07:24 Norvasc PO 10 mg DAILY DIDIER Administration Amoxicillin/Clavulanate Potassium 875 mg 04/13/20 21:00 04/17/20 07:24 Augmentin PO 875 mg Q12HR DIDIER Administration Atorvastatin Calcium 40 mg 04/10/20 21:00 04/16/20 20:31 Lipitor PO 40 mg HS DIDIER Administration Clonidine 0.1 mg 04/01/20 04:30 04/03/20 19:31 Catapres PO 0.1 mg BID PRN Administration SBP > 160 use second Clopidogrel Bisulfate 75 mg 04/15/20 09:00 04/17/20 07:24 Plavix PO 75 mg DAILY DIDIER Administration Ezetimibe 10 mg 04/02/20 09:00 04/17/20 07:23 Zetia PO 10 mg DAILY DIDIER Administration Guaifenesin 200 mg 04/05/20 13:08 04/07/20 20:37 Robitussin Sf PO 200 mg Q4H PRN Administration Cough Heparin Sodium (Porcine) 5,000 units 04/07/20 15:00 04/17/20 07:24 Heparin SC 5,000 units TID DIDIER Administration Hydralazine HCl 10 mg 04/01/20 04:30 04/03/20 00:18 Apresoline SLOW IVP 10 mg Q6H PRN Administration SBP GREATER THAN 160 Hydralazine HCl 50 mg 04/06/20 15:00 04/17/20 07:24 Apresoline PO 50 mg TID DIDIER Administration Insulin Human Regular 0 units 04/01/20 04:32 04/17/20 11:35 Humulin R SC 2 unit .MILD SLIDING SCALE PRN Administration Mild Correctional Scale Insulin Human Regular 0 units 04/09/20 20:49 04/16/20 20:57 Humulin R SC 3 unit .BEDTIME SLIDING SC PRN Administration BEDTIME SLIDING SCALE Protocol Isosorbide Mononitrate 30 mg 04/04/20 09:00 04/17/20 07:24 Imdur Er PO 30 mg DAILY DIDIER Administration Labetalol HCl 20 mg 04/01/20 04:30 04/01/20 14:51 Normodyne SLOW IVP 4 ml Q4H PRN Administration SBP > 160 use third Metoclopramide HCl 10 mg 04/02/20 13:31 04/08/20 16:24 Reglan IVP 10 mg Q6H PRN Administration Nausea/Vomiting Metoprolol Tartrate 50 mg 04/01/20 09:00 04/17/20 07:24 Lopressor PO 50 mg BID DIDIER Administration Nitroglycerin 0.4 mg 04/02/20 12:41 04/02/20 13:11 Nitrostat SL 0.4 mg Q5MIN PRN Administration Chest Pain Pantoprazole Sodium 40 mg 04/10/20 21:00 04/16/20 20:31 Protonix PO 40 mg HS DIDIER Administration Polyethylene Glycol 17 gm 04/01/20 09:00 04/17/20 07:25 Miralax PO Not Given DAILY DIDIER Sodium Chloride 10 ml 04/01/20 04:32 04/15/20 08:51 Flush - Normal Saline IVF 10 ml PRN PRN Administration Saline Flush - Exam General Appearance: awake alert Neck: supple Heart: RRR Respiratory: normal chest expansion, no tachypnea Gastrointestinal: soft Neurological: cranial nerve grossly intact Hosp A/P - Plan 04/14: COVID positive with pneumonia - - Azithro d/c due to Prolonged QT interval - pt received 2 doses (04/01-04/02) - s/p 5 days of Rocephin - repeat chest Xray 04/10 shows no significant change - he has been weaned off oxygen Acute encephalopathy - possibly recurrent TIA vs metabolic encephalopathy vs gram negative bacteremia - has had recurrent unresponsive episodes, but no focal deficits. CT head normal, EKG and chest X ray unchanged - blood cultures 1/2 + for gram negative rods. On IV zosyn - repeat blood cultures are negative. - ammonia level normal - unable to do stroke workup since COVID + Anemia - Hb 10, s/p 2 units of PRBC on 04/12 #Transaminitis #Hepatitis C - LFT trending down with reduced statin dose - hep B serology negative. Hep C positive. Hep C RNA pending Chest pain with indeterminant troponin- resolved - s/p heparin drip for five days. Continue plavix due to aspirin allergy - troponins were elevated, but repeat troponin 04/13 normal. No need for cath per cardiology ESRD - continue dialysis M, W, F Dysphagia - speech saw patient, advanced diet to puree and honey liquids HTN - controlled -continue current meds DM - continue insulin sliding scale. Blood sugars in the 120's Dyslipidemia 04/17: Continue HD on TTS. No evidence of hypoxia or respiratory distress. He is clinically stable for discharge pending placement. Repeat COVID-19 test will be done today. If negative, that will assist in placing the patient.
[2020-04-17] MEDS: Atorvastatin Calcium 40 MG TAB PO SCH (19:38)
[2020-04-17] MEDS: Pantoprazole 40 MG GRANULES PACKET PO SCH (19:38)
[2020-04-18] MEDS: Heparin 5,000 UNITS/ML VIAL SC SCH ×3 (07:54→19:44)
[2020-04-18] MEDS: Metoprolol Tartrate 50 MG TAB PO SCH ×2 (07:55→19:44)
[2020-04-18] MEDS: hydrALAZINE 25 MG TAB PO SCH ×4 (07:55→20:40)
[2020-04-18] MEDS: Ezetimibe 10 MG TAB PO SCH (07:55)
[2020-04-18] MEDS: Amoxicillin/Potassium Clav 875 MG TAB PO SCH (07:55)
[2020-04-18] MEDS: Clopidogrel Bisulfate 75 MG TAB PO SCH (07:55)
[2020-04-18] MEDS: Amlodipine 10 MG TAB PO SCH (07:57)
[2020-04-18] MEDS ORDERED: Heparin 10,000 UNITS/ 10 ML VIAL ONE (09:17)
--- NOTE | 2020-04-18 11:16 | PQF ---
CLINICAL DOCUMENTATION IMPROVEMENT CLARIFICATION FORM: ICD-10 Updated PLEASE DO AN ADDENDUM TO THE PROGRESS NOTE WITH ANY DOCUMENTATION UPDATES OR ADDITIONS AND CARRY THROUGH TO DC SUMMARY. THANK YOU. DATE: 04/18/2020;04/19/2020 ATTN : Dr. White Please exercise your independent, professional judgment in responding to the clarification form. Clinical indicators are provided on the bottom of this form for your review Please check appropriate box(s) to clarify if the following diagnosis has been ruled in or ruled out: Sepsis [ >] Ruled in diagnosis [ ] Continue to treat [ ] Resolved [ ] Ruled out diagnosis [ ] Improving [ ] Cannot rule out diagnosis [ ] Other diagnosis [ ] Unable to determine In addition, please specify: Present on Admission (POA): [ >] Yes [ ] No [ ] Unable to determine For continuity of documentation, please document condition throughout progress notes and discharge summary. Thank You. CLINICAL INDICATORS - SIGNS / SYMPTOMS / LABS / RESULTS AND LOCATION IN MR ER Record 04/01: VS pulse 96, Resp. 20, Temp. 100.3 BP 197/131 H&P 04/01: LAB: WBC 4.0 A/P: acute renal failure on CKD 4 - baseline Cr in 2-3 range, now 6.13, possibly secondary to uncontrolled HTN vs sepsis abdominal pain, borderline febrile , concern for developing sepsis 04/01 ([facility]) Acute kidney injury on CKD, stage 3. 04/04 (Gu[facility]) COVID positive with pneumonia 04/10 ([facility]asudev) End-stage renal disease 04/12 ([facility]) Acute encephalopathy - possibly recurrent TIA vs metabolic encephalopathy vs gram negative bacteremia RISKS: H&P 04/01: PMH HTN, CKD . 04/03 ([facility]) COVID-19. Acute on chronic renal failure. Pneumonia. DM 2. TREATMENT: Order 04/01- 04/05: Rocephin IV q 24 hr Order 04/02-04/03: NS IV 100mls/hr 04/12([facility]) Will add IV zosyn Thank you, Liya (This form is maintained as a part of the permanent medical record) 2015 [employer] All Rights Reserved Liya Salvador RN, BSN [email or web address] [employer] [facility]
--- NOTE | 2020-04-18 11:42 | PRG ---
DATE OF SERVICE: SUBJECTIVE: A 64-year-old gentleman, being seen for end-stage kidney disease. The patient denied nausea, vomiting, or chest pain. OBJECTIVE: General: The patient is awake and alert. Vital Signs: Afebrile, pulse 75, breathing at 16, blood pressure 147/79. HEENT: Head normocephalic and atraumatic. Eyes intact, no ulcers. Nose intact, no ulcers. Ears intact, no ulcers. Neck: Supple. No JVD. Chest: Symmetrical and clear. Cardiovascular: Shows S1 and S2, no rub, no murmur. Gastrointestinal: Abdomen is soft, bowel sounds positive. Extremities: Show no edema or ulcers. Skin: Shows no rash or petechiae. Musculoskeletal: Shows no joint swelling or stiffness. Genitourinary: Shows no Waterman or CVA tenderness. Neurologic: Motor intact. Cranial nerves intact. LABORATORY DATA: Reviewed. ASSESSMENT AND PLAN: 1. Stage 6 chronic kidney disease, plan dialysis. 2. Hypertension, stable. 3. Anemia, stable. Medication based on GFR appropriate. Job ID: [id number]
[2020-04-18] MEDS: Insulin Regular 300 UNITS/3 ML VIAL SC PRN ×2 (12:48→20:38)
[2020-04-18 13:15] LABS: Hep C PCR-Quant HCV Not Detected IU/mL (.)
--- NOTE | 2020-04-18 14:29 | PDOC.HOSPP ---
- Subjective Encounter Date: 04/18/20 Subjective: The patient has no new complaints today. - Objective Vital Signs & Weight: Vital Signs (12 hours) Temp Pulse Resp BP BP BP Pulse Ox 04/18/20 12:40 97.8 F 76 13 134/80 92 L 04/18/20 08:10 98.7 F 89 15 146/90 H 99 04/18/20 04:15 98.8 F 86 20 147/79 H 99 Weight Admit Weight 199 lb 8 oz Weight 199 lb 1.6 oz I&O: 04/17/20 04/18/20 04/19/20 06:59 06:59 06:59 Intake Total 1210 1200 408 Balance 1210 1200 408 Result Diagrams: 04/16/20 15:26 04/17/20 04:48 Additional Labs: Accuchecks 04/18/20 04/18/20 04/17/20 10:26 05:15 19:46 POC Glucose 198 H 149 H 315 H 04/17/20 16:03 POC Glucose 294 H Hospitalist ROS - Medication Medications: Active Medications Generic Name Dose Route Start Last Admin Trade Name Freq PRN Reason Stop Dose Admin Acetaminophen 650 mg 04/01/20 04:29 04/02/20 18:25 Tylenol PO 650 mg Q4H PRN Administration Headache/Fever/Mild Pain (1-3) Amlodipine Besylate 10 mg 04/04/20 09:00 04/18/20 07:57 Norvasc PO 10 mg DAILY DIDIER Administration Atorvastatin Calcium 40 mg 04/10/20 21:00 04/17/20 19:38 Lipitor PO 40 mg HS DIDIER Administration Clonidine 0.1 mg 04/01/20 04:30 04/03/20 19:31 Catapres PO 0.1 mg BID PRN Administration SBP > 160 use second Clopidogrel Bisulfate 75 mg 04/15/20 09:00 04/18/20 07:55 Plavix PO 75 mg DAILY DIDIER Administration Ezetimibe 10 mg 04/02/20 09:00 04/18/20 07:55 Zetia PO 10 mg DAILY DIDIER Administration Guaifenesin 200 mg 04/05/20 13:08 04/07/20 20:37 Robitussin Sf PO 200 mg Q4H PRN Administration Cough Heparin Sodium (Porcine) 5,000 units 04/07/20 15:00 04/18/20 07:54 Heparin SC 5,000 units TID DIDIER Administration Hydralazine HCl 10 mg 04/01/20 04:30 04/03/20 00:18 Apresoline SLOW IVP 10 mg Q6H PRN Administration SBP GREATER THAN 160 Hydralazine HCl 50 mg 04/06/20 15:00 04/18/20 07:55 Apresoline PO 50 mg TID DIDIER Administration Insulin Human Regular 0 units 04/01/20 04:32 04/18/20 12:48 Humulin R SC 2 unit .MILD SLIDING SCALE PRN Administration Mild Correctional Scale Insulin Human Regular 0 units 04/09/20 20:49 04/17/20 20:10 Humulin R SC 4 unit .BEDTIME SLIDING SC PRN Administration BEDTIME SLIDING SCALE Protocol Isosorbide Mononitrate 30 mg 04/04/20 09:00 04/17/20 07:24 Imdur Er PO 30 mg DAILY DIDIER Administration Labetalol HCl 20 mg 04/01/20 04:30 04/01/20 14:51 Normodyne SLOW IVP 4 ml Q4H PRN Administration SBP > 160 use third Metoclopramide HCl 10 mg 04/02/20 13:31 04/08/20 16:24 Reglan IVP 10 mg Q6H PRN Administration Nausea/Vomiting Metoprolol Tartrate 50 mg 04/01/20 09:00 04/18/20 07:55 Lopressor PO 50 mg BID DIDIER Administration Nitroglycerin 0.4 mg 04/02/20 12:41 04/02/20 13:11 Nitrostat SL 0.4 mg Q5MIN PRN Administration Chest Pain Pantoprazole Sodium 40 mg 04/10/20 21:00 04/17/20 19:38 Protonix PO 40 mg HS DIDIER Administration Polyethylene Glycol 17 gm 04/01/20 09:00 04/17/20 07:25 Miralax PO Not Given DAILY DIDIER Sodium Chloride 10 ml 04/01/20 04:32 04/15/20 08:51 Flush - Normal Saline IVF 10 ml PRN PRN Administration Saline Flush - Exam General Appearance: awake alert ENT: normocephalic atraumatic Neck: supple Heart: RRR Respiratory: normal chest expansion, no tachypnea Neurological: cranial nerve grossly intact, no focal deficits Hosp A/P - Plan 04/14: COVID positive with pneumonia - - Azithro d/c due to Prolonged QT interval - pt received 2 doses (04/01-04/02) - s/p 5 days of Rocephin - repeat chest Xray 04/10 shows no significant change - he has been weaned off oxygen Acute encephalopathy - possibly recurrent TIA vs metabolic encephalopathy vs gram negative bacteremia - has had recurrent unresponsive episodes, but no focal deficits. CT head normal, EKG and chest X ray unchanged - blood cultures 1/2 + for gram negative rods. On IV zosyn - repeat blood cultures are negative. - ammonia level normal - unable to do stroke workup since COVID + Anemia - Hb 10, s/p 2 units of PRBC on 04/12 #Transaminitis #Hepatitis C - LFT trending down with reduced statin dose - hep B serology negative. Hep C positive. Hep C RNA pending Chest pain with indeterminant troponin- resolved - s/p heparin drip for five days. Continue plavix due to aspirin allergy - troponins were elevated, but repeat troponin 04/13 normal. No need for cath per cardiology ESRD - continue dialysis M, W, F Dysphagia - speech saw patient, advanced diet to puree and honey liquids HTN - controlled -continue current meds DM - continue insulin sliding scale. Blood sugars in the 120's Dyslipidemia 04/18: No new events. Continue HD on TTS. No evidence of hypoxia or respiratory distress. He is clinically stable for discharge pending placement. Repeat COVID-19 test will be done today. If negative, that will assist in placing the patient.
[2020-04-18] MEDS ORDERED: Isosorbide Dinitrate 20 MG TAB PO SCH (14:45)
[2020-04-18] MEDS: Polyethylene Glycol 3350 17 GM Packet PO SCH (15:24)
[2020-04-18 15:45] LABS: Hemoglobin 10.8 g/dL (14.0-18.0); Platelet Count 209 thou/uL (130-400)
[2020-04-18] MEDS: Pantoprazole 40 MG GRANULES PACKET PO SCH (19:43)
[2020-04-18] MEDS: Atorvastatin Calcium 40 MG TAB PO SCH (19:43)
[2020-04-18] MEDS: Isosorbide Dinitrate 20 MG TAB PO SCH (19:44)
[2020-04-19] MEDS: hydrALAZINE 25 MG TAB PO SCH ×3 (08:53→21:45)
[2020-04-19] MEDS: Clopidogrel Bisulfate 75 MG TAB PO SCH (08:53)
[2020-04-19] MEDS: Ezetimibe 10 MG TAB PO SCH (08:53)
[2020-04-19] MEDS: Amlodipine 10 MG TAB PO SCH (08:53)
[2020-04-19] MEDS: Heparin 5,000 UNITS/ML VIAL SC SCH ×3 (08:53→21:45)
[2020-04-19] MEDS: Isosorbide Dinitrate 20 MG TAB PO SCH ×2 (08:53→21:44)
[2020-04-19] MEDS: Metoprolol Tartrate 50 MG TAB PO SCH ×2 (08:53→21:45)
[2020-04-19] MEDS: Polyethylene Glycol 3350 17 GM Packet PO SCH (08:55)
--- NOTE | 2020-04-19 13:46 | PRG ---
DATE OF SERVICE: 04/19/2020 SUBJECTIVE: A 64-year-old gentleman, being seen for end-stage renal disease. The patient denied nausea, vomiting, or chest pain. OBJECTIVE: General: The patient is resting. Vital signs: Pulse 77, breathing 16, blood pressure 130/70. HEENT: Head normocephalic and atraumatic. Eyes intact, no ulcers. Nose intact, no ulcers. Ears intact, no ulcers. Neck: Supple. No JVD. Chest: Symmetrical and clear. Cardiovascular: Shows S1 and S2, no rub, no murmur. Gastrointestinal: Abdomen is soft, bowel sounds positive. Extremities: Show no edema or ulcers. Skin: Shows no rash or petechiae. Musculoskeletal: Shows no joint swelling or stiffness. Genitourinary: Shows no Waterman or CVA tenderness. Neurologic: Motor intact. Cranial nerves intact. LABORATORY DATA: Reviewed. ASSESSMENT AND PLAN: 1. Stage 6 chronic kidney disease. Continue hemodialysis. 2. Hypertension, stable. 3. Anemia, stable. 4. Medication based on GFR appropriate. Job ID: [id number]
[2020-04-19 14:09] VITALS: BMI 31.2
[2020-04-19] MEDS: Atorvastatin Calcium 40 MG TAB PO SCH (21:45)
[2020-04-19] MEDS: Pantoprazole 40 MG GRANULES PACKET PO SCH (21:45)
[2020-04-19] MEDS: Insulin Regular 300 UNITS/3 ML VIAL SC PRN (21:51)
[2020-04-20] MEDS: hydrALAZINE 25 MG TAB PO SCH ×3 (08:54→22:56)
[2020-04-20] MEDS: Ezetimibe 10 MG TAB PO SCH (08:54)
[2020-04-20] MEDS: Metoprolol Tartrate 50 MG TAB PO SCH ×2 (08:55→22:56)
[2020-04-20] MEDS: Isosorbide Dinitrate 20 MG TAB PO SCH ×2 (08:55→22:57)
[2020-04-20] MEDS: Heparin 5,000 UNITS/ML VIAL SC SCH ×3 (08:55→22:55)
[2020-04-20] MEDS: Amlodipine 10 MG TAB PO SCH (08:55)
[2020-04-20] MEDS: Clopidogrel Bisulfate 75 MG TAB PO SCH (08:55)
[2020-04-20] MEDS: Polyethylene Glycol 3350 17 GM Packet PO SCH (10:15)
--- NOTE | 2020-04-20 11:37 | PRG ---
DATE OF SERVICE: 04/20/2020 SUBJECTIVE: A 64-year-old male, being seen for end-stage renal disease. The patient reported no issues. PHYSICAL EXAMINATION: On exam, the patient is resting. General: The patient is awake and alert. Vital Signs: Afebrile, pulse 75, breathing at 16, blood pressure 136/78. HEENT: Head normocephalic and atraumatic. Eyes intact, no ulcers. Nose intact, no ulcers. Ears intact, no ulcers. Neck: Supple. No JVD. Chest: Symmetrical and clear. Cardiovascular: Shows S1 and S2, no rub, no murmur. Gastrointestinal: Abdomen is soft, bowel sounds positive. Extremities: Show no edema or ulcers. Skin: Shows no rash or petechiae. Musculoskeletal: Shows no joint swelling or stiffness. Genitourinary: Shows no Waterman or CVA tenderness. Neurologic: Motor intact. Cranial nerves intact. LABORATORY DATA: Showed hemoglobin 10.8. ASSESSMENT AND PLAN: 1. Stage 6 chronic kidney disease, stable. 2. Hypertension, stable. 3. Anemia, stable. 4. Medication based on GFR, appropriate. Plan dialysis per schedule. Job ID: [id number]
[2020-04-20] MEDS: Insulin Regular 300 UNITS/3 ML VIAL SC PRN ×2 (13:08→17:44)
[2020-04-20 15:02] LABS: Hemoglobin 9.6 g/dL (14.0-18.0); Platelet Count 198 thou/uL (130-400)
--- NOTE | 2020-04-20 15:12 | PDOC.HOSPP ---
- Subjective Encounter Date: 04/19/20 Subjective: No new events overnight. The patient is feeling better. - Objective Vital Signs & Weight: Vital Signs (12 hours) Temp Pulse Resp BP Pulse Ox 04/20/20 12:30 98.7 F 87 18 103/56 L 92 L 04/20/20 08:55 82 04/20/20 08:54 82 04/20/20 08:30 98.2 F 83 16 136/78 97 04/20/20 04:25 99.2 F 82 16 140/77 99 Weight Admit Weight 205 lb 9.6 oz Weight 194 lb 11.2 oz I&O: 04/19/20 04/20/20 04/21/20 06:59 06:59 06:59 Intake Total 526 1190 Balance 526 1190 Result Diagrams: 04/20/20 14:50 04/17/20 04:48 Additional Labs: Accuchecks 04/20/20 04/20/20 04/19/20 12:29 06:10 21:53 POC Glucose 245 H 156 H 312 H 04/19/20 04/19/20 17:50 06:17 POC Glucose 182 H 128 H Hospitalist ROS - Medication Medications: Active Medications Generic Name Dose Route Start Last Admin Trade Name Freq PRN Reason Stop Dose Admin Acetaminophen 650 mg 04/01/20 04:29 04/02/20 18:25 Tylenol PO 650 mg Q4H PRN Administration Headache/Fever/Mild Pain (1-3) Amlodipine Besylate 10 mg 04/04/20 09:00 04/20/20 08:55 Norvasc PO 10 mg DAILY DIDIER Administration Atorvastatin Calcium 40 mg 04/10/20 21:00 04/19/20 21:45 Lipitor PO 40 mg HS DIDIER Administration Clonidine 0.1 mg 04/01/20 04:30 04/03/20 19:31 Catapres PO 0.1 mg BID PRN Administration SBP > 160 use second Clopidogrel Bisulfate 75 mg 04/15/20 09:00 04/20/20 08:55 Plavix PO 75 mg DAILY DIDIER Administration Ezetimibe 10 mg 04/02/20 09:00 04/20/20 08:54 Zetia PO 10 mg DAILY DIDIER Administration Guaifenesin 200 mg 04/05/20 13:08 04/07/20 20:37 Robitussin Sf PO 200 mg Q4H PRN Administration Cough Heparin Sodium (Porcine) 5,000 units 04/07/20 15:00 04/20/20 08:55 Heparin SC 5,000 units TID DIDIER Administration Hydralazine HCl 10 mg 04/01/20 04:30 04/03/20 00:18 Apresoline SLOW IVP 10 mg Q6H PRN Administration SBP GREATER THAN 160 Hydralazine HCl 50 mg 04/06/20 15:00 04/20/20 08:54 Apresoline PO 50 mg TID DIDIER Administration Insulin Human Regular 0 units 04/01/20 04:32 04/20/20 13:08 Humulin R SC 3 unit .MILD SLIDING SCALE PRN Administration Mild Correctional Scale Insulin Human Regular 0 units 04/09/20 20:49 04/19/20 21:51 Humulin R SC 4 unit .BEDTIME SLIDING SC PRN Administration BEDTIME SLIDING SCALE Protocol Isosorbide Dinitrate 20 mg 04/18/20 21:00 04/20/20 08:55 Isordil PO 20 mg BID DIDIER Administration Labetalol HCl 20 mg 04/01/20 04:30 04/01/20 14:51 Normodyne SLOW IVP 4 ml Q4H PRN Administration SBP > 160 use third Metoclopramide HCl 10 mg 04/02/20 13:31 04/08/20 16:24 Reglan IVP 10 mg Q6H PRN Administration Nausea/Vomiting Metoprolol Tartrate 50 mg 04/01/20 09:00 04/20/20 08:55 Lopressor PO 50 mg BID DIDIER Administration Nitroglycerin 0.4 mg 04/02/20 12:41 04/02/20 13:11 Nitrostat SL 0.4 mg Q5MIN PRN Administration Chest Pain Pantoprazole Sodium 40 mg 04/10/20 21:00 04/19/20 21:45 Protonix PO 40 mg HS DIDIER Administration Polyethylene Glycol 17 gm 04/01/20 09:00 04/20/20 10:15 Miralax PO Not Given DAILY [facility] Sodium Chloride 10 ml 04/01/20 04:32 04/18/20 19:45 Flush - Normal Saline IVF 10 ml PRN PRN Administration Saline Flush - Exam General Appearance: awake alert ENT: normocephalic atraumatic Heart: RRR Respiratory: normal chest expansion, no tachypnea Neurological: cranial nerve grossly intact, no focal deficits Hosp A/P - Plan COVID positive with pneumonia - - Azithro d/c due to Prolonged QT interval - pt received 2 doses (04/01-04/02) - s/p 5 days of Rocephin - repeat chest Xray 04/10 shows no significant change - he has been weaned off oxygen Acute encephalopathy - possibly recurrent TIA vs metabolic encephalopathy vs gram negative bacteremia - has had recurrent unresponsive episodes, but no focal deficits. CT head normal, EKG and chest X ray unchanged - blood cultures 1/2 + for gram negative rods. On IV zosyn - repeat blood cultures are negative. - ammonia level normal - unable to do stroke workup since COVID + Anemia - Hb 10, s/p 2 units of PRBC on 04/12 #Transaminitis #Hepatitis C - LFT trending down with reduced statin dose - hep B serology negative. Hep C positive. Hep C RNA pending Chest pain with indeterminant troponin- resolved - s/p heparin drip for five days. Continue plavix due to aspirin allergy - troponins were elevated, but repeat troponin 04/13 normal. No need for cath per cardiology ESRD - continue dialysis M, W, F Dysphagia - speech saw patient, advanced diet to puree and honey liquids HTN - controlled -continue current meds DM - continue insulin sliding scale. Blood sugars in the 120's Dyslipidemia 04/19: No new events. Continue HD on TTS. No evidence of hypoxia or respiratory distress. He is clinically stable for discharge pending placement. Repeat COVID-19 test will be done today. If negative, that will assist in placing the patient.
--- NOTE | 2020-04-20 15:13 | PDOC.HOSPP ---
- Subjective Encounter Date: 04/20/20 Subjective: No new complaints. Awaiting placement. - Objective Vital Signs & Weight: Vital Signs (12 hours) Temp Pulse Resp BP Pulse Ox 04/20/20 12:30 98.7 F 87 18 103/56 L 92 L 04/20/20 08:55 82 04/20/20 08:54 82 04/20/20 08:30 98.2 F 83 16 136/78 97 04/20/20 04:25 99.2 F 82 16 140/77 99 Weight Admit Weight 205 lb 9.6 oz Weight 194 lb 11.2 oz I&O: 04/19/20 04/20/20 04/21/20 06:59 06:59 06:59 Intake Total 526 1190 Balance 526 1190 Result Diagrams: 04/20/20 14:50 04/17/20 04:48 Additional Labs: Accuchecks 04/20/20 04/20/20 04/19/20 12:29 06:10 21:53 POC Glucose 245 H 156 H 312 H 04/19/20 04/19/20 17:50 06:17 POC Glucose 182 H 128 H Hospitalist ROS - Medication Medications: Active Medications Generic Name Dose Route Start Last Admin Trade Name Freq PRN Reason Stop Dose Admin Acetaminophen 650 mg 04/01/20 04:29 04/02/20 18:25 Tylenol PO 650 mg Q4H PRN Administration Headache/Fever/Mild Pain (1-3) Amlodipine Besylate 10 mg 04/04/20 09:00 04/20/20 08:55 Norvasc PO 10 mg DAILY DIDIER Administration Atorvastatin Calcium 40 mg 04/10/20 21:00 04/19/20 21:45 Lipitor PO 40 mg HS DIDIER Administration Clonidine 0.1 mg 04/01/20 04:30 04/03/20 19:31 Catapres PO 0.1 mg BID PRN Administration SBP > 160 use second Clopidogrel Bisulfate 75 mg 04/15/20 09:00 04/20/20 08:55 Plavix PO 75 mg DAILY DIDIER Administration Ezetimibe 10 mg 04/02/20 09:00 04/20/20 08:54 Zetia PO 10 mg DAILY DIDIER Administration Guaifenesin 200 mg 04/05/20 13:08 04/07/20 20:37 Robitussin Sf PO 200 mg Q4H PRN Administration Cough Heparin Sodium (Porcine) 5,000 units 04/07/20 15:00 04/20/20 08:55 Heparin SC 5,000 units TID DIDIER Administration Hydralazine HCl 10 mg 04/01/20 04:30 04/03/20 00:18 Apresoline SLOW IVP 10 mg Q6H PRN Administration SBP GREATER THAN 160 Hydralazine HCl 50 mg 04/06/20 15:00 04/20/20 08:54 Apresoline PO 50 mg TID DIDIER Administration Insulin Human Regular 0 units 04/01/20 04:32 04/20/20 13:08 Humulin R SC 3 unit .MILD SLIDING SCALE PRN Administration Mild Correctional Scale Insulin Human Regular 0 units 04/09/20 20:49 04/19/20 21:51 Humulin R SC 4 unit .BEDTIME SLIDING SC PRN Administration BEDTIME SLIDING SCALE Protocol Isosorbide Dinitrate 20 mg 04/18/20 21:00 04/20/20 08:55 Isordil PO 20 mg BID DIDIER Administration Labetalol HCl 20 mg 04/01/20 04:30 04/01/20 14:51 Normodyne SLOW IVP 4 ml Q4H PRN Administration SBP > 160 use third Metoclopramide HCl 10 mg 04/02/20 13:31 04/08/20 16:24 Reglan IVP 10 mg Q6H PRN Administration Nausea/Vomiting Metoprolol Tartrate 50 mg 04/01/20 09:00 04/20/20 08:55 Lopressor PO 50 mg BID DIDIER Administration Nitroglycerin 0.4 mg 04/02/20 12:41 04/02/20 13:11 Nitrostat SL 0.4 mg Q5MIN PRN Administration Chest Pain Pantoprazole Sodium 40 mg 04/10/20 21:00 04/19/20 21:45 Protonix PO 40 mg HS DIDIER Administration Polyethylene Glycol 17 gm 04/01/20 09:00 04/20/20 10:15 Miralax PO Not Given DAILY DIDIER Sodium Chloride 10 ml 04/01/20 04:32 04/18/20 19:45 Flush - Normal Saline IVF 10 ml PRN PRN Administration Saline Flush - Exam General Appearance: awake alert Neck: supple Heart: RRR Respiratory: normal chest expansion, no tachypnea Neurological: cranial nerve grossly intact, no focal deficits Hosp A/P - Plan COVID positive with pneumonia - - Azithro d/c due to Prolonged QT interval - pt received 2 doses (04/01-04/02) - s/p 5 days of Rocephin - repeat chest Xray 04/10 shows no significant change - he has been weaned off oxygen Acute encephalopathy - possibly recurrent TIA vs metabolic encephalopathy vs gram negative bacteremia - has had recurrent unresponsive episodes, but no focal deficits. CT head normal, EKG and chest X ray unchanged - blood cultures 1/2 + for gram negative rods. On IV zosyn - repeat blood cultures are negative. - ammonia level normal - unable to do stroke workup since COVID + Anemia - Hb 10, s/p 2 units of PRBC on 04/12 #Transaminitis #Hepatitis C - LFT trending down with reduced statin dose - hep B serology negative. Hep C positive. Hep C RNA pending Chest pain with indeterminant troponin- resolved - s/p heparin drip for five days. Continue plavix due to aspirin allergy - troponins were elevated, but repeat troponin 04/13 normal. No need for cath per cardiology ESRD - continue dialysis M, W, F Dysphagia - speech saw patient, advanced diet to puree and honey liquids HTN - controlled -continue current meds DM - continue insulin sliding scale. Blood sugars in the 120's Dyslipidemia 04/20: No new complaints from the patient. Awaiting placement. No evidence of hypoxia or respiratory distress. He is clinically stable for discharge pending placement. Repeat COVID-19 test will be done today. If negative, that will assist in placing the patient.
[2020-04-20] MEDS: Pantoprazole 40 MG GRANULES PACKET PO SCH (22:55)
[2020-04-20] MEDS: Atorvastatin Calcium 40 MG TAB PO SCH (22:56)
[2020-04-21] MEDS: Heparin 5,000 UNITS/ML VIAL SC SCH ×3 (09:54→21:04)
[2020-04-21] MEDS: Isosorbide Dinitrate 20 MG TAB PO SCH ×2 (09:54→21:04)
[2020-04-21] MEDS: Amlodipine 10 MG TAB PO SCH (09:54)
[2020-04-21] MEDS: Clopidogrel Bisulfate 75 MG TAB PO SCH (09:54)
[2020-04-21] MEDS: Metoprolol Tartrate 50 MG TAB PO SCH ×2 (09:54→21:04)
[2020-04-21] MEDS: hydrALAZINE 25 MG TAB PO SCH ×4 (09:54→21:04)
[2020-04-21] MEDS: Ezetimibe 10 MG TAB PO SCH (09:54)
[2020-04-21] MEDS: Polyethylene Glycol 3350 17 GM Packet PO SCH (09:54)
--- NOTE | 2020-04-21 11:00 | PRG ---
DATE OF SERVICE: 04/21/2020 SUBJECTIVE: This is a 64-year-old gentleman being seen for end-stage renal disease. The patient denies nausea, vomiting, or chest pain. PHYSICAL EXAMINATION: General: The patient is awake and alert. Vital Signs: Afebrile, pulse 98, breathing at 16, blood pressure 130/70. HEENT: Head normocephalic and atraumatic. Eyes intact, no ulcers. Nose intact, no ulcers. Ears intact, no ulcers. Neck: Supple. No JVD. Chest: Symmetrical and clear. Cardiovascular: Shows S1 and S2, no rub, no murmur. Gastrointestinal: Abdomen is soft, bowel sounds positive. Extremities: Show no edema or ulcers. Skin: Shows no rash or petechiae. Musculoskeletal: Shows no joint swelling or stiffness. Genitourinary: Shows no Waterman or CVA tenderness. Neurologic: Motor intact. Cranial nerves intact. LABORATORY DATA: Reviewed. ASSESSMENT AND PLAN: 1. Stage 3 chronic kidney disease, stable. 2. Hypertension. 3. Anemia, stable. 4. We will plan dialysis. Job ID: [id number]
[2020-04-21] MEDS ORDERED: Heparin 10,000 UNITS/ 10 ML VIAL ONE (11:58)
[2020-04-21] MEDS: Insulin Regular 300 UNITS/3 ML VIAL SC PRN (12:31)
--- NOTE | 2020-04-21 13:30 | PDOC.HOSPP ---
- Subjective Encounter Date: 04/21/20 Subjective: Status unchanged. No new complaints. - Objective Vital Signs & Weight: Vital Signs (12 hours) Temp Pulse Resp BP BP Pulse Ox 04/21/20 11:16 99.0 F 83 18 120/63 95 04/21/20 09:54 81 04/21/20 07:45 97.5 F L 81 20 157/89 H 97 04/21/20 03:56 98.8 F 84 16 142/67 H 96 Weight Admit Weight 205 lb 9.6 oz Weight 194 lb 11.2 oz I&O: 04/20/20 04/21/20 04/22/20 06:59 06:59 06:59 Intake Total 1190 240 Balance 1190 240 Result Diagrams: 04/20/20 14:50 04/17/20 04:48 Additional Labs: Accuchecks 04/21/20 04/21/20 04/20/20 11:14 06:19 22:43 POC Glucose 231 H 149 H 198 H 04/20/20 16:17 POC Glucose 189 H Hospitalist ROS - Medication Medications: Active Medications Generic Name Dose Route Start Last Admin Trade Name Freq PRN Reason Stop Dose Admin Acetaminophen 650 mg 04/01/20 04:29 04/02/20 18:25 Tylenol PO 650 mg Q4H PRN Administration Headache/Fever/Mild Pain (1-3) Amlodipine Besylate 10 mg 04/04/20 09:00 04/21/20 09:54 Norvasc PO 10 mg DAILY DIDIER Administration Atorvastatin Calcium 40 mg 04/10/20 21:00 04/20/20 22:56 Lipitor PO 40 mg HS DIDIER Administration Clonidine 0.1 mg 04/01/20 04:30 04/03/20 19:31 Catapres PO 0.1 mg BID PRN Administration SBP > 160 use second Clopidogrel Bisulfate 75 mg 04/15/20 09:00 04/21/20 09:54 Plavix PO 75 mg DAILY DIDIER Administration Ezetimibe 10 mg 04/02/20 09:00 04/21/20 09:54 Zetia PO 10 mg DAILY DIDIER Administration Guaifenesin 200 mg 04/05/20 13:08 04/07/20 20:37 Robitussin Sf PO 200 mg Q4H PRN Administration Cough Heparin Sodium (Porcine) 5,000 units 04/07/20 15:00 04/21/20 09:54 Heparin SC 5,000 units TID DIDIER Administration Hydralazine HCl 10 mg 04/01/20 04:30 04/03/20 00:18 Apresoline SLOW IVP 10 mg Q6H PRN Administration SBP GREATER THAN 160 Hydralazine HCl 50 mg 04/06/20 15:00 04/21/20 09:54 Apresoline PO 50 mg TID DIDIER Administration Insulin Human Regular 0 units 04/01/20 04:32 04/21/20 12:31 Humulin R SC 3 unit .MILD SLIDING SCALE PRN Administration Mild Correctional Scale Insulin Human Regular 0 units 04/09/20 20:49 04/19/20 21:51 Humulin R SC 4 unit .BEDTIME SLIDING SC PRN Administration BEDTIME SLIDING SCALE Protocol Isosorbide Dinitrate 20 mg 04/18/20 21:00 04/21/20 09:54 Isordil PO 20 mg BID DIDIER Administration Labetalol HCl 20 mg 04/01/20 04:30 04/01/20 14:51 Normodyne SLOW IVP 4 ml Q4H PRN Administration SBP > 160 use third Metoclopramide HCl 10 mg 04/02/20 13:31 04/08/20 16:24 Reglan IVP 10 mg Q6H PRN Administration Nausea/Vomiting Metoprolol Tartrate 50 mg 04/01/20 09:00 04/21/20 09:54 Lopressor PO 50 mg BID DIDIER Administration Nitroglycerin 0.4 mg 04/02/20 12:41 04/02/20 13:11 Nitrostat SL 0.4 mg Q5MIN PRN Administration Chest Pain Pantoprazole Sodium 40 mg 04/10/20 21:00 04/20/20 22:55 Protonix PO 40 mg HS DIDIER Administration Polyethylene Glycol 17 gm 04/01/20 09:00 04/21/20 09:54 Miralax PO Not Given DAILY [facility] Sodium Chloride 10 ml 04/01/20 04:32 04/18/20 19:45 Flush - Normal Saline IVF 10 ml PRN PRN Administration Saline Flush - Exam General Appearance: awake alert ENT: normocephalic atraumatic Neck: supple Respiratory: normal chest expansion, no tachypnea Gastrointestinal: soft Neurological: no focal deficits Hosp A/P - Plan -Pending placement. COVID positive with pneumonia - - Azithro d/c due to Prolonged QT interval - pt received 2 doses (04/01-04/02) - s/p 5 days of Rocephin - repeat chest Xray 04/10 shows no significant change - he has been weaned off oxygen Acute encephalopathy - possibly recurrent TIA vs metabolic encephalopathy vs gram negative bacteremia - has had recurrent unresponsive episodes, but no focal deficits. CT head normal, EKG and chest X ray unchanged - blood cultures 1/2 + for gram negative rods. On IV zosyn - repeat blood cultures are negative. - ammonia level normal - unable to do stroke workup since COVID + Anemia - Hb 10, s/p 2 units of PRBC on 04/12 #Transaminitis #Hepatitis C - LFT trending down with reduced statin dose - hep B serology negative. Hep C positive. Hep C RNA pending Chest pain with indeterminant troponin- resolved - s/p heparin drip for five days. Continue plavix due to aspirin allergy - troponins were elevated, but repeat troponin 04/13 normal. No need for cath per cardiology ESRD - continue dialysis M, W, F Dysphagia - speech saw patient, advanced diet to puree and honey liquids HTN - controlled -continue current meds DM - continue insulin sliding scale. Blood sugars in the 120's Dyslipidemia 04/20: No new complaints from the patient. Awaiting placement. No evidence of hypoxia or respiratory distress. He is clinically stable for discharge pending placement. Repeat COVID-19 test will be done today. If negative, that will assist in placing the patient.
[2020-04-21] MEDS: Atorvastatin Calcium 40 MG TAB PO SCH (21:04)
[2020-04-21] MEDS: Pantoprazole 40 MG GRANULES PACKET PO SCH (21:05)
[2020-04-22] MEDS: Isosorbide Dinitrate 20 MG TAB PO SCH (08:55)
[2020-04-22] MEDS: Ezetimibe 10 MG TAB PO SCH (08:55)
[2020-04-22] MEDS: hydrALAZINE 25 MG TAB PO SCH ×2 (08:55→15:47)
[2020-04-22] MEDS: Amlodipine 10 MG TAB PO SCH (08:55)
[2020-04-22] MEDS: Heparin 5,000 UNITS/ML VIAL SC SCH ×2 (08:55→15:47)
[2020-04-22] MEDS: Clopidogrel Bisulfate 75 MG TAB PO SCH (08:55)
[2020-04-22] MEDS: Polyethylene Glycol 3350 17 GM Packet PO SCH (08:56)
[2020-04-22] MEDS: Metoprolol Tartrate 50 MG TAB PO SCH (08:56)
--- NOTE | 2020-04-22 12:07 | PDOC.HOSPP ---
- Subjective Encounter Date: 04/22/20 Encounter Time: 09:45 Subjective: has cough, no sob or chest pain responds well to verbal stimuli - Objective Vital Signs & Weight: Vital Signs (12 hours) Temp Pulse Resp BP BP Pulse Ox 04/22/20 11:53 98.7 F 76 18 106/73 96 04/22/20 09:00 98.8 F 87 20 129/75 93 L 04/22/20 04:00 98.2 F 77 18 158/78 H 98 Weight Admit Weight 205 lb 9.6 oz Weight 194 lb 11.2 oz I&O: 04/21/20 04/22/20 04/23/20 06:59 06:59 06:59 Intake Total 540 Balance 540 Result Diagrams: 04/20/20 14:50 04/17/20 04:48 Additional Labs: Accuchecks 04/22/20 04/21/20 04/21/20 06:20 21:18 16:57 POC Glucose 136 H 116 H 218 H Hospitalist ROS - Medication Medications: Active Medications Generic Name Dose Route Start Last Admin Trade Name Freq PRN Reason Stop Dose Admin Acetaminophen 650 mg 04/01/20 04:29 04/02/20 18:25 Tylenol PO 650 mg Q4H PRN Administration Headache/Fever/Mild Pain (1-3) Amlodipine Besylate 10 mg 04/04/20 09:00 04/22/20 08:55 Norvasc PO 10 mg DAILY DIDIER Administration Atorvastatin Calcium 40 mg 04/10/20 21:00 04/21/20 21:04 Lipitor PO 40 mg HS DIDIER Administration Clonidine 0.1 mg 04/01/20 04:30 04/03/20 19:31 Catapres PO 0.1 mg BID PRN Administration SBP > 160 use second Clopidogrel Bisulfate 75 mg 04/15/20 09:00 04/22/20 08:55 Plavix PO 75 mg DAILY DIDIER Administration Ezetimibe 10 mg 04/02/20 09:00 04/22/20 08:55 Zetia PO 10 mg DAILY DIDIER Administration Guaifenesin 200 mg 04/05/20 13:08 04/07/20 20:37 Robitussin Sf PO 200 mg Q4H PRN Administration Cough Heparin Sodium (Porcine) 5,000 units 04/07/20 15:00 04/22/20 08:55 Heparin SC 5,000 units TID DIDIER Administration Hydralazine HCl 10 mg 04/01/20 04:30 04/03/20 00:18 Apresoline SLOW IVP 10 mg Q6H PRN Administration SBP GREATER THAN 160 Hydralazine HCl 50 mg 04/06/20 15:00 04/22/20 08:55 Apresoline PO 50 mg TID DIDIER Administration Insulin Human Regular 0 units 04/01/20 04:32 04/21/20 12:31 Humulin R SC 3 unit .MILD SLIDING SCALE PRN Administration Mild Correctional Scale Insulin Human Regular 0 units 04/09/20 20:49 04/19/20 21:51 Humulin R SC 4 unit .BEDTIME SLIDING SC PRN Administration BEDTIME SLIDING SCALE Protocol Isosorbide Dinitrate 20 mg 04/18/20 21:00 04/22/20 08:55 Isordil PO 20 mg BID DIDIER Administration Labetalol HCl 20 mg 04/01/20 04:30 04/01/20 14:51 Normodyne SLOW IVP 4 ml Q4H PRN Administration SBP > 160 use third Metoclopramide HCl 10 mg 04/02/20 13:31 04/08/20 16:24 Reglan IVP 10 mg Q6H PRN Administration Nausea/Vomiting Metoprolol Tartrate 50 mg 04/01/20 09:00 04/22/20 08:56 Lopressor PO 50 mg BID DIDIER Administration Nitroglycerin 0.4 mg 04/02/20 12:41 04/02/20 13:11 Nitrostat SL 0.4 mg Q5MIN PRN Administration Chest Pain Pantoprazole Sodium 40 mg 04/10/20 21:00 04/21/20 21:05 Protonix PO 40 mg HS DIDIER Administration Polyethylene Glycol 17 gm 04/01/20 09:00 04/22/20 08:56 Miralax PO 17 gm DAILY DIDIER Administration Sodium Chloride 10 ml 04/01/20 04:32 04/21/20 21:05 Flush - Normal Saline IVF 10 ml PRN PRN Administration Saline Flush - Exam General Appearance: awake alert Eye: PERRL, anicteric sclera ENT: no oropharyngeal lesions, moist mucosa Neck: supple, no JVD Heart: RRR, no murmur Respiratory: no wheezes, no rales Gastrointestinal: soft, non-tender, non-distended, normal bowel sounds Extremities: no cyanosis, no edema Neurological: cranial nerve grossly intact, no focal deficits Psychiatric: A&O x 3 Hosp A/P (1) ESRD (end stage renal disease) on dialysis Code(s): N18.6 - END STAGE RENAL DISEASE; Z99.2 - DEPENDENCE ON RENAL DIALYSIS Status: Acute (2) Physical deconditioning Code(s): R53.81 - OTHER MALAISE Status: Acute (3) Hepatitis C Code(s): B19.20 - UNSPECIFIED VIRAL HEPATITIS C WITHOUT HEPATIC COMA Status: Chronic Qualifiers: Viral hepatitis chronicity: chronic Hepatic coma status: without hepatic coma Qualified Code(s): B18.2 - Chronic viral hepatitis C (4) Dysphagia Code(s): R13.10 - DYSPHAGIA, UNSPECIFIED Status: Acute Qualifiers: Dysphagia type: oropharyngeal phase Qualified Code(s): R13.12 - Dysphagia, oropharyngeal phase (5) Pneumonia due to COVID-19 virus Code(s): U07.1 - COVID-19; J12.89 - OTHER VIRAL PNEUMONIA Status: Acute (6) Anemia Code(s): D64.9 - ANEMIA, UNSPECIFIED Status: Chronic Qualifiers: Anemia type: due to chronic kidney disease (7) Dyslipidemia Code(s): E78.5 - HYPERLIPIDEMIA, UNSPECIFIED Status: Chronic (8) DM type 2 (diabetes mellitus, type 2) Status: Chronic Qualifiers: Diabetes mellitus [facility] insulin use: with [facility] use Diabetes mellitus complication status: with kidney complications Diabetes mellitus complication detail: with chronic kidney disease Chronic kidney disease stage : on chronic dialysis Qualified Code(s): E11.22 - Type 2 diabetes mellitus with diabetic chronic kidney disease; N18.6 - End stage renal disease; Z79.4 - termite treater helper (current) use of insulin; Z99.2 - Dependence on renal dialysis (9) HTN (hypertension) Code(s): I10 - ESSENTIAL (PRIMARY) HYPERTENSION Status: Chronic Qualifiers: Hypertension type: essential hypertension Qualified Code(s): I10 - Essential (primary) hypertension - Plan [facility]able may dc to swing bed in [place] after HD if they can take him today is on pureed diet, to advance as tolerated at swing bed continue norvasc, hydralazine, isordil, lopressor, lipitor, zetia, plavix
[2020-04-22 15:00] LABS: Hemoglobin 10.4 g/dL (14.0-18.0); Platelet Count 203 thou/uL (130-400)
--- NOTE | 2020-04-22 15:47 | PRG ---
DATE OF SERVICE: 04/22/2020 Subjective: Seen and examined in the room. Patient is currently getting hemodialysis. No acute overnight events. Review of systems Gen.: No fever, no chills All the 14 systems reviewed except for the ones mentioned above are negative Vitals Blood pressure-122/84 Pulse rate-73/minute RR-18/minute Oxygen saturation-96% on room air Physical examination Patient is currently on airborne isolation Constitutional: comfortable, not in pain HEENT: On supplemental oxygen Neck: Trachea midline, right IJ TDC noted Heart: Regular rate and rhythm on monitor Abdomen: Not distended Extremities: No edema Neurological: Patient is awake, following commands Skin: No rash, no ulcers Psychological: Not agitated Labs and Imaging reviewed. See above Hemoglobin 10.4, hematocrit 32.8 Assessment and plan CKD stage 5D Hypertension Anemia Secondary hyperparathyroidism Patient is currently getting hemodialysis, target UF 1.2 L as tolerated. Patient 's blood pressure is marginal limiting ultrafiltration. Patient's blood pressure is stable, currently on Lopressor and amlodipine. Continue to monitor patient's hemoglobin and crit and transfuse PRBC p.r.n..Patient is currently on low phosphorus renal diet. Discussed with dialysis nurse at the bedside. Job ID: [id number] MTDD
[2020-04-22 15:49] VITALS: BP 122/84; TEMP 98.2
--- NOTE | 2020-04-23 21:38 | PQF ---
CLINICAL DOCUMENTATION CLARIFICATION FORM: Dear : Roxie Estes Date / Time: 04/23/20 784 Please exercise your independent, professional judgment in responding to the clarification form. Clinical indicators are provided on the bottom of this form for your review In your clinical opinion based on clinical findings below, can you please identify the etiology of Acute Renal Failure? Please check appropriate box(es): [ ] Sepsis [ ] ESRD [ ] Other diagnosis [ x ] Unable to determine Physician Signature: Date/Time: For continuity of documentation, please document condition throughout progress notes and discharge summary. Thank You. To be completed by CDI/Coding staff for physician review: Present Clinical Indicators - Signs / Symptoms / Labs Results and Location in Medical Record [X] WBC 4.0, Plt count 135. Neutrophils 68.0 Laboratory Hematology 03/31 [X] BUN 46, Creatinine 6.13. GFR 11 Laboratory Chemistry 03/31 [X] Blood culture: Positive with Gram Variable Ced Microbiology 04/10 [X] BP 197/131, P7ulse 96, Resp 20, temp 98 Vital signs 04/01 [X] SIRS Scoring: Yes, Pt did meet at least 1 criteria ED notes p2 04/01 [X] Pt admitted fir acute on chronic renal failure, HTN and Covid PNA ED notes p9 04/01 [X] Acute on chronic failure on CKD 4, possibly secondary to uncontrolled HTN vs Sepsis H&P p4 04/01 Dr Gore [X] ESRD, Covid postiive, encephalopathic Operative report p1 04/13 Dr Kincaid Present Risk Factors Results and Location in Medical Record [X] 64 year-old Male H&P p1 04/01 Dr Gore [X] HTN H&P p1 04/01 Dr Gore [X] CKD H&P p1 04/01 Dr Gore [X] DM H&P p1 04/01 Dr Gore [X] Covid Pneumonia H&P p1 04/01 Dr Gore Present Treatments Results and Location in Medical Record [X] IVF NS 1L DEC 09 [X] IV Rocephin 1 gm DEC 09 [X] IV Zithromycin 500 mg DEC 09 [X] IV Zosyn 2.25 gm DEC 10 [X] Blood culture Microbiology 04/10 [X] Transfusion: RBC Blood bank 04/12 [X] Hemodialysis Ordered by Sonny Valdivia 04/08 [X] Isolation Ordered by Dr Gore 04/01 [X] Renal Consult Yvan Mendiola 04/01 CDS/Procurement Inspector Signature: Geovanna Ortega Phone #: ext [phone] Date/Time: 2135 This is a permanent part of the Medical Record [facility]
--- NOTE | 2020-04-24 10:22 | DIS ---
DATE OF ADMISSION: 04/01/2020 DATE OF DISCHARGE: 04/22/2020 DISCHARGE DISPOSITION: Swing bed in [place]. PRIMARY DISCHARGE DIAGNOSES: COVID pneumonia, resolving; end-stage renal disease, initiated on hemodialysis; severe deconditioning; chronic hepatitis C; chronic anemia due to renal disease; dysphagia on pureed diet; dyslipidemia; diabetes mellitus type 2; hypertension. PROCEDURES DONE DURING HOSPITALIZATION: Abdominal and pelvic CAT scan done on 03/31/2020, showed patchy peripheral subpleural ground-glass opacity suspicious for pneumonia. The patient has had placement of left femoral Trialysis catheter on 04/08/2020 for acute renal failure by Dr. Malik. On 04/13/2020, the patient has had placement of right IJ cuffed tunneled hemodialysis catheter by Dr. Kincaid. Discharge H and H 10 and 32, platelet count 203. BUN and creatinine were 42 and 6.7 on 04/17/2020. Admitting BUN and creatinine were 46 and 6.1. The patient has had COVID-19 PCR done on 04/01/2020 and 04/15/2020, both of which are positive. Hep C antibody was positive, but HCV was not detected on the ultra-quantitative assay. INPATIENT CONSULTS: Dr. Long for Nephrology, Dr. Kincaid for General Surgery. DISCHARGE PLAN: The patient to follow up with his primary care physician, Dr. Grady in 1 week. BRIEF COURSE DURING HOSPITALIZATION: The patient initially got admitted on 04/01/2020 with complaints of abdominal pain. Initial workup and labs were consistent with acute renal failure. His baseline creatinine was in the 3 to 4 range, but on arrival, he had a creatinine of 6. The patient also had a temperature of 100.3 degrees on arrival. He has had COVID test done, which was positive. The patient was gently hydrated. He has had consultation with Dr. Long for Nephrology. The patient continued to worsen with his renal function and had to be initiated on hemodialysis. He has also been deconditioned due to COVID-19 infection and acute renal failure as well. At the time of discharge, he is tolerating oral pureed diet. He has dysphagia and Speech Therapy needs to continue to assess him at the swing bed facility. He has been cleared for discharge by all specialists. Outpatient hemodialysis has been set up by Case Management. A total of 35 minutes was spent on discharge plan. The patient needs to work with physical therapy and start mobilizing. His medications were optimized for his current end-stage renal disease. Please see a [id number] documentation for the day of discharge on [employer] Job ID: [id number] [facility]
== END 2020-04-22 18:15 | disposition swing bed (61) | DRG 673 ==
LOC: ERS 20:00 → 2SW 04-01 03:52 → OBSVTOIN 04-01 05:04
PROVIDERS: ADMIT Internal Medicine; ATTEND Internal Medicine
PROC: 8E0ZXY6 Isolation (ICD-10-PCS; 2020-04-01)
PROC: 5A1D70Z Performance of Urinary Filtration, Intermittent, Less than 6 Hours Per Day (ICD-10-PCS; principal; 2020-04-08)
PROC: 06HY33Z Insertion of Infusion Device into Lower Vein, Percutaneous Approach (ICD-10-PCS; 2020-04-08)
PROC: 30233N1 Transfusion of Nonautologous Red Blood Cells into Peripheral Vein, Percutaneous Approach (ICD-10-PCS; 2020-04-12)
PROC: 0JH63XZ Insertion of Tunneled Vascular Access Device into Chest Subcutaneous Tissue and Fascia, Percutaneous Approach (ICD-10-PCS; 2020-04-13)
PROC: 02H633Z Insertion of Infusion Device into Right Atrium, Percutaneous Approach (ICD-10-PCS; 2020-04-13)
PROC: B518ZZA Fluoroscopy of Superior Vena Cava, Guidance (ICD-10-PCS; 2020-04-13)
PROC: B548ZZA Ultrasonography of Superior Vena Cava, Guidance (ICD-10-PCS; 2020-04-13)
PROC: 02HV33Z Insertion of Infusion Device into Superior Vena Cava, Percutaneous Approach (ICD-10-PCS; 2020-04-14)
PROC: B548ZZA Ultrasonography of Superior Vena Cava, Guidance (ICD-10-PCS; 2020-04-14)
DX: N17.9 Acute kidney failure, unspecified (principal); U07.1 COVID-19; J12.89 Other viral pneumonia; G93.41 Metabolic encephalopathy; A41.59 Other Gram-negative sepsis; E87.2 Acidosis; I12.0 Hypertensive chronic kidney disease with stage 5 chronic kidney disease or end stage renal disease; E46 Unspecified protein-calorie malnutrition; T82.49XA Other complication of vascular dialysis catheter, initial encounter; G45.9 Transient cerebral ischemic attack, unspecified; N18.6 End stage renal disease; E11.22 Type 2 diabetes mellitus with diabetic chronic kidney disease; E78.5 Hyperlipidemia, unspecified; D63.1 Anemia in chronic kidney disease; R07.89 Other chest pain; B19.20 Unspecified viral hepatitis C without hepatic coma; R79.89 Other specified abnormal findings of blood chemistry; N25.81 Secondary hyperparathyroidism of renal origin; R13.12 Dysphagia, oropharyngeal phase; Y84.8 Other medical procedures as the cause of abnormal reaction of the patient, or of later complication, without mention of misadventure at the time of the procedure; R74.0 Nonspecific elevation of levels of transaminase and lactic acid dehydrogenase [LDH]; E87.6 Hypokalemia; I45.81 Long QT syndrome; Z78.1 Physical restraint status; Z86.73 Personal history of transient ischemic attack (TIA), and cerebral infarction without residual deficits; Z95.5 Presence of coronary angioplasty implant and graft; Z68.30 Body mass index [BMI] 30.0-30.9, adult; Z79.899 Other long term (current) drug therapy; Z79.84 Long term (current) use of oral hypoglycemic drugs
CPT/HCPCS: 36415; 36416; 36430; 70450; 71045; 74176; 80048; 80053; 80074; 81003; 81015; 82140; 82550; 82553; 82570; 82805; 83605; 83690; 83735; 84484; 85014; 85018; 85025; 85027; 85049; 85610; 85730; 86850; 86900; 86901; 87040; 87149; 87340; 87522; 87635; 90935; 93005; 93010; 96365; 96367; 96375; C1752; G0257; G0378; J0360; J0456; J0692; J0696; J1642; J1644; J1815; J2270; J2405; J2543; J2550; J2704; J2765; J3010; J3490; J7070; P9016; S0020; U0003

== ENCOUNTER 2020-04-28 13:46 | Outpatient (CLI) | payer MEDICARE, MEDICAID ==
--- NOTE | 2020-04-28 14:35 | ULT ---
BILATERAL UPPER EXTREMITY VEIN MAPPING: Date: 04/28/2020 HISTORY: End-stage renal disease. Mapping for dialysis access. FINDINGS: RIGHT UPPER EXTREMITY CEPHALIC VEIN Proximal Arm: 4.3 mm Mid Arm: 4.0 mm Distal Arm: 4.0 mm Antecubital Fossa: 3.4 mm Proximal Forearm: 2.0 mm Mid Forearm: 3.1 mm Distal Forearm: 2.8 mm BASILIC VEIN Proximal Arm: 4.2 mm Mid Arm: 4.2 mm Distal Arm: 4.4 mm Antecubital Fossa: 4.6 mm Proximal Forearm: 2.3 mm Mid Forearm: 2.1 mm Distal Forearm: 1.6 mm LEFT UPPER EXTREMITY CEPHALIC VEIN Proximal Arm: 2.8 mm Mid Arm: 2.8 mm Distal Arm: 2.7 mm Antecubital Fossa: 2.6 mm Proximal Forearm: 2.1 mm Mid Forearm: 3.2 mm Distal Forearm: 3.0 mm BASILIC VEIN Proximal Arm: 3.9 mm Mid Arm: 3.7 mm Distal Arm: 3.4 mm Antecubital Fossa: 3.5 mm Proximal Forearm: 1.8 mm Mid Forearm: 1.1 mm Distal Forearm: 0.9 mm RIGHT BRACHIAL ARTERY: 5.9 mm RIGHT RADIAL ARTERY: 3.6 mm RIGHT ULNAR ARTERY: 2.3 mm LEFT BRACHIAL ARTERY: 6.1 mm LEFT RADIAL ARTERY: 3.6 mm LEFT ULNAR ARTERY: 3.0 mm IMPRESSION: Vein mapping as above. POS: RAISSA
== END 2020-04-28 13:47 | disposition home or self-care (01) ==
LOC: ULT 13:46
PROVIDERS: ATTEND Specialist
DX: N18.6 End stage renal disease (principal); R60.0 Localized edema
CPT/HCPCS: 93970; G0365

== ENCOUNTER 2020-05-08 12:39 | Outpatient (CLI) | payer MEDICARE, MEDICAID ==
--- NOTE | 2020-05-08 14:09 | RAD ---
Modified barium swallow HISTORY: Dysphagia. Difficulty swallowing. FINDINGS: Exam was performed in conjunction with speech pathology with multiple consistencies. Video review is available and shows early spill of contrast. With barium puree, episode of aspiration and spontaneous coughing by the patient occurred. It was after extensive residue and secondary swallowing . The esophagus below the level of the hypopharynx was not evaluated. Please see separate detailed report from speech pathology.
== END 2020-05-08 12:40 | disposition home or self-care (01) ==
LOC: RAD 12:39
PROVIDERS: ATTEND Family Medicine
DX: I69.191 Dysphagia following nontraumatic intracerebral hemorrhage (principal)
CPT/HCPCS: 74230

== ENCOUNTER 2020-12-18 13:12 | Observation (INO) | payer MEDICARE, MEDICAID ==
[2020-12-18] MEDS ORDERED: Nitroglycerin 0.4 MG TAB 1 EACH ONE (13:55)
[2020-12-18 14:44] LABS: #Eosinphils 0.2 thou/uL (0.0-0.7); #Lymphocytes 2.3 thou/uL (1.20-3.40); #Monocytes 0.5 thou/uL (0.11-0.59); %Basophils 0.2 % (0.0-1.0); %Eosinophils 2.5 % (0.0-10.0); %Lymphocytes 38.6 % (21.0-51.0); %Monocytes 7.6 % (0.0-10.0); Hemoglobin 12.8 g/dL (14.0-18.0); Mean Corpuscular HGB CONC 33.1 g/dL (32.0-36.0); Mean Corpuscular Hemoglobin 31.1 pg (27.0-31.0); Mean Platelet Volume 6.7 fL (7.4-10.4); Platelet Count 192 thou/uL (130-400); RBC Distribution Width 12.9 % (11.5-14.5); Red Blood Cell (RBC) Count 4.12 mill/uL (4.70-6.10)
[2020-12-18 15:02] LABS: ALT (SGPT) 32 U/L (8-55); AST (SGOT) 19 U/L (5-34); Albumin 3.5 g/dL (3.4-4.8); Alkaline Phosphatase 75 U/L (40-110); Anion Gap 17 mmol/L (10-20); BUN (Urea Nitrogen) 41 mg/dL (8.4-25.7); Bilirubin, Total 0.3 mg/dL (0.2-1.2); Calc. Creatinine Clearance 0 mL/min (70-130); Calcium 8.9 mg/dL (7.8-10.44); Carbon Dioxide 23 mmol/L (23-31); Chloride 102 mmol/L (98-107); Globulin 3.2 g/dL (2.4-3.5); Glucose 130 mg/dL (80-115); Protein, Total 6.7 g/dL (5.8-8.1); Sodium 137 mmol/L (136-145)
[2020-12-18] MEDS ORDERED: Nitroglycerin 0.4 MG TAB (25 Tab Bottle) SL PRN (16:03)
[2020-12-18] MEDS ORDERED: Acetaminophen 325 MG TAB PO PRN (16:03)
[2020-12-18] MEDS ORDERED: Dextrose 5% in Water 1,000 ML IV PRN (16:03)
[2020-12-18] MEDS ORDERED: Insulin Regular 300 UNITS/3 ML VIAL SC PRN ×2 (16:03)
[2020-12-18] MEDS ORDERED: Dextrose 50% Abboject 50 ML SYRINGE SLOW IVP PRN (16:03)
[2020-12-18] MEDS ORDERED: Ondansetron HCl/PF 4 MG in Sodium Chloride 0.9% 50 ML IVPB PRN (16:45)
[2020-12-18] MEDS ORDERED: Lidocaine 5% Patch TD PRN (17:36)
[2020-12-18 18:00] LABS: Hemoglobin A1c 6.1 % (4.0-6.0)
[2020-12-18 18:13] LABS: Cardiac Risk 2.9 (Less than 4.5)
[2020-12-18] MEDS ORDERED: Atorvastatin Calcium 40 MG TAB PO SCH (21:00)
[2020-12-18] MEDS: Heparin 5,000 UNITS/ML VIAL SC SCH (22:07)
[2020-12-18 23:10] VITALS: BMI 25.3
[2020-12-19 00:58] LABS: #Eosinphils 0.1 thou/uL (0.0-0.7); #Lymphocytes 2.5 thou/uL (1.20-3.40); #Monocytes 0.4 thou/uL (0.11-0.59); #Neutrophils 2.5 thou/uL (1.40-6.50); %Basophils 0.1 % (0.0-1.0); %Eosinophils 1.2 % (0.0-10.0); %Lymphocytes 45.6 % (21.0-51.0); %Monocytes 6.5 % (0.0-10.0); %Neutrophils 46.6 % (42.0-75.0); Hemoglobin 11.4 g/dL (14.0-18.0); Mean Corpuscular Hemoglobin 31.6 pg (27.0-31.0); Mean Corpuscular Volume 93.1 fL (78.0-98.0); Mean Platelet Volume 6.5 fL (7.4-10.4); Platelet Count 183 thou/uL (130-400); Red Blood Cell (RBC) Count 3.62 mill/uL (4.70-6.10); White Blood Cell (WBC) Count 5.4 thou/uL (4.8-10.8)
[2020-12-19 04:49] LABS: SARS-CoV-2 PCR by NAA Not Detected (NotDetected)
[2020-12-19 05:01] LABS: Anion Gap 12 mmol/L (10-20); BUN (Urea Nitrogen) 52 mg/dL (8.4-25.7); Calc. Creatinine Clearance 14 mL/min (70-130); Calcium 8.1 mg/dL (7.8-10.44); Carbon Dioxide 26 mmol/L (23-31); Chloride 104 mmol/L (98-107); Glucose 136 mg/dL (80-115); Potassium 4.4 mmol/L (3.5-5.1); Sodium 138 mmol/L (136-145)
[2020-12-19] MEDS: Heparin 5,000 UNITS/ML VIAL SC SCH ×2 (08:00→15:52)
[2020-12-19] MEDS ORDERED: Clopidogrel Bisulfate 75 MG TAB PO SCH (09:00)
[2020-12-19] MEDS ORDERED: Enoxaparin Sodium 30 MG/0.3 ML SYRINGE SC SCH (09:00)
[2020-12-19] MEDS ORDERED: Prevnar 13-Val Conj/PF 0.5 ML SYRINGE IM ONE (09:00)
[2020-12-19] MEDS ORDERED: ADENOSINE 60 MG/20 ML VIAL ONE (13:12)
[2020-12-19 20:30] VITALS: BP 140/80; TEMP 98
[2020-12-19] MEDS ORDERED: Metoprolol Tartrate 50 MG TAB PO SCH (21:00)
[2020-12-19] MEDS ORDERED: Mirtazapine 15 MG Soltab PO SCH (21:00)
[2020-12-19] MEDS ORDERED: Isosorbide Dinitrate 20 MG TAB PO SCH (21:00)
[2020-12-20] MEDS ORDERED: metFORMIN 500 MG TAB PO SCH (08:00)
[2020-12-20] MEDS ORDERED: Polyethylene Glycol 3350 17 GM Packet PO SCH (09:00)
[2020-12-20] MEDS ORDERED: Ezetimibe 10 MG TAB PO SCH (09:00)
== END 2020-12-19 20:10 ==
LOC: ERS 13:12 → 2NO 16:11
PROVIDERS: ADMIT Student in an Organized Health Care Education/Training Program; ATTEND Student in an Organized Health Care Education/Training Program
DX: R07.89 Other chest pain (principal); I13.11 Hypertensive heart and chronic kidney disease without heart failure, with stage 5 chronic kidney disease, or end stage renal disease; E11.22 Type 2 diabetes mellitus with diabetic chronic kidney disease; N18.6 End stage renal disease; D63.1 Anemia in chronic kidney disease; E78.5 Hyperlipidemia, unspecified; I25.2 Old myocardial infarction; I25.10 Atherosclerotic heart disease of native coronary artery without angina pectoris; Z86.73 Personal history of transient ischemic attack (TIA), and cerebral infarction without residual deficits; Z79.02 Long term (current) use of antithrombotics/antiplatelets; Z79.4 Long term (current) use of insulin; Z79.899 Other long term (current) drug therapy; Z88.6 Allergy status to analgesic agent; Z95.5 Presence of coronary angioplasty implant and graft; Z99.2 Dependence on renal dialysis; Z20.822 Contact with and (suspected) exposure to COVID-19
CPT/HCPCS: 71045; 78452; 80048; 80061; 82962 ×2; 83036; 83880; 84484 ×2; 85025; 85379; 93005; 93017; 99285; A9500; G0378 ×3; U0003; U0005; 36415; 36416; 80053; 84443; 87635; J0153; J1644

== ENCOUNTER 2021-01-27 15:35 | Emergency (ER) | payer MEDICARE, MEDICAID ==
[2021-01-27 16:32] LABS: #Eosinphils 0.1 thou/uL (0.0-0.7); #Lymphocytes 1.3 thou/uL (1.20-3.40); #Monocytes 0.5 thou/uL (0.11-0.59); #Neutrophils 3.6 thou/uL (1.40-6.50); %Basophils 0.4 % (0.0-1.0); %Eosinophils 1.4 % (0.0-10.0); %Lymphocytes 23.5 % (21.0-51.0); %Monocytes 8.5 % (0.0-10.0); %Neutrophils 66.1 % (42.0-75.0); Hemoglobin 11.5 g/dL (14.0-18.0); Mean Corpuscular HGB CONC 33.5 g/dL (32.0-36.0); Mean Corpuscular Hemoglobin 31.8 pg (27.0-31.0); Mean Corpuscular Volume 94.9 fL (78.0-98.0); Mean Platelet Volume 6.3 fL (7.4-10.4); Platelet Count 197 thou/uL (130-400); RBC Distribution Width 13.9 % (11.5-14.5); White Blood Cell (WBC) Count 5.4 thou/uL (4.8-10.8)
[2021-01-27 16:57] LABS: ALT (SGPT) 32 U/L (8-55); AST (SGOT) 23 U/L (5-34); Albumin 3.6 g/dL (3.4-4.8); Alkaline Phosphatase 81 U/L (40-110); Anion Gap 17 mmol/L (10-20); BUN (Urea Nitrogen) 13 mg/dL (8.4-25.7); Bilirubin, Total 0.6 mg/dL (0.2-1.2); Calc. Creatinine Clearance 0 mL/min (70-130); Calcium 9.1 mg/dL (7.8-10.44); Carbon Dioxide 23 mmol/L (23-31); Chloride 104 mmol/L (98-107); Globulin 3.5 g/dL (2.4-3.5); Glucose 103 mg/dL (80-115); Lipase 45 U/L (8-78); Potassium 3.7 mmol/L (3.5-5.1); Protein, Total 7.1 g/dL (5.8-8.1); Sodium 140 mmol/L (136-145)
== END 2021-01-27 19:32 ==
LOC: ERS 15:35
DX: I12.0 Hypertensive chronic kidney disease with stage 5 chronic kidney disease or end stage renal disease (principal); N18.6 End stage renal disease; E78.5 Hyperlipidemia, unspecified; E78.00 Pure hypercholesterolemia, unspecified; E11.22 Type 2 diabetes mellitus with diabetic chronic kidney disease; D50.9 Iron deficiency anemia, unspecified; K21.9 Gastro-esophageal reflux disease without esophagitis; Z99.2 Dependence on renal dialysis
CPT/HCPCS: 36415; 36416; 74176; 80053; 83690; 85025; 93005

== ENCOUNTER 2021-08-08 19:53 | Inpatient (IN) | payer MEDICARE, MEDICAID ==
[~2021-08-08 19:53] MED LIST: Iopamidol-370 76% 500 ML 1 ML ONE
[2021-08-08 20:32] LABS: Bacteria/HPF None Seen HPF (None Seen); Bilirubin Negative (Negative); Blood, Urine Negative (Negative); Clarity Clear (Clear); Glucose, Urine (Dipstick) Normal (Negative); Ketone, Urine Negative (Negative); Leukocyte Negative Leu/uL (Negative); Nitrite Negative (Negative); Protein, Urine (Dipstick) 200 mg/dL (Neg-Trace); RBC/HPF 0-3 HPF (0-3); Renal Epithelial 0-3 HPF (None Seen); Specific Gravity, Urine 1.018 (1.002-1.036); Squamous Epithelial None Seen HPF (0-3); Transitional Epithelial 0-3 HPF (None Seen); WBC/HPF 0-3 HPF (0-3)
[2021-08-08 20:37] LABS: #Basophils 0.1 thou/uL (0.0-0.2); #Eosinphils 0.1 thou/uL (0.0-0.7); #Lymphocytes 2.6 thou/uL (1.20-3.40); #Monocytes 0.5 thou/uL (0.11-0.59); #Neutrophils 2.3 thou/uL (1.40-6.50); %Basophils 1.1 % (0.0-1.0); %Eosinophils 1.3 % (0.0-10.0); %Lymphocytes 46.4 % (21.0-51.0); %Monocytes 9.7 % (0.0-10.0); %Neutrophils 41.5 % (42.0-75.0); Hemoglobin 12.3 g/dL (14.0-18.0); Mean Corpuscular HGB CONC 31.7 g/dL (32.0-36.0); Mean Corpuscular Hemoglobin 30.6 pg (27.0-31.0); Mean Corpuscular Volume 96.4 fL (78.0-98.0); Mean Platelet Volume 6.3 fL (7.4-10.4); Platelet Count 228 thou/uL (130-400); RBC Distribution Width 15.1 % (11.5-14.5); Red Blood Cell (RBC) Count 4.01 mill/uL (4.70-6.10); White Blood Cell (WBC) Count 5.5 thou/uL (4.8-10.8)
[2021-08-08 21:01] LABS: ALT (SGPT) 27 U/L (8-55); AST (SGOT) 20 U/L (5-34); Albumin 3.5 g/dL (3.4-4.8); Alkaline Phosphatase 69 U/L (40-110); Anion Gap 13 mmol/L (10-20); BUN (Urea Nitrogen) 30 mg/dL (8.4-25.7); Bilirubin, Total 0.4 mg/dL (0.2-1.2); Calc. Creatinine Clearance 0 mL/min (70-130); Calcium 8.5 mg/dL (7.8-10.44); Carbon Dioxide 27 mmol/L (23-31); Chloride 103 mmol/L (98-107); Globulin 3.3 g/dL (2.4-3.5); Glucose 135 mg/dL (80-115); Lipase 115 U/L (8-78); Magnesium 2.3 mg/dL (1.6-2.6); Potassium 5.1 mmol/L (3.5-5.1); Protein, Total 6.8 g/dL (5.8-8.1); Sodium 138 mmol/L (136-145)
[2021-08-08 22:50] LABS: Acetaminophen Less than 6.0 mcg/mL (10.0-30.0); Alcohol Less than 10 mg/dL (Less than 10); Salicylate Less than 8.0 mg/dL (15.0-30.0)
[2021-08-08] MEDS ORDERED: cefTRIAXone\\ROCEPHIN 2 GM VIAL ONE (22:51)
[2021-08-08 23:34] LABS: Lactic Acid 2.1 mmol/L (0.5-2.2)
[2021-08-09] MEDS ORDERED: Acetaminophen 325 MG TAB PO PRN (00:26)
[2021-08-09] MEDS ORDERED: Ondansetron PF 4 MG/2 ML Vial IVP PRN (00:26)
[2021-08-09] MEDS ORDERED: Dextrose 5% in Water 1,000 ML IV PRN (00:28)
[2021-08-09] MEDS ORDERED: Dextrose 50% Abboject 50 ML SYRINGE SLOW IVP PRN (00:28)
[2021-08-09] MEDS ORDERED: HumaLOG 300 UNITS/3 ML VIAL SC PRN (00:28)
[2021-08-09] MEDS ORDERED: hydrALAZINE 20 MG/ML VIAL SLOW IVP PRN ×2 (00:30→00:53)
[2021-08-09 00:43] VITALS: BMI 24.8
[2021-08-09] MEDS ORDERED: Labetalol HCl 100 MG/20 ML VIAL SLOW IVP PRN (00:53)
[2021-08-09] MEDS ORDERED: Clopidogrel Bisulfate 75 MG TAB PO SCH ×2 (01:15→09:00)
[2021-08-09 01:43] LABS: Troponin I Less than 0.010 ng/mL (< 0.028)
[2021-08-09 03:59] LABS: Amphetamine Not Detected (NotDetected); Barbiturates Screen Not Detected (NotDetected); Benzodiazepine Screen Not Detected (NotDetected); Cocaine Metabolite Screen Not Detected (NotDetected); Methadone Not Detected (NotDetected); Methamphetamine Not Detected (NotDetected); Opiate Screen Not Detected (NotDetected); Oxycodone Screen Not Detected (NotDetected); Phencyclidine (PCP) Not Detected (NotDetected); THC/Cannabinoid Screen Not Detected (NotDetected); Tricyclic Screen Not Detected (NotDetected)
[2021-08-09 04:42] LABS: #Eosinphils 0.1 thou/uL (0.0-0.7); #Lymphocytes 2.2 thou/uL (1.20-3.40); #Monocytes 0.5 thou/uL (0.11-0.59); #Neutrophils 2.3 thou/uL (1.40-6.50); %Eosinophils 1.6 % (0.0-10.0); %Lymphocytes 43.4 % (21.0-51.0); %Monocytes 9.1 % (0.0-10.0); Hemoglobin 10.7 g/dL (14.0-18.0); Mean Corpuscular HGB CONC 31.6 g/dL (32.0-36.0); Mean Corpuscular Hemoglobin 30.4 pg (27.0-31.0); Mean Platelet Volume 6.3 fL (7.4-10.4); Platelet Count 197 thou/uL (130-400); RBC Distribution Width 14.8 % (11.5-14.5); Red Blood Cell (RBC) Count 3.51 mill/uL (4.70-6.10)
[2021-08-09 05:06] LABS: Anion Gap 12 mmol/L (10-20); BUN (Urea Nitrogen) 31 mg/dL (8.4-25.7); Calc. Creatinine Clearance 19 mL/min (70-130); Calcium 8.5 mg/dL (7.8-10.44); Carbon Dioxide 26 mmol/L (23-31); Cardiac Risk 2.9 (Less than 4.5); Chloride 106 mmol/L (98-107); Cholesterol 90 mg/dl (< 200 Desired); Glucose 96 mg/dL (80-115); HDL Cholesterol 31 mg/dL (>60 Neg Risk); LDL Cholesterol, Calculated 47 mg/dL; Potassium 4.7 mmol/L (3.5-5.1); Sodium 139 mmol/L (136-145); Triglycerides 59 mg/dL (Less than 150)
[2021-08-09 12:13] LABS: SARS-CoV-2 PCR by NAA Not Detected (NotDetected)
[2021-08-09] MEDS: Heparin 5,000 UNITS/ML VIAL SC SCH ×3 (12:34→21:37)
[2021-08-09] MEDS: Famotidine 20 MG TAB PO SCH (13:07)
[2021-08-09] MEDS ORDERED: Dextrose 5 %-0.45 % NaCl 1,000 ML IV SCH (17:30)
[2021-08-09] MEDS: Dextrose 10% in Water 1,000 ML IV SCH (18:42)
[2021-08-09] MEDS ORDERED: Atorvastatin Calcium 40 MG TAB PO SCH (21:00)
[2021-08-09] MEDS: Isosorbide Dinitrate 20 MG TAB PO SCH (21:35)
[2021-08-09] MEDS: Metoprolol Tartrate 50 MG TAB PO SCH (21:35)
[2021-08-09] MEDS: Atorvastatin Calcium 40 MG TAB PO SCH (21:36)
[2021-08-10 04:56] LABS: #Eosinphils 0.1 thou/uL (0.0-0.7); #Lymphocytes 1.7 thou/uL (1.20-3.40); #Monocytes 0.4 thou/uL (0.11-0.59); #Neutrophils 1.5 thou/uL (1.40-6.50); %Basophils 0.5 % (0.0-1.0); %Eosinophils 2.5 % (0.0-10.0); %Lymphocytes 47.2 % (21.0-51.0); %Monocytes 9.5 % (0.0-10.0); %Neutrophils 40.3 % (42.0-75.0); Hemoglobin 11.4 g/dL (14.0-18.0); Mean Corpuscular HGB CONC 31.3 g/dL (32.0-36.0); Mean Corpuscular Hemoglobin 29.8 pg (27.0-31.0); Mean Corpuscular Volume 95.2 fL (78.0-98.0); Mean Platelet Volume 6.6 fL (7.4-10.4); Platelet Count 223 thou/uL (130-400); RBC Distribution Width 14.8 % (11.5-14.5); Red Blood Cell (RBC) Count 3.84 mill/uL (4.70-6.10); White Blood Cell (WBC) Count 3.7 thou/uL (4.8-10.8)
[2021-08-10 05:11] LABS: Anion Gap 10 mmol/L (10-20); BUN (Urea Nitrogen) 14 mg/dL (8.4-25.7); Calc. Creatinine Clearance 27 mL/min (70-130); Carbon Dioxide 33 mmol/L (23-31); Chloride 100 mmol/L (98-107); Glucose 104 mg/dL (80-115); Potassium 3.9 mmol/L (3.5-5.1); Sodium 139 mmol/L (136-145)
[2021-08-10] MEDS: Heparin 5,000 UNITS/ML VIAL SC SCH ×3 (10:41→21:11)
[2021-08-10] MEDS: Ezetimibe 10 MG TAB PO SCH (10:41)
[2021-08-10] MEDS: Clopidogrel Bisulfate 75 MG TAB PO SCH (10:41)
[2021-08-10] MEDS: Metoprolol Tartrate 50 MG TAB PO SCH ×2 (10:42→21:10)
[2021-08-10] MEDS: Famotidine 20 MG TAB PO SCH (10:42)
[2021-08-10] MEDS: Isosorbide Dinitrate 20 MG TAB PO SCH ×2 (10:42→21:10)
[2021-08-10] MEDS: Atorvastatin Calcium 40 MG TAB PO SCH (21:10)
[2021-08-11 05:43] LABS: Hemoglobin 10.8 g/dL (14.0-18.0); Mean Corpuscular HGB CONC 32.2 g/dL (32.0-36.0); Mean Corpuscular Hemoglobin 30.5 pg (27.0-31.0); Mean Corpuscular Volume 94.9 fL (78.0-98.0); Mean Platelet Volume 6.6 fL (7.4-10.4); Platelet Count 249 thou/uL (130-400); RBC Distribution Width 14.6 % (11.5-14.5); Red Blood Cell (RBC) Count 3.54 mill/uL (4.70-6.10); White Blood Cell (WBC) Count 4.8 thou/uL (4.8-10.8)
[2021-08-11 05:50] LABS: Anion Gap 11 mmol/L (10-20); BUN (Urea Nitrogen) 24 mg/dL (8.4-25.7); Calc. Creatinine Clearance 18 mL/min (70-130); Calcium 8.1 mg/dL (7.8-10.44); Carbon Dioxide 30 mmol/L (23-31); Chloride 98 mmol/L (98-107); Glucose 115 mg/dL (80-115); Potassium 4.2 mmol/L (3.5-5.1); Sodium 135 mmol/L (136-145)
[2021-08-11 06:26] LABS: Band 2 % (5-11); Lymphocytes 56 % (21-51); MDiff Complete? YES; Monocytes 4 % (0-10); Neutrophil 37 % (42-75)
[2021-08-11] MEDS: Ezetimibe 10 MG TAB PO SCH (08:40)
[2021-08-11] MEDS: Isosorbide Dinitrate 20 MG TAB PO SCH ×2 (08:40→22:18)
[2021-08-11] MEDS: Famotidine 20 MG TAB PO SCH (08:40)
[2021-08-11] MEDS: Clopidogrel Bisulfate 75 MG TAB PO SCH (08:41)
[2021-08-11] MEDS: Heparin 5,000 UNITS/ML VIAL SC SCH ×3 (08:42→22:18)
[2021-08-11] MEDS: Dextrose 10% in Water 1,000 ML IV SCH (08:42)
[2021-08-11] MEDS: Metoprolol Tartrate 50 MG TAB PO SCH ×2 (08:43→22:18)
[2021-08-11] MEDS ORDERED: Mirtazapine 30 MG Soltab PO SCH (21:00)
[2021-08-11] MEDS: Atorvastatin Calcium 40 MG TAB PO SCH (22:18)
[2021-08-12] MEDS: Polyethylene Glycol 3350 17 GM Packet PO SCH (08:45)
[2021-08-12] MEDS: Ezetimibe 10 MG TAB PO SCH (08:46)
[2021-08-12] MEDS: Heparin 5,000 UNITS/ML VIAL SC SCH ×3 (08:46→20:37)
[2021-08-12] MEDS: Metoprolol Tartrate 50 MG TAB PO SCH ×2 (08:46→20:39)
[2021-08-12] MEDS: Isosorbide Dinitrate 20 MG TAB PO SCH ×2 (08:46→20:40)
[2021-08-12] MEDS: Clopidogrel Bisulfate 75 MG TAB PO SCH (08:46)
[2021-08-12] MEDS: Famotidine 20 MG TAB PO SCH (08:46)
[2021-08-12] MEDS: Atorvastatin Calcium 40 MG TAB PO SCH (20:39)
[2021-08-13] MEDS: Polyethylene Glycol 3350 17 GM Packet PO SCH (09:30)
[2021-08-13] MEDS: Heparin 5,000 UNITS/ML VIAL SC SCH ×3 (09:30→20:50)
[2021-08-13] MEDS: Famotidine 20 MG TAB PO SCH (09:31)
[2021-08-13] MEDS: Isosorbide Dinitrate 20 MG TAB PO SCH ×2 (09:31→20:49)
[2021-08-13] MEDS: Clopidogrel Bisulfate 75 MG TAB PO SCH (09:31)
[2021-08-13] MEDS: Amlodipine 10 MG TAB PO SCH (09:31)
[2021-08-13] MEDS: Metoprolol Tartrate 50 MG TAB PO SCH ×2 (09:31→20:49)
[2021-08-13] MEDS: Ezetimibe 10 MG TAB PO SCH (09:31)
[2021-08-13] MEDS: Atorvastatin Calcium 40 MG TAB PO SCH (20:49)
[2021-08-14] MEDS: Ezetimibe 10 MG TAB PO SCH (14:18)
[2021-08-14] MEDS: Polyethylene Glycol 3350 17 GM Packet PO SCH (14:18)
[2021-08-14] MEDS: Heparin 5,000 UNITS/ML VIAL SC SCH ×3 (14:18→20:26)
[2021-08-14] MEDS: Amlodipine 10 MG TAB PO SCH (14:19)
[2021-08-14] MEDS: Clopidogrel Bisulfate 75 MG TAB PO SCH (14:19)
[2021-08-14] MEDS: Famotidine 20 MG TAB PO SCH (14:19)
[2021-08-14] MEDS: Metoprolol Tartrate 50 MG TAB PO SCH ×2 (14:20→20:24)
[2021-08-14] MEDS: Isosorbide Dinitrate 20 MG TAB PO SCH ×2 (14:20→20:26)
[2021-08-14] MEDS: Atorvastatin Calcium 40 MG TAB PO SCH (20:24)
[2021-08-15 08:08] LABS: Hemoglobin 11.2 g/dL (14.0-18.0); Mean Corpuscular HGB CONC 31.3 g/dL (32.0-36.0); Platelet Count 226 thou/uL (130-400); RBC Distribution Width 14.4 % (11.5-14.5); Red Blood Cell (RBC) Count 3.73 mill/uL (4.70-6.10); White Blood Cell (WBC) Count 5.8 thou/uL (4.8-10.8)
[2021-08-15 08:18] LABS: Albumin 3.4 g/dL (3.4-4.8); Anion Gap 11 mmol/L (10-20); BUN (Urea Nitrogen) 17 mg/dL (8.4-25.7); BUN/Creatinine Ratio 4.58; Calc. Creatinine Clearance 20 mL/min (70-130); Calcium 9.3 mg/dL (7.8-10.44); Carbon Dioxide 33 mmol/L (23-31); Chloride 99 mmol/L (98-107); Glucose 95 mg/dL (80-115); Phosphorus 2.4 mg/dL (2.3-4.7); Sodium 139 mmol/L (136-145)
[2021-08-15 08:54] LABS: Eosinophils 1 % (0-10); Lymphocytes 54 % (21-51); MDiff Complete? YES; Monocytes 9 % (0-10); Neutrophil 35 % (42-75); Platelet Morphology Comment Appears Adequate; Polychromasia SLIGHT = 2-3 cells (100X) (0-2/hpf)
[2021-08-15] MEDS: Famotidine 20 MG TAB PO SCH (08:56)
[2021-08-15] MEDS: Amlodipine 10 MG TAB PO SCH (08:56)
[2021-08-15] MEDS: Heparin 5,000 UNITS/ML VIAL SC SCH (08:56)
[2021-08-15] MEDS: Ezetimibe 10 MG TAB PO SCH (08:56)
[2021-08-15] MEDS: Metoprolol Tartrate 50 MG TAB PO SCH (08:57)
[2021-08-15] MEDS: Isosorbide Dinitrate 20 MG TAB PO SCH (08:57)
[2021-08-15] MEDS: Clopidogrel Bisulfate 75 MG TAB PO SCH (08:57)
[2021-08-15] MEDS: Polyethylene Glycol 3350 17 GM Packet PO SCH (08:58)
[2021-08-15] MEDS: HumaLOG 300 UNITS/3 ML VIAL SC PRN ×2 (09:33→12:30)
[2021-08-15 12:08] VITALS: BP 131/83; TEMP 97.9
== END 2021-08-15 14:48 | disposition home or self-care (01) | DRG 637 ==
LOC: ERS 19:53 → 2NO 22:57 → OBSVTOIN 08-09 10:49 → T4-B 08-13 17:51
PROVIDERS: ADMIT Internal Medicine; ATTEND Hospitalist
PROC: 4A10X4Z Monitoring of Central Nervous Electrical Activity, External Approach (ICD-10-PCS; principal; 2021-08-09)
PROC: 5A1D70Z Performance of Urinary Filtration, Intermittent, Less than 6 Hours Per Day (ICD-10-PCS; 2021-08-11)
DX: E11.649 Type 2 diabetes mellitus with hypoglycemia without coma (principal); G93.41 Metabolic encephalopathy; I69.354 Hemiplegia and hemiparesis following cerebral infarction affecting left non-dominant side; I12.0 Hypertensive chronic kidney disease with stage 5 chronic kidney disease or end stage renal disease; E87.1 Hypo-osmolality and hyponatremia; N18.6 End stage renal disease; E78.5 Hyperlipidemia, unspecified; I25.10 Atherosclerotic heart disease of native coronary artery without angina pectoris; E11.22 Type 2 diabetes mellitus with diabetic chronic kidney disease; E78.00 Pure hypercholesterolemia, unspecified; K21.9 Gastro-esophageal reflux disease without esophagitis; F32.A Depression, unspecified; D63.1 Anemia in chronic kidney disease; Z20.822 Contact with and (suspected) exposure to COVID-19; Z99.2 Dependence on renal dialysis; Z88.8 Allergy status to other drugs, medicaments and biological substances; Z79.899 Other long term (current) drug therapy; Z95.5 Presence of coronary angioplasty implant and graft; Z87.891 Personal history of nicotine dependence
CPT/HCPCS: 36415; 36416; 51701; 70450; 70496; 70498; 70551; 71045; 74230; 80048; 80053; 80061; 80069; 80306; 80307; 81003; 81015; 82533; 83036; 83605; 83690; 83735; 84443; 84484; 85025; 87040; 87086; 90935; 93005; 93306; 95712; 95819; 95957; 96365; G0257; G0378; J0696; J1644; J1815; Q9967; U0003; U0005